=== PATIENT | male | born 1960 | race Caucasian/White ===

== ENCOUNTER 2019-05-24 06:26 | Inpatient (IN) | payer MEDICARE, BC, MEDICAID ==
[~2019-05-24] VITALS: Ht 162.6 cm; Wt 145.6 kg
[2019-05-24] MEDS ORDERED: FENTANYL CITRATE/PF 50MCG/ML 2ML VIAL IV ONE ×2 (07:30→09:30)
[2019-05-24] MEDS ORDERED: ONDANSETRON HCL 4MG/2ML INJ IV ONE (07:30)
[2019-05-24] MEDS ORDERED: DIATR MEGLU/DIATRIZOATE SOLN 120ML ONE (08:11)
[2019-05-24 09:08] LABS: BASOPHILS % 1.5 % (0.0-2.0); EOSINOPHILS % 0.2 % (0.0-5.0); HEMATOCRIT. 25.3 % (42.0-52.0); HEMOGLOBIN. 8.2 g/dL (14.0-18.0); LYMPHOCYTES % 44.1 % (20.0-50.0); MEAN CORPUSCULAR VOLUME 71.2 fL (80.0-94.0); MONOCYTES % 1.8 % (2.0-8.0); NEUTROPHILS % 52.4 % (40.0-76.0); RED BLOOD CELL COUNT 3.55 mill/uL (4.7-6.1); RED CELL DISTRIBUTION WIDTH 22.7 % (11.6-14.6)
[2019-05-24 09:15] LABS: CHLORIDE 110 mEq/L (98-107); PROTHROMBIN TIME 10.4 sec (9.6-11.0)
[2019-05-24 09:56] LABS: PLATELET 205 x1000/uL (130-400); PLATELET ESTIMATE NORMAL
[2019-05-24] MEDS ORDERED: SODIUM CHLORIDE 0.9% 1,000 ML IV ONE ×3 (10:06→23:30)
[2019-05-24 10:27] LABS: CLARITY URINE TURBID (CLEAR); COLOR URINE YELLOW (YELLOW); KETONES URINE NEGATIVE (NEGATIVE); LEUKOCYTE ESTERASE URINE 2+ (NEGATIVE); NITRITE URINE NEGATIVE (NEGATIVE); OCCULT BLOOD URINE NEGATIVE (NEGATIVE); PH URINE 5.5 (4.5-8.0); PROTEIN URINE NEGATIVE (NEGATIVE); UROBILINOGEN URINE 0.2 E.U./dL (0.2-1.0)
[2019-05-24] MEDS ORDERED: MORPHINE SULFATE 10 MG/ML CPJ IV ONE (10:45)
[2019-05-24] MEDS ORDERED: ACETAMINOPHEN 325MG TABLET PO PRN (12:00)
[2019-05-24] MEDS ORDERED: ONDANSETRON HCL 4MG/2ML INJ IV PRN (12:00)
[2019-05-24] MEDS ORDERED: DEXTROSE 50% WATER 50ML SYRINGE IV PRN (12:00)
[2019-05-24] MEDS ORDERED: HYDROCODONE/ACETAMINOPHEN 5/325MG TABLET PO PRN (12:00)
[2019-05-24] MEDS: BLOOD SUGAR DIAGNOSTIC STRIP TEST SCH ×3 (13:00→21:00)
[2019-05-24] MEDS: INSULIN LISPRO 100 UNITS/ML SUBCUT SCH ×3 (13:20→21:00)
[2019-05-24] MEDS ORDERED: MORPHINE SULFATE 4 MG/ML CPJ (NOT FOR IM USE) IV PRN (14:45)
[2019-05-24] MEDS: MORPHINE SULFATE 2 MG/ML CPJ (NOT FOR IM USE) IV PRN ×3 (15:25→22:04)
[2019-05-24 16:00] VITALS: BP 68/37
[2019-05-24 17:00] VITALS: BP 95/55
[2019-05-24 17:30] VITALS: BP 99/50
[2019-05-24 20:00] VITALS: BP 95/63
[2019-05-24] MEDS: HEPARIN 5000 UNITS/ML VIAL SUBCUT SCH (20:35)
[2019-05-24 21:00] VITALS: BP 120/87
[2019-05-24] MEDS: LORAZEPAM 2MG/ML CPJ IV PRN (22:04)
[2019-05-24] MEDS ORDERED: SODIUM CHLORIDE 0.9% 100 ML IV ONE (22:30)
[2019-05-25] VITALS (8 sets, daily range): BP systolic 89–107; BP diastolic 50–68
[2019-05-25] MEDS: SODIUM CHLORIDE 0.9% 1,000 ML IV SCH ×5 (00:29→19:02)
[2019-05-25] MEDS: MORPHINE SULFATE 2 MG/ML CPJ (NOT FOR IM USE) IV PRN ×5 (02:30→21:59)
[2019-05-25] MEDS ORDERED: METOPROLOL TARTRATE 5MG/5ML VIAL IV PRN (05:30)
[2019-05-25] MEDS ORDERED: SODIUM CHLORIDE 0.9% 1,000 ML IV ONE (05:45)
[2019-05-25] MEDS: BLOOD SUGAR DIAGNOSTIC STRIP TEST SCH ×4 (07:46→21:00)
[2019-05-25] MEDS: INSULIN LISPRO 100 UNITS/ML SUBCUT SCH ×4 (07:47→21:00)
[2019-05-25] MEDS: HEPARIN 5000 UNITS/ML VIAL SUBCUT SCH ×2 (08:31→21:01)
[2019-05-25 13:45] LABS: HEMOGLOBIN. 7.2 g/dL (14.0-18.0); MEAN CORPUSCULAR HEMOGLOBIN 23.2 pg (28.0-32.0); MEAN CORPUSCULAR VOLUME 70.6 fL (80.0-94.0); MEAN PLATELET VOLUME 9.9 fl (7.4-10.4); PLATELET 204 x1000/uL (130-400); RED BLOOD CELL COUNT 3.11 mill/uL (4.7-6.1); RED CELL DISTRIBUTION WIDTH 22.3 % (11.6-14.6)
[2019-05-25 14:04] LABS: CHLORIDE 112 mEq/L (98-107)
[2019-05-25] MEDS: HYDROCODONE/ACETAMINOPHEN 5/325MG TABLET PO PRN (17:08)
[2019-05-25 17:10] LABS: PLATELET ESTIMATE NORMAL
[2019-05-25] MEDS ORDERED: OMEPRAZOLE 20MG CAPSULE EXTENDED RELEASE PO SCH (20:15)
[2019-05-26] VITALS (15 sets, daily range): BP systolic 76–109; BP diastolic 35–68
[2019-05-26] MEDS: HYDROCODONE/ACETAMINOPHEN 5/325MG TABLET PO PRN ×2 (00:06→10:32)
[2019-05-26] MEDS: SODIUM CHLORIDE 0.9% 1,000 ML IV SCH ×4 (02:01→21:19)
[2019-05-26] MEDS: MORPHINE SULFATE 2 MG/ML CPJ (NOT FOR IM USE) IV PRN ×2 (05:00→16:45)
[2019-05-26] MEDS: BLOOD SUGAR DIAGNOSTIC STRIP TEST SCH ×4 (06:54→21:09)
[2019-05-26] MEDS: INSULIN LISPRO 100 UNITS/ML SUBCUT SCH ×4 (07:50→21:00)
[2019-05-26] MEDS: HEPARIN 5000 UNITS/ML VIAL SUBCUT SCH ×2 (09:00→21:14)
[2019-05-26 11:56] LABS: CHLORIDE 111 mEq/L (98-107)
[2019-05-26 11:58] LABS: MEAN CORPUSCULAR HEMOGLOBIN 23.1 pg (28.0-32.0); MEAN CORPUSCULAR VOLUME 70.2 fL (80.0-94.0); MEAN PLATELET VOLUME 10.4 fl (7.4-10.4); PLATELET 204 x1000/uL (130-400); RED BLOOD CELL COUNT 2.95 mill/uL (4.7-6.1); RED CELL DISTRIBUTION WIDTH 22.6 % (11.6-14.6)
[2019-05-26 12:08] LABS: HEMATOCRIT. 20.7 % (42.0-52.0); HEMOGLOBIN. 6.8 g/dL (14.0-18.0)
[2019-05-26] MEDS ORDERED: POTASSIUM CHLORIDE 20MEQ TABLET SR PO NR (12:15)
[2019-05-26] MEDS: LIDOCAINE HCL 4% CREAM 76GM TUBE TP SCH ×2 (12:18→17:15)
[2019-05-26] MEDS ORDERED: SODIUM CHLORIDE 0.9% 500 ML IV ONE ×2 (13:00→13:10)
[2019-05-26 14:24] LABS: PLATELET ESTIMATE NORMAL
[2019-05-26] MEDS ORDERED: MAGNESIUM 2 G PREMIX 50 ML IV SCH (17:00)
[2019-05-27] VITALS (8 sets, daily range): BP systolic 85–108; BP diastolic 42–63
[2019-05-27] MEDS: LIDOCAINE HCL 4% CREAM 76GM TUBE TP SCH ×4 (01:21→17:22)
[2019-05-27] MEDS: FILGRASTIM-TBO 480 MCG/0.8 ML SYRINGE SQ SCH ×2 (01:22→20:39)
[2019-05-27] MEDS: SODIUM CHLORIDE 0.9% 1,000 ML IV SCH (05:01)
[2019-05-27] MEDS: BLOOD SUGAR DIAGNOSTIC STRIP TEST SCH ×4 (06:20→20:24)
[2019-05-27 06:55] LABS: CHLORIDE 109 mEq/L (98-107)
[2019-05-27 07:26] LABS: HEMATOCRIT. 22.6 % (42.0-52.0); HEMOGLOBIN. 7.6 g/dL (14.0-18.0); MEAN PLATELET VOLUME 10.6 fl (7.4-10.4); PLATELET 214 x1000/uL (130-400); RED BLOOD CELL COUNT 3.18 mill/uL (4.7-6.1); RED CELL DISTRIBUTION WIDTH 23.9 % (11.6-14.6)
[2019-05-27] MEDS: INSULIN LISPRO 100 UNITS/ML SUBCUT SCH ×4 (07:40→20:24)
[2019-05-27] MEDS: HEPARIN 5000 UNITS/ML VIAL SUBCUT SCH ×2 (08:47→20:39)
[2019-05-27] MEDS ORDERED: MAGNESIUM 2 G PREMIX 50 ML IV SCH (10:00)
[2019-05-27] MEDS ORDERED: SODIUM CHL 0.9% + KCL 20MEQ/L 1,000 ML IV ONE (10:00)
[2019-05-27 10:37] LABS: INR 1.1; PROTHROMBIN TIME 11.4 sec (9.6-11.0)
[2019-05-27] MEDS: LORAZEPAM 2MG/ML CPJ IV PRN (12:22)
[2019-05-27] MEDS: MORPHINE SULFATE 2 MG/ML CPJ (NOT FOR IM USE) IV PRN ×2 (17:32→22:12)
[2019-05-27 23:23] LABS: PLATELET ESTIMATE NORMAL
[2019-05-28] VITALS: BP 100/62
[2019-05-28] MEDS: LIDOCAINE HCL 4% CREAM 76GM TUBE TP SCH ×4 (00:01→17:03)
[2019-05-28] MEDS: LORAZEPAM 2MG/ML CPJ IV PRN (01:57)
[2019-05-28] MEDS: SODIUM CHLORIDE 0.9% 1,000 ML IV SCH ×4 (02:17→21:15)
[2019-05-28 04:00] VITALS: BP 98/53
[2019-05-28] MEDS: BLOOD SUGAR DIAGNOSTIC STRIP TEST SCH ×4 (05:50→21:14)
[2019-05-28] MEDS: INSULIN LISPRO 100 UNITS/ML SUBCUT SCH ×4 (07:29→21:00)
[2019-05-28 08:00] VITALS: BP 105/54
[2019-05-28] MEDS: HEPARIN 5000 UNITS/ML VIAL SUBCUT SCH ×2 (08:00→21:14)
[2019-05-28 12:00] VITALS: BP 107/61
[2019-05-28] MEDS: MORPHINE SULFATE 2 MG/ML CPJ (NOT FOR IM USE) IV PRN ×2 (13:01→21:16)
[2019-05-28 15:37] LABS: HEMATOCRIT. 21.9 % (42.0-52.0); HEMOGLOBIN. 7.3 g/dL (14.0-18.0); MEAN CORPUSCULAR HEMOGLOBIN 23.4 pg (28.0-32.0); MEAN CORPUSCULAR VOLUME 70.5 fL (80.0-94.0); MEAN PLATELET VOLUME 10.1 fl (7.4-10.4); PLATELET 232 x1000/uL (130-400); RED BLOOD CELL COUNT 3.11 mill/uL (4.7-6.1); RED CELL DISTRIBUTION WIDTH 23.8 % (11.6-14.6)
[2019-05-28 15:43] LABS: CHLORIDE 110 mEq/L (98-107)
[2019-05-28 16:00] VITALS: BP 104/56
[2019-05-28] MEDS: HYDROCODONE/ACETAMINOPHEN 5/325MG TABLET PO PRN (17:03)
[2019-05-28] MEDS ORDERED: POTASSIUM CHLORIDE INJ 40 MEQ in DEXT 5% WATER 250 ML IV SCH (18:00)
[2019-05-28 18:05] LABS: PLATELET ESTIMATE NORMAL
[2019-05-28 20:00] VITALS: BP 98/52
[2019-05-28] MEDS: FILGRASTIM-TBO 480 MCG/0.8 ML SYRINGE SQ SCH (21:15)
[2019-05-29] VITALS: BP_SYST 129; BP_SYST 83; BP_DIAS 52; BP_DIAS 60
[2019-05-29] MEDS: LIDOCAINE HCL 4% CREAM 76GM TUBE TP SCH ×5 (02:26→23:09)
[2019-05-29] MEDS: SODIUM CHLORIDE 0.9% 1,000 ML IV SCH ×3 (02:26→17:41)
[2019-05-29] MEDS: LORAZEPAM 2MG/ML CPJ IV PRN (02:26)
[2019-05-29 04:00] VITALS: BP 111/57
[2019-05-29] MEDS ORDERED: HYDROCORTISONE SOD SUCCINATE 100 MG/2 ML VIAL IV NR (05:00)
[2019-05-29] MEDS: BLOOD SUGAR DIAGNOSTIC STRIP TEST SCH ×4 (05:27→20:51)
[2019-05-29] MEDS ORDERED: POTASSIUM CHLORIDE INJ 40 MEQ in DEXT 5% WATER 250 ML IV NR (06:00)
[2019-05-29 07:09] LABS: CHLORIDE 110 mEq/L (98-107)
[2019-05-29 07:12] LABS: BASOPHILS % 0.2 % (0.0-2.0); EOSINOPHILS % 0.6 % (0.0-5.0); HEMATOCRIT. 22.9 % (42.0-52.0); HEMOGLOBIN. 7.6 g/dL (14.0-18.0); MEAN CORPUSCULAR HEMOGLOBIN 23.8 pg (28.0-32.0); MEAN CORPUSCULAR VOLUME 71.6 fL (80.0-94.0); MEAN PLATELET VOLUME 9.6 fl (7.4-10.4); MONOCYTES % 12.4 % (2.0-8.0); NEUTROPHILS % 74.8 % (40.0-76.0); PLATELET 233 x1000/uL (130-400); RED BLOOD CELL COUNT 3.19 mill/uL (4.7-6.1); RED CELL DISTRIBUTION WIDTH 24.1 % (11.6-14.6)
[2019-05-29] MEDS: INSULIN LISPRO 100 UNITS/ML SUBCUT SCH ×4 (07:32→20:51)
[2019-05-29 08:01] VITALS: BP 100/59
[2019-05-29] MEDS: HEPARIN 5000 UNITS/ML VIAL SUBCUT SCH ×2 (08:14→20:51)
[2019-05-29 12:21] VITALS: BP 104/70
[2019-05-29] MEDS: HYDROCODONE/ACETAMINOPHEN 5/325MG TABLET PO PRN ×2 (13:40→21:45)
[2019-05-29 16:00] VITALS: BP 103/57
[2019-05-29] MEDS: MORPHINE SULFATE 2 MG/ML CPJ (NOT FOR IM USE) IV PRN (16:32)
[2019-05-29 16:43] LABS: CREATINE KINASE 71 IU/L (39-308)
[2019-05-29] MEDS: POLYVINYL ALCOHOL OPHTH DROPS 15ML BOTHEYE PRN (17:40)
[2019-05-29 20:00] VITALS: BP 107/74
[2019-05-30] VITALS (8 sets, daily range): BP systolic 80–141; BP diastolic 46–86
[2019-05-30] MEDS: MORPHINE SULFATE 2 MG/ML CPJ (NOT FOR IM USE) IV PRN ×3 (01:30→10:14)
[2019-05-30] MEDS: SODIUM CHLORIDE 0.9% 1,000 ML IV SCH ×2 (03:53→18:19)
[2019-05-30] MEDS: LIDOCAINE HCL 4% CREAM 76GM TUBE TP SCH ×3 (05:52→18:18)
[2019-05-30] MEDS ORDERED: GUAIFENESIN 200MG/10ML SUGAR FREE UDC PO PRN (06:00)
[2019-05-30] MEDS: BLOOD SUGAR DIAGNOSTIC STRIP TEST SCH ×4 (06:33→21:16)
[2019-05-30 06:58] LABS: HEMATOCRIT. 23.1 % (42.0-52.0); HEMOGLOBIN. 7.6 g/dL (14.0-18.0); MEAN CORPUSCULAR HEMOGLOBIN 23.5 pg (28.0-32.0); MEAN CORPUSCULAR VOLUME 71.3 fL (80.0-94.0); MEAN PLATELET VOLUME 9.3 fl (7.4-10.4); PLATELET 268 x1000/uL (130-400); RED BLOOD CELL COUNT 3.24 mill/uL (4.7-6.1); RED CELL DISTRIBUTION WIDTH 24.6 % (11.6-14.6)
[2019-05-30 07:34] LABS: CHLORIDE 108 mEq/L (98-107)
[2019-05-30] MEDS: INSULIN LISPRO 100 UNITS/ML SUBCUT SCH ×4 (07:50→21:00)
[2019-05-30] MEDS: POTASSIUM CHLORIDE 20MEQ TABLET SR PO SCH (08:53)
[2019-05-30] MEDS: POLYVINYL ALCOHOL OPHTH DROPS 15ML BOTHEYE PRN (08:54)
[2019-05-30] MEDS: HEPARIN 5000 UNITS/ML VIAL SUBCUT SCH ×3 (08:54→12:06)
[2019-05-30 09:21] LABS: PLATELET ESTIMATE NORMAL
[2019-05-30] MEDS ORDERED: MAGNESIUM 2 G PREMIX 50 ML IV NR (10:00)
[2019-05-30] MEDS: HYDROCODONE/ACETAMINOPHEN 5/325MG TABLET PO PRN ×2 (12:08→16:02)
[2019-05-30] MEDS ORDERED: MAGN400T29 MT (14:22)
[2019-05-30] MEDS ORDERED: HYDR-4001 PO (14:22)
[2019-05-30] MEDS ORDERED: DIGO-26 PO (14:22)
[2019-05-30] MEDS ORDERED: POTA20TA82 PO (14:22)
[2019-05-30] MEDS ORDERED: LORAZEPAM 2MG/ML CPJ IV NR (16:50)
[2019-05-30] MEDS ORDERED: DIGOXIN 125MCG TABLET PO SCH (18:00)
[2019-05-31] VITALS: BP 112/61
[2019-05-31] MEDS: LIDOCAINE HCL 4% CREAM 76GM TUBE TP SCH ×4 (00:55→17:50)
[2019-05-31 04:00] VITALS: BP 105/71
[2019-05-31] MEDS: BLOOD SUGAR DIAGNOSTIC STRIP TEST SCH ×4 (06:17→21:00)
[2019-05-31] MEDS: INSULIN LISPRO 100 UNITS/ML SUBCUT SCH ×4 (06:17→21:00)
[2019-05-31] MEDS: SODIUM CHLORIDE 0.9% 1,000 ML IV SCH (06:18)
[2019-05-31 06:19] LABS: HEMATOCRIT. 24.2 % (42.0-52.0); HEMOGLOBIN. 8.1 g/dL (14.0-18.0); MEAN CORPUSCULAR HEMOGLOBIN 23.8 pg (28.0-32.0); MEAN CORPUSCULAR VOLUME 71.3 fL (80.0-94.0); MEAN PLATELET VOLUME 9.2 fl (7.4-10.4); PLATELET 262 x1000/uL (130-400); RED CELL DISTRIBUTION WIDTH 24.8 % (11.6-14.6)
[2019-05-31 07:16] LABS: CHLORIDE 108 mEq/L (98-107)
[2019-05-31 08:00] VITALS: BP 109/58
[2019-05-31] MEDS: POTASSIUM CHLORIDE 20MEQ TABLET SR PO SCH (09:11)
[2019-05-31] MEDS: HYDROCODONE/ACETAMINOPHEN 5/325MG TABLET PO PRN ×2 (09:12→20:28)
[2019-05-31] MEDS: HEPARIN 5000 UNITS/ML VIAL SUBCUT SCH ×2 (09:16→21:59)
[2019-05-31 12:00] VITALS: BP 100/71
[2019-05-31 13:09] LABS: PLATELET ESTIMATE NORMAL
[2019-05-31 16:11] VITALS: BP 101/71
[2019-05-31 20:00] VITALS: BP 123/84
[2019-05-31] MEDS: SOTALOL HCL 80MG TABLET PO SCH (21:58)
[2019-05-31] MEDS: HYDROCORTISONE ACETATE 25MG SUPP PR SCH (21:58)
[2019-06-01] VITALS: BP 101/68
[2019-06-01] MEDS: LIDOCAINE HCL 4% CREAM 76GM TUBE TP SCH ×4 (00:51→18:19)
[2019-06-01 04:00] VITALS: BP 97/63
[2019-06-01] MEDS: HYDROCODONE/ACETAMINOPHEN 5/325MG TABLET PO PRN ×2 (05:04→12:21)
[2019-06-01 06:56] LABS: CHLORIDE 112 mEq/L (98-107)
[2019-06-01 06:59] LABS: BASOPHILS % 0.5 % (0.0-2.0); EOSINOPHILS % 0.3 % (0.0-5.0); HEMATOCRIT. 24.4 % (42.0-52.0); HEMOGLOBIN. 8.1 g/dL (14.0-18.0); LYMPHOCYTES % 18.6 % (20.0-50.0); MEAN CORPUSCULAR HEMOGLOBIN 23.3 pg (28.0-32.0); MEAN CORPUSCULAR VOLUME 70.1 fL (80.0-94.0); MEAN PLATELET VOLUME 9.4 fl (7.4-10.4); NEUTROPHILS % 68.6 % (40.0-76.0); PLATELET 230 x1000/uL (130-400); RED BLOOD CELL COUNT 3.49 mill/uL (4.7-6.1); RED CELL DISTRIBUTION WIDTH 24.7 % (11.6-14.6)
[2019-06-01] MEDS: INSULIN LISPRO 100 UNITS/ML SUBCUT SCH ×4 (07:50→20:41)
[2019-06-01 08:05] VITALS: BP 104/66
[2019-06-01] MEDS: POTASSIUM CHLORIDE 20MEQ TABLET SR PO SCH (08:13)
[2019-06-01] MEDS: HEPARIN 5000 UNITS/ML VIAL SUBCUT SCH ×2 (08:14→20:40)
[2019-06-01] MEDS: MORPHINE SULFATE 2 MG/ML CPJ (NOT FOR IM USE) IV PRN ×3 (08:27→23:12)
[2019-06-01] MEDS ORDERED: POTASSIUM CHLORIDE 20MEQ TABLET SR PO SCH (09:00)
[2019-06-01] MEDS: SOTALOL HCL 80MG TABLET PO SCH ×2 (09:00→20:41)
[2019-06-01] MEDS: HYDROCORTISONE ACETATE 25MG SUPP PR SCH ×2 (09:21→09:30)
[2019-06-01] MEDS: MAGNESIUM GLUCONATE 500MG TABLET PO SCH (09:21)
[2019-06-01] MEDS: BLOOD SUGAR DIAGNOSTIC STRIP TEST SCH ×4 (09:40→20:41)
[2019-06-01] MEDS ORDERED: POTASSIUM CHLORIDE 20MEQ/PACKET PO ONE (11:00)
[2019-06-01] MEDS ORDERED: LOPERAMIDE HCL 2MG CAPSULE PO PRN (11:45)
[2019-06-01] MEDS ORDERED: MAGNESIUM 2 G PREMIX 50 ML IV SCH (12:00)
[2019-06-01 12:15] VITALS: BP 114/74
[2019-06-01] MEDS: MORPHINE SULFATE 15MG TABLET SR PO SCH ×2 (13:58→20:40)
[2019-06-01 16:14] VITALS: BP 110/76
[2019-06-01 20:00] VITALS: BP 100/68
[2019-06-02] VITALS: BP 100/65
[2019-06-02] MEDS: LIDOCAINE HCL 4% CREAM 76GM TUBE TP SCH
[2019-06-02] MEDS: MORPHINE SULFATE 2 MG/ML CPJ (NOT FOR IM USE) IV PRN ×2 (03:18→08:32)
[2019-06-02 04:00] VITALS: BP 106/68
[2019-06-02] MEDS: BLOOD SUGAR DIAGNOSTIC STRIP TEST SCH (07:20)
[2019-06-02] MEDS: INSULIN LISPRO 100 UNITS/ML SUBCUT SCH (07:50)
[2019-06-02 08:00] VITALS: BP 108/71
[2019-06-02 08:01] LABS: BASOPHILS % 1.1 % (0.0-2.0); EOSINOPHILS % 0.7 % (0.0-5.0); HEMATOCRIT. 24.3 % (42.0-52.0); HEMOGLOBIN. 8.2 g/dL (14.0-18.0); LYMPHOCYTES % 23.9 % (20.0-50.0); MEAN CORPUSCULAR HEMOGLOBIN 23.9 pg (28.0-32.0); MEAN CORPUSCULAR VOLUME 70.5 fL (80.0-94.0); MEAN PLATELET VOLUME 8.8 fl (7.4-10.4); MONOCYTES % 10.4 % (2.0-8.0); NEUTROPHILS % 63.9 % (40.0-76.0); PLATELET 214 x1000/uL (130-400); RED BLOOD CELL COUNT 3.45 mill/uL (4.7-6.1); RED CELL DISTRIBUTION WIDTH 25.3 % (11.6-14.6)
[2019-06-02 08:17] LABS: CHLORIDE 112 mEq/L (98-107)
[2019-06-02] MEDS: SOTALOL HCL 80MG TABLET PO SCH (09:00)
[2019-06-02] MEDS: HYDROCORTISONE ACETATE 25MG SUPP PR SCH (09:00)
[2019-06-02 09:37] VITALS: BP 108/71
[2019-06-02] MEDS: POTASSIUM CHLORIDE 20MEQ TABLET SR PO SCH (09:37)
[2019-06-02] MEDS: MORPHINE SULFATE 15MG TABLET SR PO SCH (09:37)
[2019-06-02] MEDS: MAGNESIUM GLUCONATE 500MG TABLET PO SCH (09:39)
[2019-06-02] MEDS: HEPARIN 5000 UNITS/ML VIAL SUBCUT SCH (09:41)
[2019-06-02] MEDS ORDERED: HYDR25SU11 PR (10:17)
[2019-06-02] MEDS ORDERED: DEXTL PO (10:17)
[2019-06-02] MEDS ORDERED: SOTA80TA25 PO (10:17)
[2019-06-02 15:03] LABS: TOTAL IRON BINDING CAPACITY 126 ug/dL (250-450)
== END 2019-06-02 14:35 | disposition home or self-care (01) | DRG 840 ==
LOC: ER 06:51 → 6EST 10:46 → EDBEDREQ 10:48 → ENRESERV 15:18 → 6WST 05-25 09:52
PROVIDERS: ADMIT Internal Medicine; ATTEND Internal Medicine
PROC: 30233N1 Transfusion of Nonautologous Red Blood Cells into Peripheral Vein, Percutaneous Approach (ICD-10-PCS; principal; 2019-05-26)
DX: C85.83 Other specified types of non-Hodgkin lymphoma, intra-abdominal lymph nodes (principal); E43 Unspecified severe protein-calorie malnutrition; D61.818 Other pancytopenia; J98.11 Atelectasis; I42.9 Cardiomyopathy, unspecified; I48.92 Unspecified atrial flutter; N39.0 Urinary tract infection, site not specified; Z68.43 Body mass index [BMI] 50.0-59.9, adult; R64 Cachexia; E11.9 Type 2 diabetes mellitus without complications; K62.89 Other specified diseases of anus and rectum; K80.20 Calculus of gallbladder without cholecystitis without obstruction; E83.42 Hypomagnesemia; E87.6 Hypokalemia; I10 Essential (primary) hypertension; R34 Anuria and oliguria; R00.0 Tachycardia, unspecified; E66.01 Morbid (severe) obesity due to excess calories; G89.3 Neoplasm related pain (acute) (chronic); I25.10 Atherosclerotic heart disease of native coronary artery without angina pectoris; I48.0 Paroxysmal atrial fibrillation; I95.9 Hypotension, unspecified; R59.0 Localized enlarged lymph nodes; Z92.21 Personal history of antineoplastic chemotherapy
CPT/HCPCS: 36415; 71045; 74176; 80048; 80053; 81003; 82105; 82378; 82550; 82728; 82962; 83036; 83540; 83550; 83615; 83735; 83880; 84484; 84550; 85025; 85384; 86850; 86900; 86920; 93005; 93306; 99285; J1442; J1644; J1720; J1815; J2060; J2270; J2405; J3010; J3475; J3480; J7030; J7060; P9021; Q9963

== ENCOUNTER 2019-06-06 11:35 | Inpatient (IN) | payer BC ==
[~2019-06-06] VITALS: Ht 185.4 cm; Wt 79.4 kg
[~2019-06-06 11:35] MED LIST: DEXTL PO; HYDR-4001 PO; HYDR25SU11 PR; MAGN400T29 MT; POTA20TA82 PO; SOTA80TA25 PO
[2019-06-06] MEDS ORDERED: MORPHINE SULFATE 4 MG/ML CPJ (NOT FOR IM USE) IV STA (12:14)
[2019-06-06] MEDS ORDERED: LIDOCAINE HCL 2% JELLY 5ML MM ONE (12:15)
[2019-06-06 14:29] LABS: CHLORIDE 106 mEq/L (98-107)
[2019-06-06 14:31] LABS: BASOPHILS % 0.7 % (0.0-2.0); HEMATOCRIT. 28.3 % (42.0-52.0); HEMOGLOBIN. 9.3 g/dL (14.0-18.0); LYMPHOCYTES % 10.8 % (20.0-50.0); MEAN CORPUSCULAR HEMOGLOBIN 23.6 pg (28.0-32.0); MEAN CORPUSCULAR VOLUME 72.1 fL (80.0-94.0); MONOCYTES % 3.9 % (2.0-8.0); NEUTROPHILS % 84.6 % (40.0-76.0); RED BLOOD CELL COUNT 3.93 mill/uL (4.7-6.1); RED CELL DISTRIBUTION WIDTH 25.3 % (11.6-14.6)
[2019-06-06] MEDS ORDERED: MORPHINE SULFATE 4 MG/ML CPJ (NOT FOR IM USE) IV ONE (14:45)
[2019-06-06 15:55] LABS: PLATELET ESTIMATE NORMAL
[2019-06-06 16:03] LABS: PLATELET 250 x1000/uL (130-400)
[2019-06-06 17:25] VITALS: BP 92/59
[2019-06-06 17:44] VITALS: BP 92/59
[2019-06-06] MEDS ORDERED: DOCUSATE SODIUM 100MG CAPSULE PO PRN (19:00)
[2019-06-06] MEDS ORDERED: NA PHOS,M-B/NA PHOS,DI-BA ENEMA 118ML PR PRN (19:00)
[2019-06-06] MEDS ORDERED: HYDRALAZINE 20MG/ML VIAL IV PRN (19:00)
[2019-06-06] MEDS ORDERED: ONDANSETRON HCL 4MG/2ML INJ IV PRN (19:00)
[2019-06-06] MEDS ORDERED: DIPHENHYDRAMINE 50MG/ML VIAL IV PRN (19:00)
[2019-06-06] MEDS ORDERED: MAGNESIUM/ALUMINUM HYDROXIDE/SIMETHICONE 30ML UDC PO PRN (19:00)
[2019-06-06] MEDS ORDERED: DEXTROSE 50% WATER 50ML SYRINGE IV PRN (19:00)
[2019-06-06] MEDS ORDERED: CLONIDINE 0.1MG TABLET PO PRN (19:00)
[2019-06-06] MEDS ORDERED: HYDROCODONE/ACETAMINOPHEN 10/325MG TABLET PO PRN (19:00)
[2019-06-06] MEDS ORDERED: IPRATROPIUM/ALBUTEROL 0.5-3(2.5)MG/3ML NEB NEB PRN (19:00)
[2019-06-06] MEDS ORDERED: HYDRALAZINE 10 MG in SODIUM CHLORIDE 0.9% 49.5 ML IV PRN (19:15)
[2019-06-06 20:00] VITALS: BP 108/82
[2019-06-06] MEDS: ENOXAPARIN 40MG/0.4ML SYR SUBCUT SCH (20:55)
[2019-06-06] MEDS: INSULIN LISPRO 100 UNITS/ML SUBCUT SCH (21:00)
[2019-06-06] MEDS: BLOOD SUGAR DIAGNOSTIC STRIP TEST SCH (21:00)
[2019-06-07] VITALS: BP 99/66
[2019-06-07] MEDS: MORPHINE SULFATE 2 MG/ML CPJ (NOT FOR IM USE) IV PRN ×4 (00:15→16:09)
[2019-06-07] MEDS: GUAIFENESIN 200MG/10ML SUGAR FREE UDC PO PRN ×4 (00:21→20:22)
[2019-06-07 04:00] VITALS: BP 101/53
[2019-06-07] MEDS: BLOOD SUGAR DIAGNOSTIC STRIP TEST SCH ×4 (07:01→19:42)
[2019-06-07] MEDS: INSULIN LISPRO 100 UNITS/ML SUBCUT SCH ×4 (07:02→19:42)
[2019-06-07 08:00] VITALS: BP 102/54
[2019-06-07 10:19] LABS: HEMATOCRIT. 28.4 % (42.0-52.0); HEMOGLOBIN. 9.1 g/dL (14.0-18.0); MEAN CORPUSCULAR HEMOGLOBIN 23.2 pg (28.0-32.0); MEAN PLATELET VOLUME 10.6 fl (7.4-10.4); PLATELET 221 x1000/uL (130-400); RED BLOOD CELL COUNT 3.94 mill/uL (4.7-6.1)
[2019-06-07 10:38] LABS: CHLORIDE 105 mEq/L (98-107)
[2019-06-07 10:56] LABS: PLATELET ESTIMATE NORMAL
[2019-06-07 12:00] VITALS: BP 86/50
[2019-06-07 12:43] LABS: CLARITY URINE TURBID (CLEAR); COLOR URINE YELLOW (YELLOW); KETONES URINE NEGATIVE (NEGATIVE); LEUKOCYTE ESTERASE URINE 3+ (NEGATIVE); NITRITE URINE NEGATIVE (NEGATIVE); OCCULT BLOOD URINE 3+ (NEGATIVE); PROTEIN URINE 1+ (NEGATIVE); SPECIFIC GRAVITY URINE 1.013 (1.005-1.030); UROBILINOGEN URINE 0.2 E.U./dL (0.2-1.0)
[2019-06-07] MEDS ORDERED: OPIUM/BELLADONNA ALKALOIDS 30/16.2MG SUPP PR PRN (12:45)
[2019-06-07] MEDS ORDERED: ACETAMINOPHEN 650MG SUPP PR PRN (13:00)
[2019-06-07 13:47] LABS: *AMPHETAMINES SCREEN URINE NEGATIVE (NEGATIVE); *BARBITURATES SCREEN URINE NEGATIVE (NEGATIVE); *BENZODIAZEPINES SCREEN URINE NEGATIVE (NEGATIVE); *COCAINE SCREEN URINE NEGATIVE (NEGATIVE); METHADONE URINE SCREEN NEGATIVE (NEGATIVE)
[2019-06-07 13:48] LABS: CANNABINOID URINE SCREEN NEGATIVE (NEGATIVE); OPIATES URINE SCREEN PRESUMTIVE POSITIVE (NEGATIVE); PHENCYCLIDINE URINE SCREEN NEGATIVE (NEGATIVE)
[2019-06-07 16:56] LABS: HEMATOCRIT. 28.7 % (42.0-52.0); MEAN CORPUSCULAR VOLUME 73.4 fL (80.0-94.0); MEAN PLATELET VOLUME 10.8 fl (7.4-10.4); PLATELET 215 x1000/uL (130-400); RED BLOOD CELL COUNT 3.91 mill/uL (4.7-6.1)
[2019-06-07 20:00] VITALS: BP 98/62
[2019-06-07] MEDS: LORAZEPAM 2MG/ML CPJ IV PRN (20:22)
[2019-06-07] MEDS: ENOXAPARIN 40MG/0.4ML SYR SUBCUT SCH (20:23)
[2019-06-07 21:24] LABS: PLATELET ESTIMATE NORMAL
[2019-06-07] MEDS ORDERED: DIGO-26 (21:49)
[2019-06-08] VITALS: BP 99/61
[2019-06-08] MEDS: SODIUM CHLORIDE 0.9% INJ 3ML FLUSH IVF SCH ×4 (00:10→20:49)
[2019-06-08] MEDS: LORAZEPAM 2MG/ML CPJ IV PRN ×2 (00:10→20:38)
[2019-06-08 04:00] VITALS: BP 98/63
[2019-06-08] MEDS: INSULIN LISPRO 100 UNITS/ML SUBCUT SCH ×4 (07:47→20:48)
[2019-06-08] MEDS: BLOOD SUGAR DIAGNOSTIC STRIP TEST SCH ×4 (07:47→20:38)
[2019-06-08 08:00] VITALS: BP 104/66
[2019-06-08] MEDS: MORPHINE SULFATE 2 MG/ML CPJ (NOT FOR IM USE) IV PRN ×3 (09:34→18:40)
[2019-06-08 12:00] VITALS: BP 111/68
[2019-06-08 16:00] VITALS: BP 90/60
[2019-06-08 20:00] VITALS: BP 98/62
[2019-06-08] MEDS: ENOXAPARIN 40MG/0.4ML SYR SUBCUT SCH (20:37)
[2019-06-08] MEDS: GUAIFENESIN 200MG/10ML SUGAR FREE UDC PO PRN (22:42)
[2019-06-09] VITALS (8 sets, daily range): BP systolic 86–109; BP diastolic 50–69
[2019-06-09] MEDS: LORAZEPAM 2MG/ML CPJ IV PRN (03:18)
[2019-06-09] MEDS: SODIUM CHLORIDE 0.9% INJ 3ML FLUSH IVF SCH ×2 (06:00→22:18)
[2019-06-09] MEDS: INSULIN LISPRO 100 UNITS/ML SUBCUT SCH ×4 (06:43→20:27)
[2019-06-09] MEDS: BLOOD SUGAR DIAGNOSTIC STRIP TEST SCH ×3 (06:43→20:26)
[2019-06-09 07:02] LABS: HEMATOCRIT. 27.6 % (42.0-52.0); HEMOGLOBIN. 8.9 g/dL (14.0-18.0); MEAN CORPUSCULAR HEMOGLOBIN 23.1 pg (28.0-32.0); MEAN CORPUSCULAR VOLUME 71.4 fL (80.0-94.0); RED BLOOD CELL COUNT 3.87 mill/uL (4.7-6.1); RED CELL DISTRIBUTION WIDTH 24.7 % (11.6-14.6)
[2019-06-09 07:08] LABS: CHLORIDE 101 mEq/L (98-107)
[2019-06-09 09:14] LABS: PLATELET 196 x1000/uL (130-400)
[2019-06-09 09:17] LABS: PLATELET ESTIMATE NORMAL
[2019-06-09 10:07] LABS: BG BASE EXCESS -1.1 mmol/L (-2.0-2.0); BG DEOXYHEMOGLOBIN 16.7 % (0.0-5.0); BG FRACTION INSPIRED OXYGEN 48; BG METHEMOGLOBIN 0.3 % (0.0-1.5); BG OXYGEN SATURATION 83.1 % (92.0-98.5); BG PCO2 30.5 mmHg (35.0-45.0); BG PH 7.475 (7.350-7.450); BG PO2 47.3 mmHg (75.0-100.0); BG SAMPLE SITE RIGHT BRACHIAL; BG TOTAL HEMOGLOBIN 9.1 g/dL (12.0-18.0); BG VENT MODE NASAL CANNULA
[2019-06-09] MEDS ORDERED: HYDRALAZINE 20MG/ML VIAL IV PRN (12:15)
[2019-06-09] MEDS: MORPHINE SULFATE 2 MG/ML CPJ (NOT FOR IM USE) IV PRN ×2 (13:12→20:15)
[2019-06-09] MEDS: CEFTRIAXONE 1 G PREMIX 50 ML IV SCH (16:09)
[2019-06-09] MEDS: ENOXAPARIN 40MG/0.4ML SYR SUBCUT SCH (20:13)
[2019-06-09] MEDS: IPRATROPIUM/ALBUTEROL 0.5-3(2.5)MG/3ML NEB HHN SCH (23:51)
[2019-06-10] VITALS (18 sets, daily range): BP systolic 82–129; BP diastolic 45–86
[2019-06-10] MEDS: MORPHINE SULFATE 2 MG/ML CPJ (NOT FOR IM USE) IV PRN ×3 (00:38→19:37)
[2019-06-10] MEDS: IPRATROPIUM/ALBUTEROL 0.5-3(2.5)MG/3ML NEB HHN SCH ×5 (04:35→20:39)
[2019-06-10] MEDS: SODIUM CHLORIDE 0.9% INJ 3ML FLUSH IVF SCH ×2 (06:19→23:44)
[2019-06-10] MEDS: BLOOD SUGAR DIAGNOSTIC STRIP TEST SCH ×4 (06:37→21:09)
[2019-06-10] MEDS: INSULIN LISPRO 100 UNITS/ML SUBCUT SCH ×4 (07:20→21:00)
[2019-06-10 09:09] LABS: BG BASE EXCESS -3.2 mmol/L (-2.0-2.0); BG CARBOXYHEMOGLOBIN 0.3 % (0.5-1.5); BG DEOXYHEMOGLOBIN 10.2 % (0.0-5.0); BG HCO3 ACT 20.3 mmol/L (22.0-26.0); BG METHEMOGLOBIN 0.4 % (0.0-1.5); BG OXYGEN SATURATION 89.7 % (92.0-98.5); BG OXYHEMOGLOBIN 89.1 % (94.0-97.0); BG PCO2 29.5 mmHg (35.0-45.0); BG PH 7.455 (7.350-7.450); BG PO2 61.1 mmHg (75.0-100.0); BG SAMPLE SITE RIGHT BRACHIAL; BG TOTAL HEMOGLOBIN 7.4 g/dL (12.0-18.0); BG VENT MODE MASK - VENTI
[2019-06-10 10:11] LABS: HEMATOCRIT. 22.3 % (42.0-52.0); HEMOGLOBIN. 7.3 g/dL (14.0-18.0); MEAN CORPUSCULAR HEMOGLOBIN 23.4 pg (28.0-32.0); MEAN PLATELET VOLUME 12.1 fl (7.4-10.4); PLATELET 165 x1000/uL (130-400); RED BLOOD CELL COUNT 3.13 mill/uL (4.7-6.1); RED CELL DISTRIBUTION WIDTH 23.9 % (11.6-14.6)
[2019-06-10 10:24] LABS: CHLORIDE 102 mEq/L (98-107)
[2019-06-10] MEDS: CEFTRIAXONE 1 G PREMIX 50 ML IV SCH (11:55)
[2019-06-10 12:03] LABS: PLATELET ESTIMATE NORMAL
[2019-06-10] MEDS: ENOXAPARIN 40MG/0.4ML SYR SUBCUT SCH (21:06)
[2019-06-10 23:59] LABS: HEMATOCRIT 22.6 % (42.0-52.0); HEMOGLOBIN 7.6 g/dL (14.0-18.0); MEAN CORPUSCULAR HEMOGLOBIN 24.1 pg (28.0-32.0); PLATELET 156 x1000/uL (130-400); RED BLOOD CELL COUNT 3.14 mill/uL (4.7-6.1); RED CELL DISTRIBUTION WIDTH 24.7 % (11.6-14.6)
[2019-06-11] VITALS (12 sets, daily range): BP systolic 85–112; BP diastolic 52–68
[2019-06-11] MEDS: IPRATROPIUM/ALBUTEROL 0.5-3(2.5)MG/3ML NEB HHN SCH ×6 (00:21→20:47)
[2019-06-11] MEDS: MORPHINE SULFATE 2 MG/ML CPJ (NOT FOR IM USE) IV PRN ×3 (01:38→17:08)
[2019-06-11] MEDS: SODIUM CHLORIDE 0.9% INJ 3ML FLUSH IVF SCH ×3 (06:25→21:25)
[2019-06-11] MEDS: BLOOD SUGAR DIAGNOSTIC STRIP TEST SCH ×4 (06:29→20:42)
[2019-06-11 06:41] LABS: CHLORIDE 100 mEq/L (98-107)
[2019-06-11 06:51] LABS: HEMATOCRIT. 21.6 % (42.0-52.0); HEMOGLOBIN. 7.4 g/dL (14.0-18.0); MEAN CORPUSCULAR HEMOGLOBIN 24.3 pg (28.0-32.0); RED BLOOD CELL COUNT 3.05 mill/uL (4.7-6.1); RED CELL DISTRIBUTION WIDTH 25.1 % (11.6-14.6)
[2019-06-11] MEDS: INSULIN LISPRO 100 UNITS/ML SUBCUT SCH ×4 (07:20→21:00)
[2019-06-11] MEDS: SODIUM CHLORIDE 0.9% 1,000 ML IV SCH ×2 (08:15→20:43)
[2019-06-11 10:37] LABS: PLATELET ESTIMATE SLIGHTLY DECREASED
[2019-06-11 10:40] LABS: PLATELET 123 x1000/uL (130-400)
[2019-06-11] MEDS: CEFTRIAXONE 1 G PREMIX 50 ML IV SCH (11:56)
[2019-06-11] MEDS: GUAIFENESIN 200MG/10ML SUGAR FREE UDC PO PRN (14:00)
[2019-06-11] MEDS: ENOXAPARIN 40MG/0.4ML SYR SUBCUT SCH (20:42)
[2019-06-11] MEDS: HYDROCODONE/ACETAMINOPHEN 5/325MG TABLET PO PRN (23:33)
[2019-06-12] VITALS (13 sets, daily range): BP systolic 85–119; BP diastolic 49–68
[2019-06-12] MEDS: IPRATROPIUM/ALBUTEROL 0.5-3(2.5)MG/3ML NEB HHN SCH ×3 (00:48→23:59)
[2019-06-12] MEDS: SODIUM CHLORIDE 0.9% INJ 3ML FLUSH IVF SCH ×3 (05:39→20:09)
[2019-06-12] MEDS: HYDROCODONE/ACETAMINOPHEN 5/325MG TABLET PO PRN ×4 (05:55→20:07)
[2019-06-12] MEDS: BLOOD SUGAR DIAGNOSTIC STRIP TEST SCH ×4 (05:57→20:08)
[2019-06-12] MEDS: INSULIN LISPRO 100 UNITS/ML SUBCUT SCH ×4 (07:09→20:08)
[2019-06-12] MEDS: SODIUM CHLORIDE 0.9% 1,000 ML IV SCH (09:22)
[2019-06-12] MEDS: CEFTRIAXONE 1 G PREMIX 50 ML IV SCH (11:14)
[2019-06-12] MEDS: IPRATROPIUM BROMIDE (0.02%) 0.5MG/2.5ML NEB HHN PRN ×2 (11:54→15:59)
[2019-06-12] MEDS ORDERED: MEROPENEM 1,000 MG in SODIUM CHLORIDE 0.9% 100 ML IV SCH (14:00)
[2019-06-12] MEDS ORDERED: VISCOUS LIDOCAINE 2% 15 ML UDC PO PRN (14:30)
[2019-06-12] MEDS ORDERED: SOTALOL HCL 80MG TABLET PO NR (14:45)
[2019-06-12] MEDS: MEROPENEM 1,000 MG in SODIUM CHLORIDE 0.9% 100 ML IV SCH (16:24)
[2019-06-12] MEDS: CHLORHEXIDINE GLUCONATE 0.12% ORAL MOUTHWASH SSP SCH ×2 (16:31→20:08)
[2019-06-12] MEDS: ENOXAPARIN 40MG/0.4ML SYR SUBCUT SCH (20:08)
[2019-06-12] MEDS ORDERED: SOTALOL HCL 80MG TABLET PO SCH (21:00)
[2019-06-13] VITALS (16 sets, daily range): BP systolic 82–116; BP diastolic 44–87
[2019-06-13] MEDS: ZOLPIDEM TARTRATE 5MG TABLET PO PRN (00:14)
[2019-06-13] MEDS: MEROPENEM 1,000 MG in SODIUM CHLORIDE 0.9% 100 ML IV SCH ×3 (00:14→16:05)
[2019-06-13] MEDS: SODIUM CHLORIDE 0.9% 1,000 ML IV SCH ×2 (00:18→13:57)
[2019-06-13] MEDS: IPRATROPIUM/ALBUTEROL 0.5-3(2.5)MG/3ML NEB HHN SCH ×3 (03:34→21:03)
[2019-06-13] MEDS: INSULIN LISPRO 100 UNITS/ML SUBCUT SCH ×4 (05:04→21:00)
[2019-06-13] MEDS: HYDROCODONE/ACETAMINOPHEN 5/325MG TABLET PO PRN ×3 (05:04→21:24)
[2019-06-13] MEDS: BLOOD SUGAR DIAGNOSTIC STRIP TEST SCH ×4 (05:04→21:37)
[2019-06-13] MEDS: SODIUM CHLORIDE 0.9% INJ 3ML FLUSH IVF SCH ×2 (05:05→13:53)
[2019-06-13 06:31] LABS: CHLORIDE 104 mEq/L (98-107)
[2019-06-13 06:52] LABS: MEAN CORPUSCULAR HEMOGLOBIN 24.1 pg (28.0-32.0); MEAN CORPUSCULAR VOLUME 71.8 fL (80.0-94.0); MEAN PLATELET VOLUME 11.7 fl (7.4-10.4); RED BLOOD CELL COUNT 2.71 mill/uL (4.7-6.1); RED CELL DISTRIBUTION WIDTH 24.3 % (11.6-14.6)
[2019-06-13 07:02] LABS: HEMATOCRIT. 19.5 % (42.0-52.0); HEMOGLOBIN. 6.5 g/dL (14.0-18.0)
[2019-06-13] MEDS: IPRATROPIUM BROMIDE (0.02%) 0.5MG/2.5ML NEB HHN PRN ×2 (08:05→11:35)
[2019-06-13 09:22] LABS: PLATELET ESTIMATE NORMAL
[2019-06-13 09:24] LABS: PLATELET 130 x1000/uL (130-400)
[2019-06-13] MEDS: SOTALOL HCL 80MG TABLET PO SCH ×2 (09:37→21:25)
[2019-06-13] MEDS: CHLORHEXIDINE GLUCONATE 0.12% ORAL MOUTHWASH SSP SCH ×4 (11:38→21:34)
[2019-06-13] MEDS: ACETAMINOPHEN 325MG TABLET PO PRN (12:32)
[2019-06-13] MEDS: GUAIFENESIN 200MG/10ML SUGAR FREE UDC PO PRN (16:05)
[2019-06-13 19:36] LABS: HEMOGLOBIN 7.3 g/dL (14.0-18.0)
[2019-06-14] VITALS: BP 85/50
[2019-06-14] MEDS: MEROPENEM 1,000 MG in SODIUM CHLORIDE 0.9% 100 ML IV SCH ×3 (00:32→17:39)
[2019-06-14] MEDS: IPRATROPIUM/ALBUTEROL 0.5-3(2.5)MG/3ML NEB HHN SCH ×6 (00:35→20:45)
[2019-06-14] MEDS: SODIUM CHLORIDE 0.9% 1,000 ML IV SCH ×2 (03:56→17:41)
[2019-06-14 04:00] VITALS: BP 88/56
[2019-06-14] MEDS: SODIUM CHLORIDE 0.9% INJ 3ML FLUSH IVF SCH ×3 (06:06→22:00)
[2019-06-14] MEDS: BLOOD SUGAR DIAGNOSTIC STRIP TEST SCH ×4 (06:17→21:41)
[2019-06-14] MEDS: INSULIN LISPRO 100 UNITS/ML SUBCUT SCH ×4 (06:18→21:00)
[2019-06-14 08:00] VITALS: BP 90/57
[2019-06-14] MEDS: SOTALOL HCL 80MG TABLET PO SCH ×2 (09:00→21:39)
[2019-06-14] MEDS: THIAMINE HCL 100MG TABLET PO SCH (09:37)
[2019-06-14] MEDS: CHLORHEXIDINE GLUCONATE 0.12% ORAL MOUTHWASH SSP SCH ×5 (09:40→21:48)
[2019-06-14] MEDS: GUAIFENESIN 200MG/10ML SUGAR FREE UDC PO PRN (09:50)
[2019-06-14 10:02] LABS: HEMATOCRIT. 21.9 % (42.0-52.0); HEMOGLOBIN. 7.3 g/dL (14.0-18.0); MEAN CORPUSCULAR HEMOGLOBIN 24.7 pg (28.0-32.0); MEAN CORPUSCULAR VOLUME 73.9 fL (80.0-94.0); MEAN PLATELET VOLUME 10.7 fl (7.4-10.4); PLATELET 134 x1000/uL (130-400); RED BLOOD CELL COUNT 2.96 mill/uL (4.7-6.1); RED CELL DISTRIBUTION WIDTH 25.6 % (11.6-14.6)
[2019-06-14 10:15] LABS: CHLORIDE 107 mEq/L (98-107)
[2019-06-14 11:22] LABS: PLATELET ESTIMATE NORMAL
[2019-06-14 12:00] VITALS: BP 90/53
[2019-06-14 16:00] VITALS: BP 91/56
[2019-06-14 20:00] VITALS: BP 94/51
[2019-06-14] MEDS ORDERED: POTASSIUM CHLORIDE 20MEQ TABLET SR PO SCH (20:30)
[2019-06-14] MEDS: HYDROCODONE/ACETAMINOPHEN 5/325MG TABLET PO PRN (20:50)
[2019-06-15] VITALS (14 sets, daily range): BP systolic 87–126; BP diastolic 53–68
[2019-06-15] MEDS: ACETAMINOPHEN 325MG TABLET PO PRN (00:22)
[2019-06-15] MEDS: IPRATROPIUM/ALBUTEROL 0.5-3(2.5)MG/3ML NEB HHN SCH ×6 (04:00→21:18)
[2019-06-15] MEDS: MEROPENEM 1,000 MG in SODIUM CHLORIDE 0.9% 100 ML IV SCH ×3 (04:40→16:38)
[2019-06-15] MEDS: BLOOD SUGAR DIAGNOSTIC STRIP TEST SCH ×4 (06:11→21:00)
[2019-06-15] MEDS: SODIUM CHLORIDE 0.9% INJ 3ML FLUSH IVF SCH ×3 (06:30→21:23)
[2019-06-15] MEDS: INSULIN LISPRO 100 UNITS/ML SUBCUT SCH ×4 (06:34→21:00)
[2019-06-15] MEDS: GUAIFENESIN 200MG/10ML SUGAR FREE UDC PO PRN (07:00)
[2019-06-15 07:02] LABS: HEMATOCRIT. 24.7 % (42.0-52.0); HEMOGLOBIN. 8.3 g/dL (14.0-18.0); MEAN CORPUSCULAR HEMOGLOBIN 25.3 pg (28.0-32.0); PLATELET 149 x1000/uL (130-400); RED BLOOD CELL COUNT 3.29 mill/uL (4.7-6.1)
[2019-06-15 07:15] LABS: CHLORIDE 108 mEq/L (98-107)
[2019-06-15] MEDS ORDERED: POTASSIUM CHLORIDE INJ 40 MEQ in DEXT 5% WATER 500 ML IV ONE (08:30)
[2019-06-15] MEDS: FILGRASTIM-TBO 480 MCG/0.8 ML SYRINGE SQ SCH (08:54)
[2019-06-15] MEDS ORDERED: FILGRASTIM 300 MCG/ML VIAL SUBCUT SCH (09:00)
[2019-06-15] MEDS: CHLORHEXIDINE GLUCONATE 0.12% ORAL MOUTHWASH SSP SCH ×4 (09:00→21:24)
[2019-06-15 09:16] LABS: PLATELET ESTIMATE NORMAL
[2019-06-15] MEDS: THIAMINE HCL 100MG TABLET PO SCH (10:53)
[2019-06-15] MEDS: SOTALOL HCL 80MG TABLET PO SCH ×2 (10:53→21:13)
[2019-06-15] MEDS: SODIUM CHLORIDE 0.9% 1,000 ML IV SCH (13:35)
[2019-06-15] MEDS: HYDROCODONE/ACETAMINOPHEN 5/325MG TABLET PO PRN (13:43)
[2019-06-15] MEDS ORDERED: MEGESTROL ACETATE 400 MG/10 ML UDC PO SCH (15:45)
[2019-06-15] MEDS: MEGESTROL ACETATE 400 MG/10 ML UDC PO SCH (16:15)
[2019-06-15] MEDS: ZOLPIDEM TARTRATE 5MG TABLET PO PRN (23:51)
[2019-06-16] VITALS: BP 92/62
[2019-06-16] MEDS: IPRATROPIUM/ALBUTEROL 0.5-3(2.5)MG/3ML NEB HHN SCH ×6 (00:35→21:15)
[2019-06-16 04:00] VITALS: BP 101/78
[2019-06-16] MEDS: MEROPENEM 1,000 MG in SODIUM CHLORIDE 0.9% 100 ML IV SCH ×3 (05:44→15:31)
[2019-06-16 06:28] LABS: HEMATOCRIT. 27.6 % (42.0-52.0); HEMOGLOBIN. 9.2 g/dL (14.0-18.0); MEAN CORPUSCULAR HEMOGLOBIN 25.3 pg (28.0-32.0); MEAN CORPUSCULAR VOLUME 75.5 fL (80.0-94.0); MEAN PLATELET VOLUME 10.2 fl (7.4-10.4); PLATELET 223 x1000/uL (130-400); RED BLOOD CELL COUNT 3.66 mill/uL (4.7-6.1); RED CELL DISTRIBUTION WIDTH 24.7 % (11.6-14.6)
[2019-06-16] MEDS: BLOOD SUGAR DIAGNOSTIC STRIP TEST SCH ×4 (06:45→21:17)
[2019-06-16] MEDS: HYDROCODONE/ACETAMINOPHEN 5/325MG TABLET PO PRN (07:01)
[2019-06-16] MEDS: INSULIN LISPRO 100 UNITS/ML SUBCUT SCH ×4 (07:04→21:00)
[2019-06-16] MEDS: SODIUM CHLORIDE 0.9% INJ 3ML FLUSH IVF SCH ×3 (07:06→21:18)
[2019-06-16] MEDS: SODIUM CHLORIDE 0.9% 1,000 ML IV SCH (07:10)
[2019-06-16 07:19] LABS: CHLORIDE 111 mEq/L (98-107)
[2019-06-16] MEDS ORDERED: DIGOXIN 500MCG/2ML AMP IV NR (07:40)
[2019-06-16 08:00] VITALS: BP 98/62
[2019-06-16 08:11] LABS: PLATELET ESTIMATE NORMAL
[2019-06-16] MEDS: CHLORHEXIDINE GLUCONATE 0.12% ORAL MOUTHWASH SSP SCH ×4 (09:00→21:00)
[2019-06-16] MEDS ORDERED: POTASSIUM CHLORIDE INJ 40 MEQ in DEXT 5% WATER 250 ML IV NR (09:00)
[2019-06-16] MEDS: FILGRASTIM-TBO 480 MCG/0.8 ML SYRINGE SQ SCH (09:00)
[2019-06-16] MEDS: MEGESTROL ACETATE 400 MG/10 ML UDC PO SCH ×2 (10:17→10:30)
[2019-06-16] MEDS: SOTALOL HCL 80MG TABLET PO SCH ×4 (10:24→21:00)
[2019-06-16] MEDS: THIAMINE HCL 100MG TABLET PO SCH ×2 (10:25→10:31)
[2019-06-16 12:00] VITALS: BP 95/65
[2019-06-16 16:00] VITALS: BP 117/72
[2019-06-16 20:00] VITALS: BP 108/58
[2019-06-17] VITALS: BP 94/67
[2019-06-17] MEDS: SODIUM CHLORIDE 0.9% 1,000 ML IV SCH ×2 (00:03→13:41)
[2019-06-17] MEDS: MEROPENEM 1,000 MG in SODIUM CHLORIDE 0.9% 100 ML IV SCH ×3 (00:03→17:45)
[2019-06-17 04:00] VITALS: BP 110/74
[2019-06-17] MEDS: IPRATROPIUM/ALBUTEROL 0.5-3(2.5)MG/3ML NEB HHN SCH ×6 (04:39→19:59)
[2019-06-17] MEDS: INSULIN LISPRO 100 UNITS/ML SUBCUT SCH ×4 (06:23→21:00)
[2019-06-17] MEDS: SODIUM CHLORIDE 0.9% INJ 3ML FLUSH IVF SCH ×2 (06:23→14:00)
[2019-06-17] MEDS: BLOOD SUGAR DIAGNOSTIC STRIP TEST SCH ×4 (06:23→21:23)
[2019-06-17 07:24] LABS: HEMATOCRIT. 25.5 % (42.0-52.0); HEMOGLOBIN. 8.7 g/dL (14.0-18.0); MEAN CORPUSCULAR HEMOGLOBIN 25.6 pg (28.0-32.0); MEAN CORPUSCULAR VOLUME 74.8 fL (80.0-94.0); MEAN PLATELET VOLUME 9.7 fl (7.4-10.4); PLATELET 270 x1000/uL (130-400); RED BLOOD CELL COUNT 3.41 mill/uL (4.7-6.1); RED CELL DISTRIBUTION WIDTH 25.5 % (11.6-14.6)
[2019-06-17 08:00] VITALS: BP 110/68
[2019-06-17] MEDS: SOTALOL HCL 80MG TABLET PO SCH ×2 (08:48→21:29)
[2019-06-17] MEDS: MEGESTROL ACETATE 400 MG/10 ML UDC PO SCH ×2 (08:48→17:45)
[2019-06-17] MEDS: FILGRASTIM-TBO 480 MCG/0.8 ML SYRINGE SQ SCH (08:50)
[2019-06-17] MEDS: CHLORHEXIDINE GLUCONATE 0.12% ORAL MOUTHWASH SSP SCH ×4 (08:51→21:00)
[2019-06-17 09:27] LABS: CHLORIDE 114 mEq/L (98-107)
[2019-06-17] MEDS ORDERED: KCL 20MEQ/100ML PREMIX 100 ML IV NR (11:00)
[2019-06-17 12:00] VITALS: BP 103/68
[2019-06-17 12:14] LABS: PLATELET ESTIMATE NORMAL
[2019-06-17] MEDS: MORPHINE SULFATE 2 MG/ML CPJ (NOT FOR IM USE) IV PRN (13:44)
[2019-06-17 16:00] VITALS: BP 90/55
[2019-06-17 20:00] VITALS: BP 106/79
[2019-06-18] VITALS: BP 97/67
[2019-06-18] MEDS: SODIUM CHLORIDE 0.9% 1,000 ML IV SCH ×2 (00:15→14:38)
[2019-06-18] MEDS: MEROPENEM 1,000 MG in SODIUM CHLORIDE 0.9% 100 ML IV SCH ×4 (00:44→23:35)
[2019-06-18] MEDS: IPRATROPIUM/ALBUTEROL 0.5-3(2.5)MG/3ML NEB HHN SCH ×6 (01:07→21:10)
[2019-06-18 06:14] LABS: HEMATOCRIT. 27.2 % (42.0-52.0); HEMOGLOBIN. 8.9 g/dL (14.0-18.0); MEAN CORPUSCULAR HEMOGLOBIN 25.2 pg (28.0-32.0); MEAN CORPUSCULAR VOLUME 76.6 fL (80.0-94.0); MEAN PLATELET VOLUME 9.7 fl (7.4-10.4); PLATELET 357 x1000/uL (130-400); RED BLOOD CELL COUNT 3.55 mill/uL (4.7-6.1); RED CELL DISTRIBUTION WIDTH 25.1 % (11.6-14.6)
[2019-06-18 06:23] VITALS: BP 98/68
[2019-06-18] MEDS: BLOOD SUGAR DIAGNOSTIC STRIP TEST SCH ×4 (06:35→20:33)
[2019-06-18] MEDS: INSULIN LISPRO 100 UNITS/ML SUBCUT SCH ×4 (06:35→20:35)
[2019-06-18 06:53] LABS: CHLORIDE 114 mEq/L (98-107)
[2019-06-18 08:00] VITALS: BP 104/73
[2019-06-18] MEDS: MEGESTROL ACETATE 400 MG/10 ML UDC PO SCH ×2 (09:18→17:42)
[2019-06-18] MEDS: THIAMINE HCL 100MG TABLET PO SCH (09:19)
[2019-06-18] MEDS: SOTALOL HCL 80MG TABLET PO SCH ×2 (09:19→20:36)
[2019-06-18] MEDS ORDERED: KCL 20MEQ/100ML PREMIX 100 ML IV SCH (10:00)
[2019-06-18] MEDS: MORPHINE SULFATE 2 MG/ML CPJ (NOT FOR IM USE) IV PRN ×3 (11:16→20:37)
[2019-06-18 12:00] VITALS: BP 101/69
[2019-06-18] MEDS: CHLORHEXIDINE GLUCONATE 0.12% MOUTHWASH UDC SSP SCH ×3 (12:38→21:00)
[2019-06-18 16:00] VITALS: BP 108/87
[2019-06-18 20:00] VITALS: BP 96/63
[2019-06-18] MEDS ORDERED: FILGRASTIM-TBO 480 MCG/0.8 ML SYRINGE SQ SCH (21:00)
[2019-06-19] VITALS (7 sets, daily range): BP systolic 90–100; BP diastolic 58–63
[2019-06-19] MEDS: MORPHINE SULFATE 2 MG/ML CPJ (NOT FOR IM USE) IV PRN ×5 (01:15→20:53)
[2019-06-19] MEDS: SODIUM CHLORIDE 0.9% 1,000 ML IV SCH ×2 (03:30→17:01)
[2019-06-19] MEDS: IPRATROPIUM/ALBUTEROL 0.5-3(2.5)MG/3ML NEB HHN SCH ×6 (04:00→20:00)
[2019-06-19 06:45] LABS: BASOPHILS % 0.4 % (0.0-2.0); HEMATOCRIT. 27.1 % (42.0-52.0); LYMPHOCYTES % 17.2 % (20.0-50.0); MEAN CORPUSCULAR HEMOGLOBIN 25.3 pg (28.0-32.0); MEAN CORPUSCULAR VOLUME 76.1 fL (80.0-94.0); MEAN PLATELET VOLUME 9.6 fl (7.4-10.4); MONOCYTES % 7.2 % (2.0-8.0); NEUTROPHILS % 75.2 % (40.0-76.0); PLATELET 366 x1000/uL (130-400); RED BLOOD CELL COUNT 3.56 mill/uL (4.7-6.1); RED CELL DISTRIBUTION WIDTH 25.8 % (11.6-14.6)
[2019-06-19] MEDS: BLOOD SUGAR DIAGNOSTIC STRIP TEST SCH ×3 (06:45→16:27)
[2019-06-19 06:59] LABS: CHLORIDE 114 mEq/L (98-107)
[2019-06-19] MEDS: INSULIN LISPRO 100 UNITS/ML SUBCUT SCH ×3 (07:15→16:27)
[2019-06-19 08:05] LABS: PLATELET ESTIMATE NORMAL
[2019-06-19] MEDS: MEROPENEM 1,000 MG in SODIUM CHLORIDE 0.9% 100 ML IV SCH ×2 (08:56→17:01)
[2019-06-19] MEDS: SOTALOL HCL 80MG TABLET PO SCH (08:57)
[2019-06-19] MEDS: THIAMINE HCL 100MG TABLET PO SCH (08:57)
[2019-06-19] MEDS: MEGESTROL ACETATE 400 MG/10 ML UDC PO SCH ×2 (08:57→17:01)
[2019-06-19] MEDS: CHLORHEXIDINE GLUCONATE 0.12% MOUTHWASH UDC SSP SCH ×3 (09:52→17:01)
[2019-06-19] MEDS ORDERED: KCL 20MEQ/100ML PREMIX 100 ML IV SCH (10:00)
== END 2019-06-19 21:48 | disposition home or self-care (01) | DRG 871 ==
LOC: ER 11:35 → 6EST 14:41 → EDBEDREQTM 14:43 → EDBEDREQSVC 14:43 → ENRESERV 16:04 → 3WST 06-09 11:28 → 5WST 06-14 02:02
PROVIDERS: ADMIT Internal Medicine; ATTEND Internal Medicine
DX: A41.9 Sepsis, unspecified organism (principal); J96.91 Respiratory failure, unspecified with hypoxia; C85.90 Non-Hodgkin lymphoma, unspecified, unspecified site; I48.92 Unspecified atrial flutter; N39.0 Urinary tract infection, site not specified; I42.9 Cardiomyopathy, unspecified; D61.818 Other pancytopenia; G89.3 Neoplasm related pain (acute) (chronic); E11.9 Type 2 diabetes mellitus without complications; D63.0 Anemia in neoplastic disease; K80.20 Calculus of gallbladder without cholecystitis without obstruction; I95.9 Hypotension, unspecified; I35.0 Nonrheumatic aortic (valve) stenosis; I10 Essential (primary) hypertension; D50.9 Iron deficiency anemia, unspecified; R59.0 Localized enlarged lymph nodes; I48.0 Paroxysmal atrial fibrillation; E78.5 Hyperlipidemia, unspecified; B96.5 Pseudomonas (aeruginosa) (mallei) (pseudomallei) as the cause of diseases classified elsewhere; E87.6 Hypokalemia; Z91.81 History of falling; Z85.048 Personal history of other malignant neoplasm of rectum, rectosigmoid junction, and anus; Z79.899 Other long term (current) drug therapy; Z92.21 Personal history of antineoplastic chemotherapy
CPT/HCPCS: 36415; 36600; 71045; 80048; 80053; 80305; 81003; 82270; 82375; 82805; 82962; 83735; 85014; 85018; 85025; 85027; 86850; 86900; 86920; 87077; 87186; 93005; 94640; 97162; 99285; J0696; J1160; J1442; J1650; J1815; J2060; J2185; J2270; J3480; J7030; J7050; J7060; P9016; P9021

== ENCOUNTER 2019-08-10 10:23 | Inpatient (IN) | payer BC, OTHER ==
[~2019-08-10] VITALS: Ht 185.4 cm; Wt 128.8 kg
[~2019-08-10 10:23] MED LIST changes: +DIGO-26
[2019-08-10] MEDS ORDERED: SODIUM CHLORIDE 0.9% 1000ML BAG (SEPSIS BOLUS) IV ONE (10:45)
[2019-08-10 11:19] LABS: BASOPHILS % 0.7 % (0.0-2.0); EOSINOPHILS % 1.8 % (0.0-5.0); HEMATOCRIT. 30.7 % (42.0-52.0); HEMOGLOBIN. 9.7 g/dL (14.0-18.0); LYMPHOCYTES % 17.1 % (20.0-50.0); MEAN CORPUSCULAR HEMOGLOBIN 21.8 pg (28.0-32.0); MONOCYTES % 4.4 % (2.0-8.0); PLATELET 326 x1000/uL (130-400); RED BLOOD CELL COUNT 4.45 mill/uL (4.7-6.1); RED CELL DISTRIBUTION WIDTH 20.6 % (11.6-14.6)
[2019-08-10 11:21] LABS: CHLORIDE 107 mEq/L (98-107)
[2019-08-10 11:43] LABS: CLARITY URINE TURBID (CLEAR); COLOR URINE DARK YELLOW (YELLOW); KETONES URINE NEGATIVE (NEGATIVE); LEUKOCYTE ESTERASE URINE 3+ (NEGATIVE); NITRITE URINE POSITIVE (NEGATIVE); OCCULT BLOOD URINE 2+ (NEGATIVE); PH URINE 5.5 (4.5-8.0); PROTEIN URINE 1+ (NEGATIVE)
[2019-08-10 11:59] LABS: PLATELET ESTIMATE NORMAL
[2019-08-10] MEDS ORDERED: METRONIDAZOLE 500 MG PREMIX 100 ML IV ONE (12:00)
[2019-08-10] MEDS ORDERED: LEVOFLOXACIN 500MG PREMIX 100 ML IV ONE (12:00)
[2019-08-10] MEDS ORDERED: FENTANYL CITRATE/PF 50MCG/ML 2ML VIAL IV ONE (12:15)
[2019-08-10] MEDS ORDERED: ONDANSETRON HCL 4MG/2ML INJ IV ONE (12:15)
[2019-08-10] MEDS ORDERED: ACETAMINOPHEN 325MG TABLET PO ONE (12:15)
[2019-08-10] MEDS ORDERED: LORAZEPAM 2MG/ML CPJ IV NR (16:30)
[2019-08-10] MEDS ORDERED: HALOPERIDOL LACTATE 5MG/ML VIAL IM ONE ×2 (17:30→17:45)
[2019-08-10] MEDS ORDERED: CLONIDINE 0.1MG TABLET PO PRN (20:30)
[2019-08-10] MEDS ORDERED: ACETAMINOPHEN 325MG TABLET PO PRN (20:30)
[2019-08-10] MEDS ORDERED: DEXTROSE 50% WATER 50ML SYRINGE IV PRN (20:30)
[2019-08-10] MEDS ORDERED: ENOXAPARIN 40MG/0.4ML SYR SUBCUT SCH (20:30)
[2019-08-10] MEDS ORDERED: ZOLPIDEM TARTRATE 5MG TABLET PO PRN (21:30)
[2019-08-10 23:48] VITALS: BP 168/114
[2019-08-11] VITALS (37 sets, daily range): BP systolic 79–168; BP diastolic 50–114
[2019-08-11] MEDS ORDERED: POTASSIUM CHLORIDE 20MEQ/PACKET PO SCH (00:01)
[2019-08-11] MEDS ORDERED: MAGNESIUM 1 G PREMIX 100 ML IV SCH (01:00)
[2019-08-11] MEDS: SODIUM CHLORIDE 0.9% 1,000 ML IV SCH ×3 (01:05→23:16)
[2019-08-11] MEDS: MEROPENEM 1,000 MG in SODIUM CHLORIDE 0.9% 100 ML IV SCH ×2 (02:12→08:50)
[2019-08-11] MEDS: BLOOD SUGAR DIAGNOSTIC STRIP TEST SCH ×4 (07:30→21:22)
[2019-08-11] MEDS: INSULIN LISPRO 100 UNITS/ML SUBCUT SCH ×4 (08:00→21:00)
[2019-08-11] MEDS: ENOXAPARIN 30MG/0.3ML SYR SUBCUT SCH ×2 (08:51→21:22)
[2019-08-11] MEDS ORDERED: SODIUM CHLORIDE 0.9% 500 ML IV NR (12:45)
[2019-08-11] MEDS: ACETAMINOPHEN 325MG TABLET PO PRN ×2 (13:09→14:45)
[2019-08-11] MEDS: NOREPINEPHRINE 4 MG in DEXT 5% WATER 246 ML IV PRN (15:20)
[2019-08-11] MEDS: HYDROCODONE/APAP 7.5/325MG 1 TAB TABLET PO PRN ×2 (16:29→23:16)
[2019-08-11] MEDS ORDERED: MEROPENEM 1,000 MG in SODIUM CHLORIDE 0.9% 100 ML IV SCH (18:00)
[2019-08-11] MEDS ORDERED: MEROPENEM-0.9% SODIUM CHLORIDE 50 ML IV SCH (18:00)
[2019-08-11] MEDS: MEROPENEM-0.9% SODIUM CHLORIDE 50 ML IV SCH (19:23)
[2019-08-12] VITALS (104 sets, daily range): BP systolic 82–116; BP diastolic 52–81
[2019-08-12] MEDS: NOREPINEPHRINE 4 MG in DEXT 5% WATER 246 ML IV PRN ×2 (01:11→15:32)
[2019-08-12] MEDS: MEROPENEM-0.9% SODIUM CHLORIDE 50 ML IV SCH ×3 (03:53→20:05)
[2019-08-12] MEDS: HYDROCODONE/APAP 7.5/325MG 1 TAB TABLET PO PRN ×3 (05:17→16:37)
[2019-08-12 07:18] LABS: BASOPHILS % 0.6 % (0.0-2.0); EOSINOPHILS % 2.7 % (0.0-5.0); HEMOGLOBIN. 9.3 g/dL (14.0-18.0); LYMPHOCYTES % 17.5 % (20.0-50.0); MEAN CORPUSCULAR HEMOGLOBIN 21.3 pg (28.0-32.0); MEAN CORPUSCULAR VOLUME 68.6 fL (80.0-94.0); MEAN PLATELET VOLUME 9.9 fl (7.4-10.4); MONOCYTES % 7.9 % (2.0-8.0); NEUTROPHILS % 71.3 % (40.0-76.0); PLATELET 396 x1000/uL (130-400); RED BLOOD CELL COUNT 4.37 mill/uL (4.7-6.1); RED CELL DISTRIBUTION WIDTH 20.6 % (11.6-14.6)
[2019-08-12] MEDS: INSULIN LISPRO 100 UNITS/ML SUBCUT SCH ×4 (08:00→21:00)
[2019-08-12] MEDS: BLOOD SUGAR DIAGNOSTIC STRIP TEST SCH ×4 (08:10→21:00)
[2019-08-12] MEDS: ENOXAPARIN 30MG/0.3ML SYR SUBCUT SCH ×2 (08:46→22:57)
[2019-08-12] MEDS: SODIUM CHLORIDE 0.9% 1,000 ML IV SCH (11:01)
[2019-08-12 19:37] LABS: CHLORIDE 109 mEq/L (98-107)
[2019-08-12 19:46] LABS: T4 FREE 1.32 ng/dL (0.76-1.46)
[2019-08-12] MEDS: HYDROCORTISONE SOD SUCCINATE 100 MG/2 ML VIAL IV SCH (20:04)
[2019-08-12] MEDS: DIPHENHYDRAMINE 50MG/ML VIAL IV PRN (20:52)
[2019-08-12] MEDS: LORAZEPAM 2MG/ML CPJ IV PRN (21:05)
[2019-08-13] VITALS (95 sets, daily range): BP systolic 80–138; BP diastolic 55–89
[2019-08-13] MEDS: SODIUM CHLORIDE 0.9% 1,000 ML IV SCH ×3 (01:14→20:58)
[2019-08-13] MEDS: LORAZEPAM 2MG/ML CPJ IV PRN ×4 (01:32→21:47)
[2019-08-13] MEDS: DIPHENHYDRAMINE 50MG/ML VIAL IV PRN ×3 (01:33→21:47)
[2019-08-13] MEDS: NOREPINEPHRINE 4 MG in DEXT 5% WATER 246 ML IV PRN ×2 (02:38→14:20)
[2019-08-13] MEDS: HYDROCORTISONE SOD SUCCINATE 100 MG/2 ML VIAL IV SCH ×3 (04:14→20:58)
[2019-08-13] MEDS: MEROPENEM-0.9% SODIUM CHLORIDE 50 ML IV SCH ×3 (04:14→20:58)
[2019-08-13] MEDS: BLOOD SUGAR DIAGNOSTIC STRIP TEST SCH ×4 (06:50→21:00)
[2019-08-13] MEDS: INSULIN LISPRO 100 UNITS/ML SUBCUT SCH ×4 (07:09→21:00)
[2019-08-13] MEDS: HYDROCODONE/APAP 7.5/325MG 1 TAB TABLET PO PRN ×3 (08:03→23:29)
[2019-08-13] MEDS: ENOXAPARIN 30MG/0.3ML SYR SUBCUT SCH ×2 (08:04→20:58)
[2019-08-14] VITALS (96 sets, daily range): BP systolic 70–155; BP diastolic 25–102
[2019-08-14] MEDS: NOREPINEPHRINE 16 MG in DEXT 5% WATER 234 ML IV PRN (01:37)
[2019-08-14] MEDS: MEROPENEM-0.9% SODIUM CHLORIDE 50 ML IV SCH ×3 (03:32→20:37)
[2019-08-14] MEDS: HYDROCORTISONE SOD SUCCINATE 100 MG/2 ML VIAL IV SCH ×3 (03:32→17:15)
[2019-08-14] MEDS: SODIUM CHLORIDE 0.9% 1,000 ML IV SCH ×2 (07:39→17:15)
[2019-08-14] MEDS: INSULIN LISPRO 100 UNITS/ML SUBCUT SCH ×4 (07:48→21:00)
[2019-08-14] MEDS: BLOOD SUGAR DIAGNOSTIC STRIP TEST SCH ×4 (07:49→21:00)
[2019-08-14] MEDS: ENOXAPARIN 30MG/0.3ML SYR SUBCUT SCH ×2 (09:18→20:39)
[2019-08-14] MEDS: HYDROCODONE/APAP 7.5/325MG 1 TAB TABLET PO PRN ×4 (09:29→18:19)
[2019-08-14] MEDS: LORAZEPAM 2MG/ML CPJ IV PRN ×2 (14:42→20:37)
[2019-08-14] MEDS: HALOPERIDOL LACTATE 5MG/ML VIAL IM PRN (17:35)
[2019-08-14] MEDS: QUETIAPINE FUMARATE 50MG TABLET PO SCH (20:37)
[2019-08-15] VITALS (93 sets, daily range): BP systolic 80–148; BP diastolic 47–95
[2019-08-15] MEDS: NOREPINEPHRINE 16 MG in DEXT 5% WATER 234 ML IV PRN ×2 (00:12→21:28)
[2019-08-15] MEDS: HYDROCODONE/APAP 7.5/325MG 1 TAB TABLET PO PRN ×3 (00:46→19:59)
[2019-08-15] MEDS: MEROPENEM-0.9% SODIUM CHLORIDE 50 ML IV SCH ×3 (03:50→20:04)
[2019-08-15] MEDS: SODIUM CHLORIDE 0.9% 1,000 ML IV SCH ×3 (03:58→23:51)
[2019-08-15] MEDS: HYDROCORTISONE SOD SUCCINATE 100 MG/2 ML VIAL IV SCH ×2 (05:35→17:57)
[2019-08-15] MEDS: BLOOD SUGAR DIAGNOSTIC STRIP TEST SCH ×4 (05:35→20:26)
[2019-08-15] MEDS: INSULIN LISPRO 100 UNITS/ML SUBCUT SCH ×4 (05:50→20:26)
[2019-08-15] MEDS: ENOXAPARIN 30MG/0.3ML SYR SUBCUT SCH ×2 (08:16→20:05)
[2019-08-15] MEDS: QUETIAPINE FUMARATE 50MG TABLET PO SCH ×2 (08:16→20:05)
[2019-08-15] MEDS: HALOPERIDOL LACTATE 5MG/ML VIAL IM PRN (12:48)
[2019-08-15] MEDS: FLUDROCORTISONE ACETATE 0.1MG TABLET PO SCH (12:48)
[2019-08-15] MEDS ORDERED: LIDOCAINE HCL/EPINEPHRINE 1%-EPI 1:100,000 20 ML VIAL INFIL NR (15:00)
[2019-08-15] MEDS: INSULIN GLARGINE UD 100 UNITS/ML SYR SUBCUT SCH (15:03)
[2019-08-15] MEDS: LORAZEPAM 2MG/ML CPJ IV PRN (15:03)
[2019-08-15] MEDS ORDERED: MEROPENEM 1,000 MG in SODIUM CHLORIDE 0.9% 100 ML IV SCH (22:00)
[2019-08-16] VITALS (98 sets, daily range): BP systolic 69–140; BP diastolic 51–101
[2019-08-16] MEDS: DIPHENHYDRAMINE 50MG/ML VIAL IV PRN (00:16)
[2019-08-16] MEDS: HYDROCODONE/APAP 7.5/325MG 1 TAB TABLET PO PRN ×2 (02:10→15:15)
[2019-08-16] MEDS: HYDROCORTISONE SOD SUCCINATE 100 MG/2 ML VIAL IV SCH ×2 (05:27→18:31)
[2019-08-16] MEDS: MEROPENEM-0.9% SODIUM CHLORIDE 50 ML IV SCH ×3 (05:27→22:23)
[2019-08-16] MEDS: HALOPERIDOL LACTATE 5MG/ML VIAL IM PRN (06:06)
[2019-08-16] MEDS: BLOOD SUGAR DIAGNOSTIC STRIP TEST SCH ×4 (07:30→21:00)
[2019-08-16 07:50] LABS: BASOPHILS % 0.1 % (0.0-2.0); EOSINOPHILS % 0.1 % (0.0-5.0); HEMATOCRIT. 28.1 % (42.0-52.0); LYMPHOCYTES % 26.5 % (20.0-50.0); MEAN CORPUSCULAR HEMOGLOBIN 21.4 pg (28.0-32.0); MEAN CORPUSCULAR VOLUME 66.5 fL (80.0-94.0); MEAN PLATELET VOLUME 9.4 fl (7.4-10.4); MONOCYTES % 5.1 % (2.0-8.0); NEUTROPHILS % 68.2 % (40.0-76.0); PLATELET 371 x1000/uL (130-400); RED BLOOD CELL COUNT 4.23 mill/uL (4.7-6.1); RED CELL DISTRIBUTION WIDTH 19.8 % (11.6-14.6)
[2019-08-16 08:05] LABS: CHLORIDE 114 mEq/L (98-107)
[2019-08-16 08:21] LABS: PHOSPHORUS 1.4 mg/dL (2.5-4.9)
[2019-08-16] MEDS: ASCORBIC ACID 500 MG TABLET PO SCH (09:13)
[2019-08-16] MEDS: FLUDROCORTISONE ACETATE 0.1MG TABLET PO SCH (09:13)
[2019-08-16] MEDS: ZINC SULFATE 220 MG ( 50 ) CAPSULE PO SCH (09:13)
[2019-08-16] MEDS: SODIUM CHLORIDE 0.9% 1,000 ML IV SCH ×2 (09:14→22:23)
[2019-08-16] MEDS: ENOXAPARIN 30MG/0.3ML SYR SUBCUT SCH ×2 (09:14→22:24)
[2019-08-16] MEDS: INSULIN LISPRO 100 UNITS/ML SUBCUT SCH ×4 (09:15→21:00)
[2019-08-16] MEDS: QUETIAPINE FUMARATE 50MG TABLET PO SCH ×2 (09:18→22:24)
[2019-08-16] MEDS: INSULIN GLARGINE UD 100 UNITS/ML SYR SUBCUT SCH (11:07)
[2019-08-16] MEDS ORDERED: MAGNESIUM 2 G PREMIX 50 ML IV ONE (15:30)
[2019-08-16] MEDS ORDERED: POTASSIUM PHOS,M-BASIC-D-BASIC 20 MMOL in DEXT 5% WATER 243.3333 ML IV ONE (18:00)
[2019-08-16] MEDS: HYDROCODONE/ACETAMINOPHEN 5/325MG TABLET PO PRN (20:02)
[2019-08-17] VITALS (96 sets, daily range): BP systolic 81–132; BP diastolic 41–99
[2019-08-17] MEDS: HYDROCODONE/ACETAMINOPHEN 5/325MG TABLET PO PRN ×4 (01:52→19:07)
[2019-08-17] MEDS: ONDANSETRON HCL 4MG/2ML INJ IV PRN (04:08)
[2019-08-17] MEDS: DIPHENHYDRAMINE 50MG/ML VIAL IV PRN (04:08)
[2019-08-17] MEDS: MEROPENEM-0.9% SODIUM CHLORIDE 50 ML IV SCH ×2 (04:21→13:00)
[2019-08-17] MEDS: SODIUM CHLORIDE 0.9% 1,000 ML IV SCH ×2 (05:54→15:01)
[2019-08-17] MEDS: HYDROCORTISONE SOD SUCCINATE 100 MG/2 ML VIAL IV SCH ×2 (05:59→17:05)
[2019-08-17 06:17] LABS: CHLORIDE 114 mEq/L (98-107)
[2019-08-17 06:23] LABS: PHOSPHORUS 2.5 mg/dL (2.5-4.9)
[2019-08-17] MEDS: BLOOD SUGAR DIAGNOSTIC STRIP TEST SCH ×4 (07:29→21:19)
[2019-08-17] MEDS: ASCORBIC ACID 500 MG TABLET PO SCH (08:43)
[2019-08-17] MEDS: ENOXAPARIN 30MG/0.3ML SYR SUBCUT SCH ×2 (08:43→20:38)
[2019-08-17] MEDS: FLUDROCORTISONE ACETATE 0.1MG TABLET PO SCH (08:44)
[2019-08-17] MEDS: QUETIAPINE FUMARATE 50MG TABLET PO SCH ×2 (08:44→20:38)
[2019-08-17] MEDS: ZINC SULFATE 220 MG ( 50 ) CAPSULE PO SCH (08:44)
[2019-08-17] MEDS: INSULIN LISPRO 100 UNITS/ML SUBCUT SCH ×4 (08:45→21:20)
[2019-08-17] MEDS: INSULIN GLARGINE UD 100 UNITS/ML SYR SUBCUT SCH (10:14)
[2019-08-17] MEDS: NOREPINEPHRINE 16 MG in DEXT 5% WATER 234 ML IV PRN (15:00)
[2019-08-17] MEDS ORDERED: MEROPENEM 1,000 MG in SODIUM CHLORIDE 0.9% 100 ML IV SCH (16:00)
[2019-08-17] MEDS: MIDODRINE HCL 5MG TABLET PO SCH (16:58)
[2019-08-17] MEDS: SODIUM HYPOCHLORITE 0.125% 473ML SOLUTION TOP SCH (17:00)
[2019-08-18] VITALS (69 sets, daily range): BP systolic 69–151; BP diastolic 36–95
[2019-08-18] MEDS: MEROPENEM 1,000 MG in SODIUM CHLORIDE 0.9% 100 ML IV SCH ×3 (02:00→17:09)
[2019-08-18] MEDS: SODIUM CHLORIDE 0.9% 1,000 ML IV SCH ×3 (02:00→12:27)
[2019-08-18] MEDS: HYDROCORTISONE SOD SUCCINATE 100 MG/2 ML VIAL IV SCH ×3 (05:31→17:09)
[2019-08-18] MEDS: BLOOD SUGAR DIAGNOSTIC STRIP TEST SCH ×4 (07:40→21:02)
[2019-08-18] MEDS: INSULIN LISPRO 100 UNITS/ML SUBCUT SCH ×4 (07:44→21:23)
[2019-08-18] MEDS: QUETIAPINE FUMARATE 50MG TABLET PO SCH ×2 (08:25→20:59)
[2019-08-18] MEDS: MIDODRINE HCL 5MG TABLET PO SCH ×3 (08:26→17:09)
[2019-08-18] MEDS: ASCORBIC ACID 500 MG TABLET PO SCH (08:27)
[2019-08-18] MEDS: FLUDROCORTISONE ACETATE 0.1MG TABLET PO SCH (08:27)
[2019-08-18] MEDS: ENOXAPARIN 30MG/0.3ML SYR SUBCUT SCH ×2 (08:27→21:00)
[2019-08-18] MEDS: ZINC SULFATE 220 MG ( 50 ) CAPSULE PO SCH (08:27)
[2019-08-18] MEDS: HYDROCODONE/ACETAMINOPHEN 5/325MG TABLET PO PRN ×3 (09:06→14:48)
[2019-08-18] MEDS: SODIUM HYPOCHLORITE 0.125% 473ML SOLUTION TOP SCH ×2 (09:07→17:09)
[2019-08-18] MEDS: INSULIN GLARGINE UD 100 UNITS/ML SYR SUBCUT SCH (10:35)
[2019-08-18] MEDS: DIPHENHYDRAMINE 50MG/ML VIAL IV PRN (21:00)
[2019-08-19] VITALS (77 sets, daily range): BP systolic 71–147; BP diastolic 19–98
[2019-08-19] MEDS: MEROPENEM 1,000 MG in SODIUM CHLORIDE 0.9% 100 ML IV SCH ×3 (02:45→20:30)
[2019-08-19] MEDS: NOREPINEPHRINE 16 MG in DEXT 5% WATER 234 ML IV PRN (06:00)
[2019-08-19] MEDS: SODIUM CHLORIDE 0.9% 1,000 ML IV SCH ×2 (08:00→18:17)
[2019-08-19] MEDS: BLOOD SUGAR DIAGNOSTIC STRIP TEST SCH ×3 (08:30→20:19)
[2019-08-19] MEDS: INSULIN LISPRO 100 UNITS/ML SUBCUT SCH ×3 (08:30→20:36)
[2019-08-19] MEDS: FLUDROCORTISONE ACETATE 0.1MG TABLET PO SCH (09:37)
[2019-08-19] MEDS: HYDROCORTISONE SOD SUCCINATE 100 MG/2 ML VIAL IV SCH ×2 (09:37→18:15)
[2019-08-19] MEDS: ZINC SULFATE 220 MG ( 50 ) CAPSULE PO SCH (09:37)
[2019-08-19] MEDS: QUETIAPINE FUMARATE 50MG TABLET PO SCH ×2 (09:39→20:30)
[2019-08-19] MEDS: MIDODRINE HCL 5MG TABLET PO SCH ×3 (09:39→18:16)
[2019-08-19] MEDS: ASCORBIC ACID 500 MG TABLET PO SCH (09:40)
[2019-08-19] MEDS: ENOXAPARIN 30MG/0.3ML SYR SUBCUT SCH ×2 (09:40→20:31)
[2019-08-19] MEDS: SODIUM HYPOCHLORITE 0.125% 473ML SOLUTION TOP SCH ×2 (09:41→18:18)
[2019-08-19] MEDS: HALOPERIDOL LACTATE 5MG/ML VIAL IM PRN (09:42)
[2019-08-19] MEDS: HYDROCODONE/ACETAMINOPHEN 5/325MG TABLET PO PRN (11:15)
[2019-08-19] MEDS: INSULIN GLARGINE UD 100 UNITS/ML SYR SUBCUT SCH (11:57)
[2019-08-20] VITALS (92 sets, daily range): BP systolic 70–156; BP diastolic 39–101
[2019-08-20] MEDS: SODIUM CHLORIDE 0.9% 1,000 ML IV SCH ×2 (04:44→17:38)
[2019-08-20] MEDS: MEROPENEM 1,000 MG in SODIUM CHLORIDE 0.9% 100 ML IV SCH ×3 (04:44→20:52)
[2019-08-20 06:34] LABS: HEMATOCRIT. 30.2 % (42.0-52.0); HEMOGLOBIN. 9.6 g/dL (14.0-18.0); MEAN CORPUSCULAR HEMOGLOBIN 21.4 pg (28.0-32.0); MEAN CORPUSCULAR VOLUME 67.1 fL (80.0-94.0); PLATELET 378 x1000/uL (130-400); RED CELL DISTRIBUTION WIDTH 20.9 % (11.6-14.6)
[2019-08-20] MEDS: INSULIN LISPRO 100 UNITS/ML SUBCUT SCH ×4 (06:34→20:35)
[2019-08-20] MEDS: BLOOD SUGAR DIAGNOSTIC STRIP TEST SCH ×4 (06:34→20:35)
[2019-08-20 06:50] LABS: CHLORIDE 115 mEq/L (98-107)
[2019-08-20 06:59] LABS: PHOSPHORUS 2.2 mg/dL (2.5-4.9)
[2019-08-20] MEDS: MIDODRINE HCL 5MG TABLET PO SCH ×3 (08:14→17:38)
[2019-08-20] MEDS: QUETIAPINE FUMARATE 50MG TABLET PO SCH ×2 (08:14→20:35)
[2019-08-20] MEDS: ZINC SULFATE 220 MG ( 50 ) CAPSULE PO SCH (08:14)
[2019-08-20] MEDS: FLUDROCORTISONE ACETATE 0.1MG TABLET PO SCH (08:15)
[2019-08-20] MEDS: HYDROCORTISONE SOD SUCCINATE 100 MG/2 ML VIAL IV SCH ×2 (08:15→17:34)
[2019-08-20] MEDS: ASCORBIC ACID 500 MG TABLET PO SCH (08:15)
[2019-08-20] MEDS: ENOXAPARIN 30MG/0.3ML SYR SUBCUT SCH ×2 (08:16→20:35)
[2019-08-20] MEDS: SODIUM HYPOCHLORITE 0.125% 473ML SOLUTION TOP SCH ×2 (08:18→17:40)
[2019-08-20] MEDS: HYDROCODONE/ACETAMINOPHEN 5/325MG TABLET PO PRN ×2 (08:33→13:43)
[2019-08-20] MEDS ORDERED: POTASSIUM CHLORIDE 20MEQ TABLET SR PO SCH (09:00)
[2019-08-20] MEDS: INSULIN GLARGINE UD 100 UNITS/ML SYR SUBCUT SCH (10:36)
[2019-08-20] MEDS ORDERED: POTASSIUM PHOS,M-BASIC-D-BASIC 15 MMOL in DEXT 5% WATER 245 ML IV SCH (11:00)
[2019-08-20] MEDS ORDERED: MAGNESIUM 1 G PREMIX 100 ML IV SCH (11:00)
[2019-08-20 11:11] LABS: ATYPICAL LYMPHOCYTES 1
[2019-08-20 11:13] LABS: PLATELET ESTIMATE NORMAL
[2019-08-20] MEDS: LOPERAMIDE HCL 2MG CAPSULE PO PRN (17:40)
[2019-08-20] MEDS: ONDANSETRON HCL 4MG/2ML INJ IV PRN (20:35)
[2019-08-20] MEDS: HALOPERIDOL LACTATE 5MG/ML VIAL IM PRN (20:36)
[2019-08-20] MEDS: DIPHENHYDRAMINE 50MG/ML VIAL IV PRN (20:36)
[2019-08-21] VITALS (79 sets, daily range): BP systolic 75–151; BP diastolic 41–110
[2019-08-21] MEDS: LOPERAMIDE HCL 2MG CAPSULE PO PRN ×2 (04:16→17:09)
[2019-08-21] MEDS: DIPHENHYDRAMINE 50MG/ML VIAL IV PRN ×2 (04:17→13:51)
[2019-08-21] MEDS: ONDANSETRON HCL 4MG/2ML INJ IV PRN (04:17)
[2019-08-21] MEDS: HALOPERIDOL LACTATE 5MG/ML VIAL IM PRN ×2 (04:18→13:51)
[2019-08-21] MEDS: HYDROCODONE/ACETAMINOPHEN 5/325MG TABLET PO PRN ×4 (04:20→21:45)
[2019-08-21] MEDS: MEROPENEM 1,000 MG in SODIUM CHLORIDE 0.9% 100 ML IV SCH ×3 (06:43→21:45)
[2019-08-21] MEDS: HYDROCORTISONE SOD SUCCINATE 100 MG/2 ML VIAL IV SCH ×2 (06:43→17:08)
[2019-08-21] MEDS: BLOOD SUGAR DIAGNOSTIC STRIP TEST SCH ×4 (06:48→21:00)
[2019-08-21] MEDS: INSULIN LISPRO 100 UNITS/ML SUBCUT SCH ×4 (08:00→21:00)
[2019-08-21] MEDS: ZINC SULFATE 220 MG ( 50 ) CAPSULE PO SCH (08:27)
[2019-08-21] MEDS: ENOXAPARIN 30MG/0.3ML SYR SUBCUT SCH ×2 (08:27→21:44)
[2019-08-21] MEDS: ASCORBIC ACID 500 MG TABLET PO SCH (08:27)
[2019-08-21] MEDS: FLUDROCORTISONE ACETATE 0.1MG TABLET PO SCH (08:27)
[2019-08-21] MEDS: QUETIAPINE FUMARATE 50MG TABLET PO SCH ×2 (08:29→21:45)
[2019-08-21] MEDS: SODIUM HYPOCHLORITE 0.125% 473ML SOLUTION TOP SCH ×2 (08:30→17:10)
[2019-08-21] MEDS: MIDODRINE HCL 5MG TABLET PO SCH ×3 (08:30→17:08)
[2019-08-21] MEDS: INSULIN GLARGINE UD 100 UNITS/ML SYR SUBCUT SCH (09:53)
[2019-08-21] MEDS: SODIUM CHLORIDE 0.9% 1,000 ML IV SCH ×2 (10:00)
[2019-08-21] MEDS: NOREPINEPHRINE 16 MG in DEXT 5% WATER 234 ML IV PRN (14:46)
[2019-08-22] VITALS (89 sets, daily range): BP systolic 62–137; BP diastolic 24–83
[2019-08-22] MEDS: SODIUM CHLORIDE 0.9% 1,000 ML IV SCH ×3 (03:33→16:22)
[2019-08-22] MEDS: HYDROCORTISONE SOD SUCCINATE 100 MG/2 ML VIAL IV SCH ×2 (05:34→18:47)
[2019-08-22] MEDS: HYDROCODONE/ACETAMINOPHEN 5/325MG TABLET PO PRN ×2 (05:34→09:13)
[2019-08-22] MEDS: MEROPENEM 1,000 MG in SODIUM CHLORIDE 0.9% 100 ML IV SCH ×2 (05:34→14:00)
[2019-08-22] MEDS: BLOOD SUGAR DIAGNOSTIC STRIP TEST SCH ×4 (05:35→21:15)
[2019-08-22] MEDS: INSULIN LISPRO 100 UNITS/ML SUBCUT SCH ×4 (08:00→21:00)
[2019-08-22] MEDS: SODIUM HYPOCHLORITE 0.125% 473ML SOLUTION TOP SCH ×2 (09:00→16:22)
[2019-08-22] MEDS: ENOXAPARIN 30MG/0.3ML SYR SUBCUT SCH ×2 (09:09→21:02)
[2019-08-22] MEDS: MIDODRINE HCL 5MG TABLET PO SCH ×3 (09:10→16:22)
[2019-08-22] MEDS: QUETIAPINE FUMARATE 50MG TABLET PO SCH ×2 (09:10→20:58)
[2019-08-22] MEDS: FLUDROCORTISONE ACETATE 0.1MG TABLET PO SCH (09:11)
[2019-08-22] MEDS: ASCORBIC ACID 500 MG TABLET PO SCH (09:11)
[2019-08-22] MEDS: ZINC SULFATE 220 MG ( 50 ) CAPSULE PO SCH (09:11)
[2019-08-22] MEDS: INSULIN GLARGINE UD 100 UNITS/ML SYR SUBCUT SCH (10:00)
[2019-08-22] MEDS ORDERED: MIDODRINE HCL 5MG TABLET PO SCH (17:45)
[2019-08-22] MEDS: MEROPENEM-0.9% SODIUM CHLORIDE 50 ML IV SCH (21:21)
[2019-08-23] VITALS (93 sets, daily range): BP systolic 76–160; BP diastolic 44–105
[2019-08-23] MEDS: SODIUM CHLORIDE 0.9% 1,000 ML IV SCH ×2 (02:19→12:19)
[2019-08-23] MEDS: MEROPENEM-0.9% SODIUM CHLORIDE 50 ML IV SCH ×3 (06:20→21:39)
[2019-08-23] MEDS: BLOOD SUGAR DIAGNOSTIC STRIP TEST SCH ×4 (06:21→21:00)
[2019-08-23] MEDS: INSULIN LISPRO 100 UNITS/ML SUBCUT SCH ×4 (06:21→21:00)
[2019-08-23] MEDS: HYDROCORTISONE SOD SUCCINATE 100 MG/2 ML VIAL IV SCH ×2 (06:30→17:37)
[2019-08-23] MEDS: QUETIAPINE FUMARATE 50MG TABLET PO SCH ×2 (09:13→21:38)
[2019-08-23] MEDS: MIDODRINE HCL 5MG TABLET PO SCH ×3 (09:14→17:38)
[2019-08-23] MEDS: ZINC SULFATE 220 MG ( 50 ) CAPSULE PO SCH (09:14)
[2019-08-23] MEDS: ENOXAPARIN 30MG/0.3ML SYR SUBCUT SCH ×2 (09:14→21:39)
[2019-08-23] MEDS: FLUDROCORTISONE ACETATE 0.1MG TABLET PO SCH (09:14)
[2019-08-23] MEDS: ASCORBIC ACID 500 MG TABLET PO SCH (09:14)
[2019-08-23] MEDS: SODIUM HYPOCHLORITE 0.125% 473ML SOLUTION TOP SCH ×2 (09:15→17:39)
[2019-08-23] MEDS: HYDROCODONE/ACETAMINOPHEN 5/325MG TABLET PO PRN (09:36)
[2019-08-24] VITALS (90 sets, daily range): BP systolic 70–197; BP diastolic 36–170
[2019-08-24] MEDS: HYDROCORTISONE SOD SUCCINATE 100 MG/2 ML VIAL IV SCH ×2 (06:29→18:45)
[2019-08-24] MEDS: MEROPENEM-0.9% SODIUM CHLORIDE 50 ML IV SCH ×3 (06:29→21:38)
[2019-08-24] MEDS: BLOOD SUGAR DIAGNOSTIC STRIP TEST SCH ×4 (06:30→20:43)
[2019-08-24] MEDS: INSULIN LISPRO 100 UNITS/ML SUBCUT SCH ×4 (06:30→20:43)
[2019-08-24] MEDS: SODIUM HYPOCHLORITE 0.125% 473ML SOLUTION TOP SCH ×2 (09:00→17:00)
[2019-08-24] MEDS: QUETIAPINE FUMARATE 50MG TABLET PO SCH ×2 (09:00→20:42)
[2019-08-24] MEDS: ASCORBIC ACID 500 MG TABLET PO SCH (09:00)
[2019-08-24] MEDS: ENOXAPARIN 30MG/0.3ML SYR SUBCUT SCH ×2 (09:00→20:43)
[2019-08-24] MEDS: ZINC SULFATE 220 MG ( 50 ) CAPSULE PO SCH (09:00)
[2019-08-24] MEDS: MIDODRINE HCL 5MG TABLET PO SCH ×3 (09:00→18:45)
[2019-08-24] MEDS: FLUDROCORTISONE ACETATE 0.1MG TABLET PO SCH (09:00)
[2019-08-24 13:00] LABS: EOSINOPHILS % 0.3 % (0.0-5.0); HEMATOCRIT. 28.8 % (42.0-52.0); HEMOGLOBIN. 9.3 g/dL (14.0-18.0); LYMPHOCYTES % 16.8 % (20.0-50.0); MEAN CORPUSCULAR HEMOGLOBIN 21.5 pg (28.0-32.0); MEAN CORPUSCULAR VOLUME 66.8 fL (80.0-94.0); MEAN PLATELET VOLUME 10.1 fl (7.4-10.4); MONOCYTES % 4.1 % (2.0-8.0); NEUTROPHILS % 78.8 % (40.0-76.0); PLATELET 262 x1000/uL (130-400); RED BLOOD CELL COUNT 4.32 mill/uL (4.7-6.1); RED CELL DISTRIBUTION WIDTH 21.9 % (11.6-14.6)
[2019-08-24 13:08] LABS: CHLORIDE 115 mEq/L (98-107)
[2019-08-24 13:11] LABS: PHOSPHORUS 1.7 mg/dL (2.5-4.9)
[2019-08-24] MEDS ORDERED: POTASSIUM CHLORIDE 20MEQ TABLET SR PO SCH (13:30)
[2019-08-24] MEDS ORDERED: POTASSIUM PHOS,M-BASIC-D-BASIC 30 MMOL in DEXT 5% WATER 500 ML IV SCH (15:00)
[2019-08-24] MEDS ORDERED: MAGNESIUM 1 G PREMIX 100 ML IV SCH (15:00)
[2019-08-24] MEDS ORDERED: MEROPENEM-0.9% SODIUM CHLORIDE 50 ML IV SCH (17:00)
[2019-08-24] MEDS ORDERED: POTASSIUM CHLORIDE INJ 40 MEQ in DEXT 5% WATER 250 ML IV NR (18:00)
[2019-08-24] MEDS: HYDROCODONE/ACETAMINOPHEN 5/325MG TABLET PO PRN (18:44)
[2019-08-25] VITALS (11 sets, daily range): BP systolic 95–136; BP diastolic 45–92
[2019-08-25] MEDS: HYDROCORTISONE SOD SUCCINATE 100 MG/2 ML VIAL IV SCH ×2 (05:13→17:22)
[2019-08-25] MEDS: MEROPENEM-0.9% SODIUM CHLORIDE 50 ML IV SCH ×3 (05:13→22:00)
[2019-08-25] MEDS: BLOOD SUGAR DIAGNOSTIC STRIP TEST SCH ×5 (07:30→21:00)
[2019-08-25 07:37] LABS: CHLORIDE 113 mEq/L (98-107)
[2019-08-25 07:44] LABS: PHOSPHORUS 2.4 mg/dL (2.5-4.9)
[2019-08-25] MEDS: INSULIN LISPRO 100 UNITS/ML SUBCUT SCH ×4 (08:00→22:22)
[2019-08-25] MEDS: ASCORBIC ACID 500 MG TABLET PO SCH (08:57)
[2019-08-25] MEDS: FLUDROCORTISONE ACETATE 0.1MG TABLET PO SCH (08:57)
[2019-08-25] MEDS: QUETIAPINE FUMARATE 50MG TABLET PO SCH ×2 (08:57→22:16)
[2019-08-25] MEDS: ZINC SULFATE 220 MG ( 50 ) CAPSULE PO SCH (08:57)
[2019-08-25] MEDS: ENOXAPARIN 30MG/0.3ML SYR SUBCUT SCH ×2 (08:58→22:16)
[2019-08-25] MEDS: SODIUM HYPOCHLORITE 0.125% 473ML SOLUTION TOP SCH ×2 (09:00→16:22)
[2019-08-25] MEDS: MIDODRINE HCL 5MG TABLET PO SCH ×3 (09:00→17:22)
[2019-08-25] MEDS ORDERED: POTASSIUM PHOS,M-BASIC-D-BASIC 15 MMOL in DEXT 5% WATER 245 ML IV SCH (10:00)
[2019-08-25] MEDS ORDERED: POTASSIUM CHLORIDE INJ 40 MEQ in DEXT 5% WATER 250 ML IV SCH (14:00)
[2019-08-26] VITALS (12 sets, daily range): BP systolic 95–129; BP diastolic 47–78
[2019-08-26] MEDS: MEROPENEM-0.9% SODIUM CHLORIDE 50 ML IV SCH ×3 (06:00→22:04)
[2019-08-26] MEDS: INSULIN LISPRO 100 UNITS/ML SUBCUT SCH ×4 (06:26→20:42)
[2019-08-26] MEDS: BLOOD SUGAR DIAGNOSTIC STRIP TEST SCH ×4 (06:26→20:42)
[2019-08-26] MEDS: HYDROCORTISONE SOD SUCCINATE 100 MG/2 ML VIAL IV SCH ×2 (06:34→17:46)
[2019-08-26] MEDS: ENOXAPARIN 30MG/0.3ML SYR SUBCUT SCH ×2 (08:39→20:42)
[2019-08-26] MEDS: ASCORBIC ACID 500 MG TABLET PO SCH (08:40)
[2019-08-26] MEDS: ZINC SULFATE 220 MG ( 50 ) CAPSULE PO SCH (08:40)
[2019-08-26] MEDS: FLUDROCORTISONE ACETATE 0.1MG TABLET PO SCH (08:40)
[2019-08-26] MEDS: QUETIAPINE FUMARATE 50MG TABLET PO SCH ×2 (08:40→20:40)
[2019-08-26] MEDS: MIDODRINE HCL 5MG TABLET PO SCH ×3 (08:40→19:41)
[2019-08-26] MEDS: SODIUM HYPOCHLORITE 0.125% 473ML SOLUTION TOP SCH ×2 (08:41→17:00)
[2019-08-26 09:03] LABS: CHLORIDE 112 mEq/L (98-107)
[2019-08-26 09:25] LABS: HEMOGLOBIN 9.3 g/dL (14.0-18.0); MEAN CORPUSCULAR HEMOGLOBIN 21.4 pg (28.0-32.0); MEAN CORPUSCULAR VOLUME 67.1 fL (80.0-94.0); RED BLOOD CELL COUNT 4.32 mill/uL (4.7-6.1); RED CELL DISTRIBUTION WIDTH 21.8 % (11.6-14.6)
[2019-08-26] MEDS ORDERED: POTASSIUM CHLORIDE 20MEQ TABLET SR PO NR (10:30)
[2019-08-26] MEDS ORDERED: MAGNESIUM 1 G PREMIX 100 ML IV SCH (12:00)
[2019-08-26] MEDS: ACETAMINOPHEN 325MG TABLET PO PRN (12:57)
[2019-08-26] MEDS ORDERED: ALPRAZOLAM 0.5 MG TABLET PO ONE (19:15)
[2019-08-26] MEDS: HYDROCODONE/ACETAMINOPHEN 5/325MG TABLET PO PRN (20:05)
[2019-08-26 20:45] LABS: PHOSPHORUS 1.9 mg/dL (2.5-4.9)
[2019-08-27] VITALS (8 sets, daily range): BP systolic 98–117; BP diastolic 61–80
[2019-08-27] MEDS: MEROPENEM-0.9% SODIUM CHLORIDE 50 ML IV SCH ×2 (05:56→14:16)
[2019-08-27] MEDS: HYDROCORTISONE 10MG TABLET PO SCH ×3 (05:57→17:34)
[2019-08-27] MEDS ORDERED: HYDROCORTISONE SOD SUCCINATE 100 MG/2 ML VIAL IV SCH (06:30)
[2019-08-27] MEDS: BLOOD SUGAR DIAGNOSTIC STRIP TEST SCH ×4 (06:32→21:00)
[2019-08-27] MEDS ORDERED: HYDROCORTISONE SOD SUCCINATE 100 MG/2 ML VIAL IV NR (06:45)
[2019-08-27] MEDS: INSULIN LISPRO 100 UNITS/ML SUBCUT SCH ×4 (07:13→21:00)
[2019-08-27] MEDS: ASCORBIC ACID 500 MG TABLET PO SCH (08:44)
[2019-08-27] MEDS: ZINC SULFATE 220 MG ( 50 ) CAPSULE PO SCH (08:44)
[2019-08-27] MEDS: MIDODRINE HCL 5MG TABLET PO SCH ×3 (08:45→16:46)
[2019-08-27] MEDS: FLUDROCORTISONE ACETATE 0.1MG TABLET PO SCH (08:45)
[2019-08-27] MEDS: QUETIAPINE FUMARATE 50MG TABLET PO SCH ×3 (08:45→22:06)
[2019-08-27] MEDS: ENOXAPARIN 30MG/0.3ML SYR SUBCUT SCH ×2 (08:46→22:06)
[2019-08-27] MEDS ORDERED: ALPRAZOLAM 0.5 MG TABLET PO SCH (09:00)
[2019-08-27] MEDS: SODIUM HYPOCHLORITE 0.125% 473ML SOLUTION TOP SCH ×2 (11:20→17:36)
[2019-08-27] MEDS ORDERED: POTASSIUM PHOS,M-BASIC-D-BASIC 20 MMOL in DEXT 5% WATER 243.3333 ML IV SCH (14:00)
[2019-08-27] MEDS: ALPRAZOLAM 0.5 MG TABLET PO SCH (16:47)
[2019-08-27] MEDS: ACETAMINOPHEN 325MG TABLET PO PRN (17:29)
[2019-08-28] VITALS: BP 101/70
[2019-08-28] MEDS: MEROPENEM-0.9% SODIUM CHLORIDE 50 ML IV SCH ×4 (01:57→21:07)
[2019-08-28 04:00] VITALS: BP 107/58
[2019-08-28] MEDS: HYDROCORTISONE 10MG TABLET PO SCH ×2 (05:28→18:06)
[2019-08-28] MEDS: BLOOD SUGAR DIAGNOSTIC STRIP TEST SCH ×4 (07:20→21:32)
[2019-08-28] MEDS: INSULIN LISPRO 100 UNITS/ML SUBCUT SCH ×4 (07:50→21:31)
[2019-08-28 08:00] VITALS: BP_SYST 107; BP_SYST 92; BP_DIAS 55; BP_DIAS 73
[2019-08-28 08:19] LABS: CHLORIDE 110 mEq/L (98-107)
[2019-08-28 08:27] LABS: PHOSPHORUS 2.5 mg/dL (2.5-4.9)
[2019-08-28] MEDS: ZINC SULFATE 220 MG ( 50 ) CAPSULE PO SCH (08:51)
[2019-08-28] MEDS: ENOXAPARIN 30MG/0.3ML SYR SUBCUT SCH ×2 (08:51→21:07)
[2019-08-28] MEDS: ALPRAZOLAM 0.5 MG TABLET PO SCH ×2 (08:51→17:51)
[2019-08-28] MEDS: ASCORBIC ACID 500 MG TABLET PO SCH (08:51)
[2019-08-28] MEDS: FLUDROCORTISONE ACETATE 0.1MG TABLET PO SCH (08:51)
[2019-08-28] MEDS: MIDODRINE HCL 5MG TABLET PO SCH ×3 (08:52→17:52)
[2019-08-28] MEDS: QUETIAPINE FUMARATE 50MG TABLET PO SCH ×2 (08:52→21:07)
[2019-08-28] MEDS: SODIUM HYPOCHLORITE 0.125% 473ML SOLUTION TOP SCH ×2 (08:56→18:07)
[2019-08-28] MEDS ORDERED: KETOROLAC 30MG/ML VIAL IV NR (09:00)
[2019-08-28] MEDS ORDERED: MAGNESIUM 1 G PREMIX 100 ML IV SCH (10:00)
[2019-08-28 12:00] VITALS: BP 92/55
[2019-08-28] MEDS: POTASSIUM CHLORIDE 20MEQ TABLET SR PO SCH (14:50)
[2019-08-28] MEDS: METOLAZONE 10MG TABLET PO SCH (14:50)
[2019-08-28 16:00] VITALS: BP 98/69
[2019-08-28 20:00] VITALS: BP 101/70
[2019-08-29] VITALS: BP 114/76
[2019-08-29 04:00] VITALS: BP 134/90
[2019-08-29] MEDS: MEROPENEM-0.9% SODIUM CHLORIDE 50 ML IV SCH ×3 (05:40→21:32)
[2019-08-29] MEDS: HYDROCORTISONE 10MG TABLET PO SCH ×2 (05:40→17:05)
[2019-08-29] MEDS: ACETAMINOPHEN 325MG TABLET PO PRN (06:09)
[2019-08-29] MEDS: INSULIN LISPRO 100 UNITS/ML SUBCUT SCH ×4 (07:50→21:00)
[2019-08-29 08:00] VITALS: BP 124/73
[2019-08-29] MEDS: BLOOD SUGAR DIAGNOSTIC STRIP TEST SCH ×4 (08:11→21:33)
[2019-08-29] MEDS: ALPRAZOLAM 0.5 MG TABLET PO SCH ×2 (09:23→16:41)
[2019-08-29] MEDS: METOLAZONE 10MG TABLET PO SCH (09:23)
[2019-08-29] MEDS: ZINC SULFATE 220 MG ( 50 ) CAPSULE PO SCH (09:23)
[2019-08-29] MEDS: ASCORBIC ACID 500 MG TABLET PO SCH (09:23)
[2019-08-29] MEDS: POTASSIUM CHLORIDE 20MEQ TABLET SR PO SCH (09:23)
[2019-08-29] MEDS: ENOXAPARIN 30MG/0.3ML SYR SUBCUT SCH ×2 (09:24→21:33)
[2019-08-29] MEDS: FLUDROCORTISONE ACETATE 0.1MG TABLET PO SCH (09:24)
[2019-08-29] MEDS: QUETIAPINE FUMARATE 50MG TABLET PO SCH ×2 (09:24→21:33)
[2019-08-29] MEDS: MIDODRINE HCL 5MG TABLET PO SCH ×3 (09:26→16:40)
[2019-08-29] MEDS: SODIUM HYPOCHLORITE 0.125% 473ML SOLUTION TOP SCH ×2 (09:44→16:42)
[2019-08-29] MEDS ORDERED: LIDOCAINE HCL/EPINEPHRINE 1%-EPI 1:100,000 20 ML VIAL INFIL ONE (10:30)
[2019-08-29 12:00] VITALS: BP 94/67
[2019-08-29 16:27] VITALS: BP 99/52
[2019-08-29 20:43] VITALS: BP 119/85
[2019-08-29] MEDS: NYSTATIN POWDER 15GM TOP SCH (21:35)
[2019-08-30] VITALS: BP 107/73
[2019-08-30 04:00] VITALS: BP 106/66
[2019-08-30] MEDS: MEROPENEM-0.9% SODIUM CHLORIDE 50 ML IV SCH ×3 (06:14→22:22)
[2019-08-30] MEDS: HYDROCORTISONE 10MG TABLET PO SCH ×2 (06:15→17:57)
[2019-08-30] MEDS: BLOOD SUGAR DIAGNOSTIC STRIP TEST SCH ×4 (06:15→21:40)
[2019-08-30] MEDS: INSULIN LISPRO 100 UNITS/ML SUBCUT SCH ×4 (07:12→21:00)
[2019-08-30 08:00] VITALS: BP 117/80
[2019-08-30] MEDS: POTASSIUM CHLORIDE 20MEQ TABLET SR PO SCH (08:54)
[2019-08-30] MEDS: MIDODRINE HCL 5MG TABLET PO SCH ×3 (08:55→17:58)
[2019-08-30] MEDS: ZINC SULFATE 220 MG ( 50 ) CAPSULE PO SCH (08:55)
[2019-08-30] MEDS: FLUDROCORTISONE ACETATE 0.1MG TABLET PO SCH (08:56)
[2019-08-30] MEDS: ENOXAPARIN 30MG/0.3ML SYR SUBCUT SCH ×2 (08:56→21:41)
[2019-08-30] MEDS: QUETIAPINE FUMARATE 50MG TABLET PO SCH ×2 (08:56→21:40)
[2019-08-30] MEDS: METOLAZONE 10MG TABLET PO SCH (08:56)
[2019-08-30] MEDS: ALPRAZOLAM 0.5 MG TABLET PO SCH ×2 (08:56→17:56)
[2019-08-30] MEDS: NYSTATIN POWDER 15GM TOP SCH ×2 (08:57→21:42)
[2019-08-30] MEDS: ASCORBIC ACID 500 MG TABLET PO SCH (09:00)
[2019-08-30] MEDS: SODIUM HYPOCHLORITE 0.125% 473ML SOLUTION TOP SCH ×2 (09:00→18:08)
[2019-08-30 11:52] VITALS: BP 107/66
[2019-08-30 16:00] VITALS: BP 111/83
[2019-08-30 20:45] VITALS: BP 129/89
[2019-08-31] VITALS: BP 119/82
[2019-08-31 04:00] VITALS: BP 122/84
[2019-08-31] MEDS: MEROPENEM-0.9% SODIUM CHLORIDE 50 ML IV SCH ×2 (05:18→13:04)
[2019-08-31 06:15] LABS: HEMATOCRIT. 28.5 % (42.0-52.0); HEMOGLOBIN. 9.1 g/dL (14.0-18.0); MEAN CORPUSCULAR HEMOGLOBIN 21.5 pg (28.0-32.0); MEAN CORPUSCULAR VOLUME 67.4 fL (80.0-94.0); RED BLOOD CELL COUNT 4.22 mill/uL (4.7-6.1); RED CELL DISTRIBUTION WIDTH 22.2 % (11.6-14.6)
[2019-08-31 06:27] LABS: CHLORIDE 106 mEq/L (98-107)
[2019-08-31] MEDS: BLOOD SUGAR DIAGNOSTIC STRIP TEST SCH ×4 (06:37→20:40)
[2019-08-31] MEDS: HYDROCORTISONE 10MG TABLET PO SCH ×2 (06:43→18:31)
[2019-08-31] MEDS: INSULIN LISPRO 100 UNITS/ML SUBCUT SCH ×4 (07:46→20:40)
[2019-08-31 08:00] VITALS: BP 96/45
[2019-08-31] MEDS: ASCORBIC ACID 500 MG TABLET PO SCH (08:57)
[2019-08-31] MEDS: FLUDROCORTISONE ACETATE 0.1MG TABLET PO SCH (08:57)
[2019-08-31] MEDS: ALPRAZOLAM 0.5 MG TABLET PO SCH ×2 (08:58→18:31)
[2019-08-31] MEDS: QUETIAPINE FUMARATE 50MG TABLET PO SCH ×2 (08:58→20:39)
[2019-08-31] MEDS: METOLAZONE 10MG TABLET PO SCH (08:58)
[2019-08-31] MEDS: MIDODRINE HCL 5MG TABLET PO SCH ×3 (08:58→19:24)
[2019-08-31] MEDS: POTASSIUM CHLORIDE 20MEQ TABLET SR PO SCH (08:58)
[2019-08-31] MEDS: ENOXAPARIN 30MG/0.3ML SYR SUBCUT SCH ×2 (08:59→20:39)
[2019-08-31] MEDS: NYSTATIN POWDER 15GM TOP SCH ×2 (08:59→20:41)
[2019-08-31] MEDS: ZINC SULFATE 220 MG ( 50 ) CAPSULE PO SCH (08:59)
[2019-08-31] MEDS: SODIUM HYPOCHLORITE 0.125% 473ML SOLUTION TOP SCH ×2 (09:00→18:32)
[2019-08-31] MEDS: ACETAMINOPHEN 325MG TABLET PO PRN (09:48)
[2019-08-31] MEDS ORDERED: POTASSIUM CHLORIDE 20MEQ TABLET SR PO SCH (10:15)
[2019-08-31 11:44] VITALS: BP 111/59
[2019-08-31] MEDS ORDERED: MAGNESIUM 1 G PREMIX 100 ML IV SCH (13:00)
[2019-08-31 13:35] LABS: PLATELET ESTIMATE NORMAL
[2019-08-31 13:36] LABS: PLATELET 170 x1000/uL (130-400)
[2019-08-31 17:01] VITALS: BP_SYST 111; BP_SYST 81; BP_DIAS 52; BP_DIAS 71
[2019-08-31] MEDS: MEROPENEM 1,000 MG in SODIUM CHLORIDE 0.9% 100 ML IV SCH (18:29)
[2019-08-31 20:00] VITALS: BP 116/79
[2019-08-31] MEDS: HYDROCODONE/ACETAMINOPHEN 5/325MG TABLET PO PRN (20:40)
[2019-09-01] VITALS: BP 118/77
[2019-09-01] MEDS: MEROPENEM 1,000 MG in SODIUM CHLORIDE 0.9% 100 ML IV SCH ×3 (01:03→17:00)
[2019-09-01 04:00] VITALS: BP 116/72
[2019-09-01] MEDS: HYDROCORTISONE 10MG TABLET PO SCH ×2 (06:34→18:43)
[2019-09-01] MEDS: BLOOD SUGAR DIAGNOSTIC STRIP TEST SCH ×4 (06:40→20:42)
[2019-09-01] MEDS: INSULIN LISPRO 100 UNITS/ML SUBCUT SCH ×4 (07:50→20:42)
[2019-09-01 08:00] VITALS: BP 105/61
[2019-09-01] MEDS: ALPRAZOLAM 0.5 MG TABLET PO SCH (09:00)
[2019-09-01] MEDS: NYSTATIN POWDER 15GM TOP SCH ×2 (09:00→20:42)
[2019-09-01] MEDS: SODIUM HYPOCHLORITE 0.125% 473ML SOLUTION TOP SCH ×2 (09:00→17:00)
[2019-09-01] MEDS: POTASSIUM CHLORIDE 20MEQ TABLET SR PO SCH (09:59)
[2019-09-01] MEDS: ENOXAPARIN 30MG/0.3ML SYR SUBCUT SCH ×2 (09:59→20:38)
[2019-09-01] MEDS: METOLAZONE 10MG TABLET PO SCH (10:00)
[2019-09-01] MEDS: ZINC SULFATE 220 MG ( 50 ) CAPSULE PO SCH (10:00)
[2019-09-01] MEDS: ASCORBIC ACID 500 MG TABLET PO SCH (10:00)
[2019-09-01] MEDS: QUETIAPINE FUMARATE 50MG TABLET PO SCH ×2 (10:00→20:41)
[2019-09-01] MEDS: FLUDROCORTISONE ACETATE 0.1MG TABLET PO SCH (10:00)
[2019-09-01] MEDS: MIDODRINE HCL 5MG TABLET PO SCH ×3 (10:11→18:43)
[2019-09-01 12:00] VITALS: BP 110/76
[2019-09-01 16:00] VITALS: BP 99/66
[2019-09-01 20:00] VITALS: BP 122/88
[2019-09-01] MEDS: HYDROCODONE/ACETAMINOPHEN 5/325MG TABLET PO PRN (20:47)
[2019-09-02] VITALS: BP 129/81
[2019-09-02] MEDS: MEROPENEM 1,000 MG in SODIUM CHLORIDE 0.9% 100 ML IV SCH ×3 (00:11→18:01)
[2019-09-02 04:00] VITALS: BP 97/64
[2019-09-02] MEDS: HYDROCORTISONE 10MG TABLET PO SCH ×2 (05:29→18:01)
[2019-09-02] MEDS: HYDROCODONE/ACETAMINOPHEN 5/325MG TABLET PO PRN ×3 (05:37→20:50)
[2019-09-02] MEDS: BLOOD SUGAR DIAGNOSTIC STRIP TEST SCH ×4 (06:42→20:28)
[2019-09-02] MEDS: INSULIN LISPRO 100 UNITS/ML SUBCUT SCH ×4 (07:50→20:50)
[2019-09-02 08:00] VITALS: BP 113/78
[2019-09-02] MEDS: POTASSIUM CHLORIDE 20MEQ TABLET SR PO SCH (08:19)
[2019-09-02] MEDS: ENOXAPARIN 30MG/0.3ML SYR SUBCUT SCH ×2 (08:19→20:49)
[2019-09-02] MEDS: ZINC SULFATE 220 MG ( 50 ) CAPSULE PO SCH (08:19)
[2019-09-02] MEDS: ASCORBIC ACID 500 MG TABLET PO SCH (08:20)
[2019-09-02] MEDS: MIDODRINE HCL 5MG TABLET PO SCH ×3 (08:20→18:01)
[2019-09-02] MEDS: METOLAZONE 10MG TABLET PO SCH (08:20)
[2019-09-02] MEDS: QUETIAPINE FUMARATE 50MG TABLET PO SCH ×2 (08:21→20:49)
[2019-09-02] MEDS: FLUDROCORTISONE ACETATE 0.1MG TABLET PO SCH (08:21)
[2019-09-02] MEDS: NYSTATIN POWDER 15GM TOP SCH ×2 (08:22→20:49)
[2019-09-02] MEDS: SODIUM HYPOCHLORITE 0.125% 473ML SOLUTION TOP SCH ×2 (08:22→17:00)
[2019-09-02 12:00] VITALS: BP 106/73
[2019-09-02 16:00] VITALS: BP 112/68
[2019-09-02 20:00] VITALS: BP 138/88
[2019-09-03] VITALS: BP 113/72
[2019-09-03] MEDS: MEROPENEM 1,000 MG in SODIUM CHLORIDE 0.9% 100 ML IV SCH ×4 (00:20→23:42)
[2019-09-03 04:00] VITALS: BP 118/86
[2019-09-03] MEDS: HYDROCORTISONE 10MG TABLET PO SCH ×2 (05:55→17:35)
[2019-09-03] MEDS: HYDROCODONE/ACETAMINOPHEN 5/325MG TABLET PO PRN ×3 (06:03→20:42)
[2019-09-03] MEDS: BLOOD SUGAR DIAGNOSTIC STRIP TEST SCH ×4 (06:33→20:42)
[2019-09-03 08:00] VITALS: BP 117/59
[2019-09-03] MEDS: ENOXAPARIN 30MG/0.3ML SYR SUBCUT SCH ×2 (10:02→20:42)
[2019-09-03] MEDS: MIDODRINE HCL 5MG TABLET PO SCH ×3 (10:03→16:11)
[2019-09-03] MEDS: FLUDROCORTISONE ACETATE 0.1MG TABLET PO SCH (10:04)
[2019-09-03] MEDS: ASCORBIC ACID 500 MG TABLET PO SCH (10:04)
[2019-09-03] MEDS: QUETIAPINE FUMARATE 50MG TABLET PO SCH ×2 (10:04→20:41)
[2019-09-03] MEDS: POTASSIUM CHLORIDE 20MEQ TABLET SR PO SCH (10:05)
[2019-09-03] MEDS: METOLAZONE 10MG TABLET PO SCH (10:05)
[2019-09-03] MEDS: ZINC SULFATE 220 MG ( 50 ) CAPSULE PO SCH (10:05)
[2019-09-03] MEDS: INSULIN LISPRO 100 UNITS/ML SUBCUT SCH ×4 (10:07→20:41)
[2019-09-03] MEDS: SODIUM HYPOCHLORITE 0.125% 473ML SOLUTION TOP SCH ×2 (10:11→16:12)
[2019-09-03] MEDS: NYSTATIN POWDER 15GM TOP SCH ×2 (10:11→20:43)
[2019-09-03 12:00] VITALS: BP 107/73
[2019-09-03 16:00] VITALS: BP 107/68
[2019-09-03 20:00] VITALS: BP 107/71
[2019-09-04] VITALS: BP 108/61
[2019-09-04 04:00] VITALS: BP 100/54
[2019-09-04] MEDS: HYDROCORTISONE 10MG TABLET PO SCH ×2 (05:52→18:00)
[2019-09-04] MEDS: BLOOD SUGAR DIAGNOSTIC STRIP TEST SCH ×4 (06:20→21:09)
[2019-09-04] MEDS: INSULIN LISPRO 100 UNITS/ML SUBCUT SCH ×4 (07:50→21:00)
[2019-09-04 08:00] VITALS: BP 98/75
[2019-09-04] MEDS: ENOXAPARIN 30MG/0.3ML SYR SUBCUT SCH ×2 (09:16→21:58)
[2019-09-04] MEDS: MEROPENEM 1,000 MG in SODIUM CHLORIDE 0.9% 100 ML IV SCH ×2 (09:16→17:00)
[2019-09-04] MEDS: METOLAZONE 10MG TABLET PO SCH (09:16)
[2019-09-04] MEDS: POTASSIUM CHLORIDE 20MEQ TABLET SR PO SCH (09:17)
[2019-09-04] MEDS: QUETIAPINE FUMARATE 50MG TABLET PO SCH ×2 (09:18→21:57)
[2019-09-04] MEDS: MIDODRINE HCL 5MG TABLET PO SCH ×2 (09:18→17:58)
[2019-09-04] MEDS: ZINC SULFATE 220 MG ( 50 ) CAPSULE PO SCH (09:18)
[2019-09-04] MEDS: ASCORBIC ACID 500 MG TABLET PO SCH (09:19)
[2019-09-04] MEDS: FLUDROCORTISONE ACETATE 0.1MG TABLET PO SCH (09:21)
[2019-09-04] MEDS: SODIUM HYPOCHLORITE 0.125% 473ML SOLUTION TOP SCH ×2 (09:28→17:00)
[2019-09-04] MEDS: NYSTATIN POWDER 15GM TOP SCH ×2 (09:28→21:58)
[2019-09-04 12:00] VITALS: BP 106/65
[2019-09-04 14:47] VITALS: BP 99/70
[2019-09-04] MEDS: HYDROCODONE/ACETAMINOPHEN 5/325MG TABLET PO PRN (18:10)
[2019-09-04 20:00] VITALS: BP 133/84
[2019-09-05] VITALS: BP 109/81
[2019-09-05] MEDS: MEROPENEM 1,000 MG in SODIUM CHLORIDE 0.9% 100 ML IV SCH ×3 (01:24→17:00)
[2019-09-05 04:00] VITALS: BP 97/56
[2019-09-05] MEDS: BLOOD SUGAR DIAGNOSTIC STRIP TEST SCH ×4 (06:44→21:00)
[2019-09-05] MEDS: INSULIN LISPRO 100 UNITS/ML SUBCUT SCH ×4 (06:54→21:00)
[2019-09-05 08:00] VITALS: BP 85/53
[2019-09-05] MEDS: MIDODRINE HCL 5MG TABLET PO SCH ×3 (08:41→17:00)
[2019-09-05] MEDS: ASCORBIC ACID 500 MG TABLET PO SCH (08:41)
[2019-09-05] MEDS: ENOXAPARIN 30MG/0.3ML SYR SUBCUT SCH ×2 (08:42→21:38)
[2019-09-05] MEDS: POTASSIUM CHLORIDE 20MEQ TABLET SR PO SCH (08:42)
[2019-09-05] MEDS: QUETIAPINE FUMARATE 50MG TABLET PO SCH ×2 (08:42→21:39)
[2019-09-05] MEDS: FLUDROCORTISONE ACETATE 0.1MG TABLET PO SCH (08:42)
[2019-09-05] MEDS: ZINC SULFATE 220 MG ( 50 ) CAPSULE PO SCH (08:42)
[2019-09-05] MEDS: SODIUM HYPOCHLORITE 0.125% 473ML SOLUTION TOP SCH ×2 (09:00→17:00)
[2019-09-05] MEDS: HYDROCORTISONE 10MG TABLET PO SCH ×2 (09:08→18:00)
[2019-09-05] MEDS: NYSTATIN POWDER 15GM TOP SCH ×2 (09:09→21:46)
[2019-09-05] MEDS: HYDROCODONE/ACETAMINOPHEN 5/325MG TABLET PO PRN (09:09)
[2019-09-05 12:00] VITALS: BP 96/60
[2019-09-05] MEDS: METOLAZONE 10MG TABLET PO SCH (12:27)
[2019-09-05 16:00] VITALS: BP 107/72
[2019-09-05 20:00] VITALS: BP 97/64
[2019-09-05] MEDS: HALOPERIDOL LACTATE 5MG/ML VIAL IM PRN (21:55)
[2019-09-05 23:53] LABS: CHLORIDE 102 mEq/L (98-107)
[2019-09-06] VITALS (8 sets, daily range): BP systolic 99–131; BP diastolic 43–96
[2019-09-06] MEDS ORDERED: POTASSIUM CHLORIDE 20MEQ TABLET SR PO NR (00:15)
[2019-09-06] MEDS ORDERED: MAGNESIUM 4 G PREMIX 100 ML IV NR (01:00)
[2019-09-06] MEDS: MEROPENEM 1,000 MG in SODIUM CHLORIDE 0.9% 100 ML IV SCH ×3 (02:18→17:15)
[2019-09-06] MEDS: BLOOD SUGAR DIAGNOSTIC STRIP TEST SCH ×3 (07:20→21:55)
[2019-09-06 07:22] LABS: CHLORIDE 102 mEq/L (98-107)
[2019-09-06] MEDS: INSULIN LISPRO 100 UNITS/ML SUBCUT SCH ×3 (07:50→21:00)
[2019-09-06] MEDS ORDERED: POTASSIUM CHLORIDE 20MEQ TABLET SR PO SCH ×3 (09:00→11:00)
[2019-09-06] MEDS: MIDODRINE HCL 5MG TABLET PO SCH ×3 (09:13→17:16)
[2019-09-06] MEDS: METOLAZONE 10MG TABLET PO SCH (09:13)
[2019-09-06] MEDS: QUETIAPINE FUMARATE 50MG TABLET PO SCH ×2 (09:13→21:56)
[2019-09-06] MEDS: ASCORBIC ACID 500 MG TABLET PO SCH (09:13)
[2019-09-06] MEDS: FLUDROCORTISONE ACETATE 0.1MG TABLET PO SCH (09:13)
[2019-09-06] MEDS: ZINC SULFATE 220 MG ( 50 ) CAPSULE PO SCH (09:13)
[2019-09-06] MEDS: POTASSIUM CHLORIDE 20MEQ TABLET SR PO SCH (09:14)
[2019-09-06] MEDS: ENOXAPARIN 30MG/0.3ML SYR SUBCUT SCH ×2 (09:14→21:57)
[2019-09-06] MEDS: NYSTATIN POWDER 15GM TOP SCH ×2 (09:15→21:56)
[2019-09-06] MEDS: SODIUM HYPOCHLORITE 0.125% 473ML SOLUTION TOP SCH ×2 (10:34→17:16)
[2019-09-06] MEDS: HYDROCORTISONE 10MG TABLET PO SCH ×2 (10:34→17:16)
[2019-09-07] MEDS: MEROPENEM 1,000 MG in SODIUM CHLORIDE 0.9% 100 ML IV SCH ×3 (01:34→17:42)
[2019-09-07 04:45] VITALS: BP 118/74
[2019-09-07 05:57] LABS: CHLORIDE 103 mEq/L (98-107)
[2019-09-07 06:02] LABS: PHOSPHORUS 2.6 mg/dL (2.5-4.9)
[2019-09-07 06:32] LABS: BASOPHILS % 0.4 % (0.0-2.0); EOSINOPHILS % 2.2 % (0.0-5.0); HEMOGLOBIN. 8.4 g/dL (14.0-18.0); LYMPHOCYTES % 36.5 % (20.0-50.0); MEAN CORPUSCULAR HEMOGLOBIN 22.1 pg (28.0-32.0); MEAN CORPUSCULAR VOLUME 68.2 fL (80.0-94.0); MEAN PLATELET VOLUME 10.7 fl (7.4-10.4); MONOCYTES % 6.1 % (2.0-8.0); NEUTROPHILS % 54.8 % (40.0-76.0); PLATELET 268 x1000/uL (130-400); RED BLOOD CELL COUNT 3.81 mill/uL (4.7-6.1); RED CELL DISTRIBUTION WIDTH 24.2 % (11.6-14.6)
[2019-09-07] MEDS: BLOOD SUGAR DIAGNOSTIC STRIP TEST SCH ×4 (06:45→21:21)
[2019-09-07] MEDS: HYDROCORTISONE 10MG TABLET PO SCH ×2 (06:45→17:43)
[2019-09-07] MEDS: INSULIN LISPRO 100 UNITS/ML SUBCUT SCH ×4 (07:28→21:00)
[2019-09-07 08:00] VITALS: BP 111/77
[2019-09-07] MEDS: ENOXAPARIN 30MG/0.3ML SYR SUBCUT SCH ×2 (08:40→21:21)
[2019-09-07] MEDS: POTASSIUM CHLORIDE 20MEQ TABLET SR PO SCH ×4 (08:41→17:42)
[2019-09-07] MEDS: FLUDROCORTISONE ACETATE 0.1MG TABLET PO SCH (08:41)
[2019-09-07] MEDS: MIDODRINE HCL 5MG TABLET PO SCH ×3 (08:41→17:46)
[2019-09-07] MEDS: METOLAZONE 10MG TABLET PO SCH (08:41)
[2019-09-07] MEDS: ASCORBIC ACID 500 MG TABLET PO SCH (08:41)
[2019-09-07] MEDS: NYSTATIN POWDER 15GM TOP SCH ×2 (08:42→21:21)
[2019-09-07] MEDS: ZINC SULFATE 220 MG ( 50 ) CAPSULE PO SCH (08:42)
[2019-09-07] MEDS: QUETIAPINE FUMARATE 50MG TABLET PO SCH ×2 (08:42→21:20)
[2019-09-07] MEDS: SODIUM HYPOCHLORITE 0.125% 473ML SOLUTION TOP SCH ×2 (08:42→17:00)
[2019-09-07] MEDS ORDERED: MAGNESIUM 1 G PREMIX 100 ML IV NR (11:30)
[2019-09-07 12:00] VITALS: BP 110/66
[2019-09-07 16:00] VITALS: BP 128/80
[2019-09-07 20:17] VITALS: BP 121/83
[2019-09-08 00:18] VITALS: BP 121/86
[2019-09-08] MEDS: MEROPENEM 1,000 MG in SODIUM CHLORIDE 0.9% 100 ML IV SCH ×3 (01:48→17:07)
[2019-09-08 04:17] VITALS: BP 128/86
[2019-09-08 06:11] LABS: CHLORIDE 105 mEq/L (98-107)
[2019-09-08] MEDS: BLOOD SUGAR DIAGNOSTIC STRIP TEST SCH (06:31)
[2019-09-08] MEDS: HYDROCORTISONE 10MG TABLET PO SCH ×2 (06:31→17:08)
[2019-09-08] MEDS: INSULIN LISPRO 100 UNITS/ML SUBCUT SCH (07:50)
[2019-09-08 08:00] VITALS: BP 145/90
[2019-09-08] MEDS: MIDODRINE HCL 5MG TABLET PO SCH ×3 (09:00→17:25)
[2019-09-08] MEDS: METOLAZONE 10MG TABLET PO SCH (09:13)
[2019-09-08] MEDS: ENOXAPARIN 30MG/0.3ML SYR SUBCUT SCH ×2 (09:13→20:42)
[2019-09-08] MEDS: FLUDROCORTISONE ACETATE 0.1MG TABLET PO SCH (09:16)
[2019-09-08] MEDS: ASCORBIC ACID 500 MG TABLET PO SCH (09:16)
[2019-09-08] MEDS: SODIUM HYPOCHLORITE 0.125% 473ML SOLUTION TOP SCH ×2 (09:17→17:08)
[2019-09-08] MEDS: POTASSIUM CHLORIDE 20MEQ TABLET SR PO SCH (09:17)
[2019-09-08] MEDS: ZINC SULFATE 220 MG ( 50 ) CAPSULE PO SCH (09:17)
[2019-09-08] MEDS: NYSTATIN POWDER 15GM TOP SCH ×2 (09:17→20:42)
[2019-09-08] MEDS: QUETIAPINE FUMARATE 50MG TABLET PO SCH ×2 (09:17→20:41)
[2019-09-08 12:00] VITALS: BP 123/85
[2019-09-08 16:00] VITALS: BP 115/76
[2019-09-08 20:00] VITALS: BP 121/78
[2019-09-09] VITALS: BP 121/86
[2019-09-09] MEDS: MEROPENEM 1,000 MG in SODIUM CHLORIDE 0.9% 100 ML IV SCH ×3 (02:37→16:35)
[2019-09-09] MEDS: HYDROCORTISONE 10MG TABLET PO SCH ×2 (06:08→17:23)
[2019-09-09 08:12] VITALS: BP 126/87
[2019-09-09] MEDS: ENOXAPARIN 30MG/0.3ML SYR SUBCUT SCH ×2 (09:18→20:09)
[2019-09-09] MEDS: ASCORBIC ACID 500 MG TABLET PO SCH (09:19)
[2019-09-09] MEDS: MIDODRINE HCL 5MG TABLET PO SCH ×3 (09:19→16:36)
[2019-09-09] MEDS: METOLAZONE 10MG TABLET PO SCH (09:19)
[2019-09-09] MEDS: QUETIAPINE FUMARATE 50MG TABLET PO SCH ×2 (09:19→20:09)
[2019-09-09] MEDS: ZINC SULFATE 220 MG ( 50 ) CAPSULE PO SCH (09:20)
[2019-09-09] MEDS: POTASSIUM CHLORIDE 20MEQ TABLET SR PO SCH (09:20)
[2019-09-09] MEDS: FLUDROCORTISONE ACETATE 0.1MG TABLET PO SCH (09:20)
[2019-09-09] MEDS: NYSTATIN POWDER 15GM TOP SCH ×2 (09:20→21:05)
[2019-09-09] MEDS: SODIUM HYPOCHLORITE 0.125% 473ML SOLUTION TOP SCH ×2 (09:21→17:42)
[2019-09-09] MEDS: HYDROCODONE/ACETAMINOPHEN 5/325MG TABLET PO PRN ×2 (10:51→21:04)
[2019-09-09 12:09] VITALS: BP 105/75
[2019-09-09 16:38] VITALS: BP 131/86
[2019-09-09 20:00] VITALS: BP 124/88
[2019-09-10] VITALS: BP 118/88
[2019-09-10] MEDS: MEROPENEM 1,000 MG in SODIUM CHLORIDE 0.9% 100 ML IV SCH ×3 (01:42→17:22)
[2019-09-10 04:00] VITALS: BP 117/73
[2019-09-10] MEDS: HYDROCORTISONE 10MG TABLET PO SCH ×2 (05:28→17:23)
[2019-09-10] MEDS: HYDROCODONE/ACETAMINOPHEN 5/325MG TABLET PO PRN ×2 (06:15→16:27)
[2019-09-10 08:00] VITALS: BP 91/60
[2019-09-10] MEDS: ENOXAPARIN 30MG/0.3ML SYR SUBCUT SCH (09:02)
[2019-09-10] MEDS: POTASSIUM CHLORIDE 20MEQ TABLET SR PO SCH (09:04)
[2019-09-10] MEDS: ASCORBIC ACID 500 MG TABLET PO SCH (09:04)
[2019-09-10] MEDS: ZINC SULFATE 220 MG ( 50 ) CAPSULE PO SCH (09:04)
[2019-09-10] MEDS: QUETIAPINE FUMARATE 50MG TABLET PO SCH ×2 (09:04→21:45)
[2019-09-10] MEDS: FLUDROCORTISONE ACETATE 0.1MG TABLET PO SCH (09:04)
[2019-09-10] MEDS: METOLAZONE 10MG TABLET PO SCH (09:04)
[2019-09-10] MEDS: MIDODRINE HCL 5MG TABLET PO SCH ×3 (09:04→16:27)
[2019-09-10] MEDS: NYSTATIN POWDER 15GM TOP SCH ×2 (09:05→21:45)
[2019-09-10] MEDS: SODIUM HYPOCHLORITE 0.125% 473ML SOLUTION TOP SCH ×2 (09:05→17:22)
[2019-09-10 12:00] VITALS: BP 97/67
[2019-09-10 16:00] VITALS: BP 122/89
[2019-09-10 20:00] VITALS: BP 121/80
[2019-09-11 01:24] VITALS: BP 110/77
[2019-09-11] MEDS: MEROPENEM 1,000 MG in SODIUM CHLORIDE 0.9% 100 ML IV SCH ×3 (01:29→17:58)
[2019-09-11 04:00] VITALS: BP 126/76
[2019-09-11 04:50] LABS: CHLORIDE 105 mEq/L (98-107)
[2019-09-11] MEDS: HYDROCORTISONE 10MG TABLET PO SCH ×2 (05:55→17:57)
[2019-09-11] MEDS: HYDROCODONE/ACETAMINOPHEN 5/325MG TABLET PO PRN ×3 (06:07→21:13)
[2019-09-11 08:00] VITALS: BP 105/67
[2019-09-11] MEDS: SODIUM HYPOCHLORITE 0.125% 473ML SOLUTION TOP SCH ×2 (08:53→17:56)
[2019-09-11] MEDS: NYSTATIN POWDER 15GM TOP SCH ×2 (08:53→20:33)
[2019-09-11] MEDS: FLUDROCORTISONE ACETATE 0.1MG TABLET PO SCH (08:54)
[2019-09-11] MEDS: MIDODRINE HCL 5MG TABLET PO SCH ×3 (08:54→17:57)
[2019-09-11] MEDS: METOLAZONE 10MG TABLET PO SCH (08:55)
[2019-09-11] MEDS: ASCORBIC ACID 500 MG TABLET PO SCH (08:55)
[2019-09-11] MEDS: ZINC SULFATE 220 MG ( 50 ) CAPSULE PO SCH (08:55)
[2019-09-11] MEDS: POTASSIUM CHLORIDE 20MEQ TABLET SR PO SCH ×2 (08:55→17:56)
[2019-09-11] MEDS: QUETIAPINE FUMARATE 50MG TABLET PO SCH ×2 (08:55→20:31)
[2019-09-11] MEDS ORDERED: MAGNESIUM 4 G PREMIX 100 ML IV SCH (11:00)
[2019-09-11 12:00] VITALS: BP 99/67
[2019-09-11 16:00] VITALS: BP 92/55
[2019-09-11] MEDS ORDERED: DEXTROSE 50% WATER 50ML SYRINGE IV PRN (19:00)
[2019-09-11] MEDS ORDERED: INSULIN LISPRO 100 UNITS/ML SUBCUT SCH (19:00)
[2019-09-11] MEDS ORDERED: BLOOD SUGAR DIAGNOSTIC STRIP TEST SCH (19:00)
[2019-09-11 20:20] VITALS: BP 110/79
[2019-09-11] MEDS: BLOOD SUGAR DIAGNOSTIC STRIP TEST SCH (20:31)
[2019-09-11] MEDS: INSULIN LISPRO 100 UNITS/ML SUBCUT SCH (20:55)
[2019-09-12 00:34] VITALS: BP 115/82
[2019-09-12] MEDS: MEROPENEM 1,000 MG in SODIUM CHLORIDE 0.9% 100 ML IV SCH ×3 (00:50→17:25)
[2019-09-12 04:00] VITALS: BP 100/67
[2019-09-12] MEDS: HYDROCORTISONE 10MG TABLET PO SCH ×2 (06:08→17:25)
[2019-09-12] MEDS: HYDROCODONE/ACETAMINOPHEN 5/325MG TABLET PO PRN ×2 (06:10→14:58)
[2019-09-12] MEDS: BLOOD SUGAR DIAGNOSTIC STRIP TEST SCH ×4 (06:21→21:14)
[2019-09-12] MEDS: INSULIN LISPRO 100 UNITS/ML SUBCUT SCH ×4 (07:50→21:00)
[2019-09-12 08:00] VITALS: BP 113/74
[2019-09-12] MEDS: MAGNESIUM OXIDE 400MG TABLET PO SCH ×2 (09:28→17:25)
[2019-09-12] MEDS: METOLAZONE 5MG TABLET PO SCH (09:29)
[2019-09-12] MEDS: ASCORBIC ACID 500 MG TABLET PO SCH (09:29)
[2019-09-12] MEDS: FLUDROCORTISONE ACETATE 0.1MG TABLET PO SCH (09:30)
[2019-09-12] MEDS: POTASSIUM CHLORIDE 20MEQ TABLET SR PO SCH ×2 (09:30→17:26)
[2019-09-12] MEDS: ZINC SULFATE 220 MG ( 50 ) CAPSULE PO SCH (09:30)
[2019-09-12] MEDS: NYSTATIN POWDER 15GM TOP SCH (09:31)
[2019-09-12] MEDS: SODIUM HYPOCHLORITE 0.125% 473ML SOLUTION TOP SCH ×2 (09:31→17:29)
[2019-09-12] MEDS: MIDODRINE HCL 5MG TABLET PO SCH ×3 (09:40→17:26)
[2019-09-12 12:00] VITALS: BP 107/71
[2019-09-12 13:34] LABS: BASOPHILS % 0.6 % (0.0-2.0); HEMATOCRIT. 28.9 % (42.0-52.0); HEMOGLOBIN. 9.3 g/dL (14.0-18.0); LYMPHOCYTES % 19.4 % (20.0-50.0); MEAN CORPUSCULAR HEMOGLOBIN 22.3 pg (28.0-32.0); MEAN PLATELET VOLUME 9.9 fl (7.4-10.4); MONOCYTES % 9.1 % (2.0-8.0); NEUTROPHILS % 68.9 % (40.0-76.0); PLATELET 317 x1000/uL (130-400); RED BLOOD CELL COUNT 4.19 mill/uL (4.7-6.1); RED CELL DISTRIBUTION WIDTH 23.2 % (11.6-14.6)
[2019-09-12 14:19] LABS: CHLORIDE 105 mEq/L (98-107)
[2019-09-12 16:00] VITALS: BP 125/81
[2019-09-12 20:12] VITALS: BP 111/77
[2019-09-13] VITALS (7 sets, daily range): BP systolic 103–133; BP diastolic 72–87
[2019-09-13] MEDS: MEROPENEM 1,000 MG in SODIUM CHLORIDE 0.9% 100 ML IV SCH ×3 (00:57→16:55)
[2019-09-13] MEDS: HYDROCORTISONE 10MG TABLET PO SCH ×2 (05:53→17:14)
[2019-09-13] MEDS: BLOOD SUGAR DIAGNOSTIC STRIP TEST SCH ×4 (06:23→21:33)
[2019-09-13] MEDS: INSULIN LISPRO 100 UNITS/ML SUBCUT SCH ×4 (07:43→21:00)
[2019-09-13] MEDS: SODIUM HYPOCHLORITE 0.125% 473ML SOLUTION TOP SCH ×2 (09:00→16:56)
[2019-09-13] MEDS: FLUDROCORTISONE ACETATE 0.1MG TABLET PO SCH (09:18)
[2019-09-13] MEDS: ZINC SULFATE 220 MG ( 50 ) CAPSULE PO SCH (09:18)
[2019-09-13] MEDS: MIDODRINE HCL 5MG TABLET PO SCH ×3 (09:18→16:56)
[2019-09-13] MEDS: ASCORBIC ACID 500 MG TABLET PO SCH (09:18)
[2019-09-13] MEDS: POTASSIUM CHLORIDE 20MEQ TABLET SR PO SCH ×2 (09:18→16:55)
[2019-09-13] MEDS: METOLAZONE 5MG TABLET PO SCH (09:19)
[2019-09-13] MEDS: MAGNESIUM OXIDE 400MG TABLET PO SCH ×2 (09:19→16:55)
[2019-09-13] MEDS: HYDROCODONE/ACETAMINOPHEN 5/325MG TABLET PO PRN ×2 (13:07→22:38)
[2019-09-14 00:10] VITALS: BP 116/79
[2019-09-14] MEDS: MEROPENEM 1,000 MG in SODIUM CHLORIDE 0.9% 100 ML IV SCH ×3 (02:08→17:25)
[2019-09-14 04:00] VITALS: BP 112/79
[2019-09-14] MEDS: HYDROCODONE/ACETAMINOPHEN 5/325MG TABLET PO PRN ×4 (05:20→23:16)
[2019-09-14] MEDS: HYDROCORTISONE 10MG TABLET PO SCH ×2 (05:21→17:24)
[2019-09-14] MEDS: BLOOD SUGAR DIAGNOSTIC STRIP TEST SCH ×4 (06:54→21:00)
[2019-09-14 07:49] VITALS: BP 109/76
[2019-09-14] MEDS: INSULIN LISPRO 100 UNITS/ML SUBCUT SCH ×4 (07:50→21:00)
[2019-09-14] MEDS: MAGNESIUM OXIDE 400MG TABLET PO SCH ×2 (08:20→17:23)
[2019-09-14] MEDS: POTASSIUM CHLORIDE 20MEQ TABLET SR PO SCH ×2 (08:20→17:24)
[2019-09-14] MEDS: MIDODRINE HCL 5MG TABLET PO SCH ×3 (08:21→17:28)
[2019-09-14] MEDS: FLUDROCORTISONE ACETATE 0.1MG TABLET PO SCH (08:21)
[2019-09-14] MEDS: METOLAZONE 5MG TABLET PO SCH (08:21)
[2019-09-14] MEDS: SODIUM HYPOCHLORITE 0.125% 473ML SOLUTION TOP SCH ×2 (08:21→17:25)
[2019-09-14 11:40] VITALS: BP 103/74
[2019-09-14 16:05] VITALS: BP 115/82
[2019-09-14 20:07] VITALS: BP 128/92
[2019-09-15] VITALS (8 sets, daily range): BP systolic 82–136; BP diastolic 57–85
[2019-09-15] MEDS: MEROPENEM 1,000 MG in SODIUM CHLORIDE 0.9% 100 ML IV SCH ×3 (00:06→16:06)
[2019-09-15] MEDS: HYDROCORTISONE 10MG TABLET PO SCH ×2 (06:00→17:10)
[2019-09-15] MEDS: INSULIN LISPRO 100 UNITS/ML SUBCUT SCH ×4 (07:32→21:00)
[2019-09-15] MEDS: BLOOD SUGAR DIAGNOSTIC STRIP TEST SCH ×4 (07:32→21:11)
[2019-09-15] MEDS: METOLAZONE 5MG TABLET PO SCH (09:02)
[2019-09-15] MEDS: FLUDROCORTISONE ACETATE 0.1MG TABLET PO SCH (09:02)
[2019-09-15] MEDS: MAGNESIUM OXIDE 400MG TABLET PO SCH ×2 (09:02→16:08)
[2019-09-15] MEDS: MIDODRINE HCL 5MG TABLET PO SCH ×3 (09:02→16:10)
[2019-09-15] MEDS: POTASSIUM CHLORIDE 20MEQ TABLET SR PO SCH ×2 (09:03→16:08)
[2019-09-15] MEDS: HYDROCODONE/ACETAMINOPHEN 5/325MG TABLET PO PRN ×2 (13:57→21:11)
[2019-09-16] VITALS: BP 98/59
[2019-09-16] MEDS: MEROPENEM 1,000 MG in SODIUM CHLORIDE 0.9% 100 ML IV SCH ×3 (01:48→17:34)
[2019-09-16 04:00] VITALS: BP 89/54
[2019-09-16] MEDS: HYDROCORTISONE 10MG TABLET PO SCH ×2 (06:16→21:40)
[2019-09-16] MEDS: HYDROCODONE/ACETAMINOPHEN 5/325MG TABLET PO PRN ×3 (06:16→18:56)
[2019-09-16] MEDS: BLOOD SUGAR DIAGNOSTIC STRIP TEST SCH ×4 (07:49→21:00)
[2019-09-16] MEDS: INSULIN LISPRO 100 UNITS/ML SUBCUT SCH ×4 (07:50→21:00)
[2019-09-16 08:00] VITALS: BP 94/67
[2019-09-16] MEDS: FLUDROCORTISONE ACETATE 0.1MG TABLET PO SCH (09:12)
[2019-09-16] MEDS: MAGNESIUM OXIDE 400MG TABLET PO SCH ×2 (09:13→17:34)
[2019-09-16] MEDS: MIDODRINE HCL 5MG TABLET PO SCH ×3 (09:13→17:34)
[2019-09-16] MEDS: METOLAZONE 5MG TABLET PO SCH (09:13)
[2019-09-16] MEDS: POTASSIUM CHLORIDE 20MEQ TABLET SR PO SCH ×2 (09:13→17:34)
[2019-09-16] MEDS: LORAZEPAM 1MG TABLET PO PRN (10:53)
[2019-09-16 12:00] VITALS: BP 97/54
[2019-09-16 16:00] VITALS: BP 109/78
[2019-09-16 20:00] VITALS: BP 121/86
[2019-09-17] VITALS: BP 143/93
[2019-09-17] MEDS: MEROPENEM 1,000 MG in SODIUM CHLORIDE 0.9% 100 ML IV SCH ×3 (00:47→17:25)
[2019-09-17 04:00] VITALS: BP 128/86
[2019-09-17] MEDS: BLOOD SUGAR DIAGNOSTIC STRIP TEST SCH ×4 (06:42→21:00)
[2019-09-17] MEDS: INSULIN LISPRO 100 UNITS/ML SUBCUT SCH ×4 (06:43→21:00)
[2019-09-17] MEDS: HYDROCORTISONE 10MG TABLET PO SCH ×2 (06:44→17:24)
[2019-09-17 08:00] VITALS: BP 117/85
[2019-09-17] MEDS: MAGNESIUM OXIDE 400MG TABLET PO SCH ×2 (08:27→17:25)
[2019-09-17] MEDS: METOLAZONE 5MG TABLET PO SCH (08:27)
[2019-09-17] MEDS: POTASSIUM CHLORIDE 20MEQ TABLET SR PO SCH ×2 (08:27→17:25)
[2019-09-17] MEDS: LORAZEPAM 1MG TABLET PO PRN (08:27)
[2019-09-17] MEDS: FLUDROCORTISONE ACETATE 0.1MG TABLET PO SCH (08:27)
[2019-09-17] MEDS: MIDODRINE HCL 5MG TABLET PO SCH ×3 (08:28→17:24)
[2019-09-17] MEDS: HYDROCODONE/ACETAMINOPHEN 5/325MG TABLET PO PRN ×3 (08:42→22:12)
[2019-09-17 12:00] VITALS: BP 114/83
[2019-09-17 16:00] VITALS: BP 117/81
[2019-09-17] MEDS: MAGNESIUM/ALUMINUM HYDROXIDE/SIMETHICONE 30ML UDC PO PRN (18:32)
[2019-09-17 20:30] VITALS: BP 120/87
[2019-09-18] VITALS: BP 113/81
[2019-09-18] MEDS: MEROPENEM 1,000 MG in SODIUM CHLORIDE 0.9% 100 ML IV SCH ×3 (00:54→17:18)
[2019-09-18] MEDS: MAGNESIUM/ALUMINUM HYDROXIDE/SIMETHICONE 30ML UDC PO PRN ×3 (01:02→17:19)
[2019-09-18 04:00] VITALS: BP 110/82
[2019-09-18] MEDS: HYDROCODONE/ACETAMINOPHEN 5/325MG TABLET PO PRN ×5 (04:43→21:40)
[2019-09-18] MEDS: HYDROCORTISONE 10MG TABLET PO SCH ×2 (06:18→17:32)
[2019-09-18] MEDS: BLOOD SUGAR DIAGNOSTIC STRIP TEST SCH ×4 (07:33→21:35)
[2019-09-18] MEDS: INSULIN LISPRO 100 UNITS/ML SUBCUT SCH ×4 (07:33→21:00)
[2019-09-18 08:00] VITALS: BP 104/78
[2019-09-18] MEDS: FLUDROCORTISONE ACETATE 0.1MG TABLET PO SCH (09:01)
[2019-09-18] MEDS: MIDODRINE HCL 5MG TABLET PO SCH ×3 (09:01→17:19)
[2019-09-18] MEDS: POTASSIUM CHLORIDE 20MEQ TABLET SR PO SCH ×2 (09:01→17:20)
[2019-09-18] MEDS: MAGNESIUM OXIDE 400MG TABLET PO SCH ×2 (09:01→17:21)
[2019-09-18] MEDS: METOLAZONE 5MG TABLET PO SCH (09:02)
[2019-09-18 16:00] VITALS: BP 110/76
[2019-09-18 20:00] VITALS: BP 109/70
[2019-09-18] MEDS: LORAZEPAM 1MG TABLET PO PRN (21:40)
[2019-09-19] VITALS: BP 114/83
[2019-09-19 04:00] VITALS: BP 112/80
[2019-09-19] MEDS: HYDROCORTISONE 10MG TABLET PO SCH ×2 (05:53→17:25)
[2019-09-19] MEDS: HYDROCODONE/ACETAMINOPHEN 5/325MG TABLET PO PRN ×2 (05:54→11:16)
[2019-09-19] MEDS: MEROPENEM 1,000 MG in SODIUM CHLORIDE 0.9% 100 ML IV SCH ×3 (05:54→21:11)
[2019-09-19] MEDS: BLOOD SUGAR DIAGNOSTIC STRIP TEST SCH ×4 (07:03→21:10)
[2019-09-19] MEDS: INSULIN LISPRO 100 UNITS/ML SUBCUT SCH ×4 (07:50→21:00)
[2019-09-19 08:00] VITALS: BP 104/70
[2019-09-19] MEDS: POTASSIUM CHLORIDE 20MEQ TABLET SR PO SCH ×2 (09:15→17:26)
[2019-09-19] MEDS: METOLAZONE 5MG TABLET PO SCH (09:15)
[2019-09-19] MEDS: MIDODRINE HCL 5MG TABLET PO SCH ×3 (09:15→17:26)
[2019-09-19] MEDS: MAGNESIUM OXIDE 400MG TABLET PO SCH ×2 (09:15→17:25)
[2019-09-19] MEDS: FLUDROCORTISONE ACETATE 0.1MG TABLET PO SCH (09:15)
[2019-09-19] MEDS: LORAZEPAM 1MG TABLET PO PRN (11:16)
[2019-09-19 12:00] VITALS: BP 100/68
[2019-09-19 16:00] VITALS: BP 102/73
[2019-09-19 20:00] VITALS: BP 129/81
[2019-09-19] MEDS: HYDROCODONE/ACETAMINOPHEN 10/325MG TABLET PO PRN (21:11)
[2019-09-20] VITALS: BP 112/71
[2019-09-20] MEDS: LORAZEPAM 1MG TABLET PO PRN ×2 (00:08→21:30)
[2019-09-20 04:00] VITALS: BP 109/77
[2019-09-20] MEDS: HYDROCORTISONE 10MG TABLET PO SCH ×2 (06:24→17:31)
[2019-09-20] MEDS: MEROPENEM 1,000 MG in SODIUM CHLORIDE 0.9% 100 ML IV SCH ×3 (06:24→21:30)
[2019-09-20] MEDS: HYDROCODONE/ACETAMINOPHEN 10/325MG TABLET PO PRN ×3 (06:25→16:19)
[2019-09-20] MEDS: BLOOD SUGAR DIAGNOSTIC STRIP TEST SCH ×4 (07:33→21:58)
[2019-09-20] MEDS: INSULIN LISPRO 100 UNITS/ML SUBCUT SCH ×4 (07:34→21:00)
[2019-09-20 08:00] VITALS: BP 108/74
[2019-09-20] MEDS: FLUDROCORTISONE ACETATE 0.1MG TABLET PO SCH (08:12)
[2019-09-20] MEDS: MAGNESIUM OXIDE 400MG TABLET PO SCH ×2 (08:12→16:20)
[2019-09-20] MEDS: POTASSIUM CHLORIDE 20MEQ TABLET SR PO SCH ×2 (08:12→16:20)
[2019-09-20] MEDS: METOLAZONE 5MG TABLET PO SCH (08:12)
[2019-09-20 20:00] VITALS: BP 94/60
[2019-09-20] MEDS: ENOXAPARIN 30MG/0.3ML SYR SUBCUT SCH (21:30)
[2019-09-21] VITALS: BP 95/61
[2019-09-21] MEDS: HYDROCODONE/ACETAMINOPHEN 10/325MG TABLET PO PRN ×4 (01:34→21:07)
[2019-09-21 04:00] VITALS: BP 92/64
[2019-09-21] MEDS: HYDROCORTISONE 10MG TABLET PO SCH ×2 (06:36→17:13)
[2019-09-21] MEDS: MEROPENEM 1,000 MG in SODIUM CHLORIDE 0.9% 100 ML IV SCH ×3 (06:36→21:09)
[2019-09-21] MEDS: BLOOD SUGAR DIAGNOSTIC STRIP TEST SCH ×4 (07:41→21:07)
[2019-09-21] MEDS: INSULIN LISPRO 100 UNITS/ML SUBCUT SCH ×4 (07:42→21:00)
[2019-09-21 08:00] VITALS: BP 116/81
[2019-09-21] MEDS: POTASSIUM CHLORIDE 20MEQ TABLET SR PO SCH ×2 (09:51→17:12)
[2019-09-21] MEDS: FLUDROCORTISONE ACETATE 0.1MG TABLET PO SCH (09:51)
[2019-09-21] MEDS: METOLAZONE 5MG TABLET PO SCH (09:52)
[2019-09-21] MEDS: MAGNESIUM OXIDE 400MG TABLET PO SCH ×2 (09:52→17:12)
[2019-09-21] MEDS: MIDODRINE HCL 5MG TABLET PO SCH ×3 (09:52→17:13)
[2019-09-21] MEDS: ENOXAPARIN 30MG/0.3ML SYR SUBCUT SCH ×2 (09:53→21:07)
[2019-09-21 12:00] VITALS: BP 115/83
[2019-09-21 16:00] VITALS: BP 101/67
[2019-09-21] MEDS: OMEPRAZOLE 20MG CAPSULE EXTENDED RELEASE PO SCH (17:12)
[2019-09-21 20:00] VITALS: BP 135/87
[2019-09-22] VITALS: BP 109/59
[2019-09-22] MEDS: HYDROCODONE/ACETAMINOPHEN 10/325MG TABLET PO PRN ×3 (03:55→17:50)
[2019-09-22 04:00] VITALS: BP 117/82
[2019-09-22] MEDS: HYDROCORTISONE 10MG TABLET PO SCH ×2 (05:36→17:48)
[2019-09-22] MEDS: MEROPENEM 1,000 MG in SODIUM CHLORIDE 0.9% 100 ML IV SCH ×3 (05:36→21:17)
[2019-09-22] MEDS: BLOOD SUGAR DIAGNOSTIC STRIP TEST SCH ×4 (07:30→21:11)
[2019-09-22] MEDS: INSULIN LISPRO 100 UNITS/ML SUBCUT SCH ×4 (07:36→21:00)
[2019-09-22 08:00] VITALS: BP 113/74
[2019-09-22] MEDS: METOLAZONE 5MG TABLET PO SCH (09:41)
[2019-09-22] MEDS: FLUDROCORTISONE ACETATE 0.1MG TABLET PO SCH (09:41)
[2019-09-22] MEDS: POTASSIUM CHLORIDE 20MEQ TABLET SR PO SCH ×2 (09:41→17:49)
[2019-09-22] MEDS: MIDODRINE HCL 5MG TABLET PO SCH ×3 (09:41→17:49)
[2019-09-22] MEDS: OMEPRAZOLE 20MG CAPSULE EXTENDED RELEASE PO SCH ×2 (09:41→17:49)
[2019-09-22] MEDS: MAGNESIUM OXIDE 400MG TABLET PO SCH ×2 (09:41→17:48)
[2019-09-22] MEDS: ENOXAPARIN 30MG/0.3ML SYR SUBCUT SCH ×2 (09:42→21:14)
[2019-09-22 20:00] VITALS: BP 115/78
[2019-09-23] VITALS: BP 109/76
[2019-09-23] MEDS: HYDROCODONE/ACETAMINOPHEN 10/325MG TABLET PO PRN ×4 (01:58→22:58)
[2019-09-23 04:00] VITALS: BP 112/84
[2019-09-23] MEDS: HYDROCORTISONE 10MG TABLET PO SCH ×2 (06:13→18:14)
[2019-09-23] MEDS: BLOOD SUGAR DIAGNOSTIC STRIP TEST SCH ×4 (07:17→21:56)
[2019-09-23] MEDS: INSULIN LISPRO 100 UNITS/ML SUBCUT SCH ×4 (07:17→21:00)
[2019-09-23 07:29] LABS: BASOPHILS % 0.7 % (0.0-2.0); EOSINOPHILS % 1.6 % (0.0-5.0); HEMATOCRIT. 33.6 % (42.0-52.0); HEMOGLOBIN. 10.6 g/dL (14.0-18.0); LYMPHOCYTES % 20.7 % (20.0-50.0); MEAN CORPUSCULAR HEMOGLOBIN 21.8 pg (28.0-32.0); MEAN PLATELET VOLUME 11.1 fl (7.4-10.4); MONOCYTES % 8.3 % (2.0-8.0); NEUTROPHILS % 68.7 % (40.0-76.0); PLATELET 297 x1000/uL (130-400); RED BLOOD CELL COUNT 4.87 mill/uL (4.7-6.1); RED CELL DISTRIBUTION WIDTH 21.6 % (11.6-14.6)
[2019-09-23 07:53] LABS: CHLORIDE 107 mEq/L (98-107)
[2019-09-23 08:00] VITALS: BP 106/74
[2019-09-23 08:02] LABS: PHOSPHORUS 3.9 mg/dL (2.5-4.9)
[2019-09-23] MEDS: MIDODRINE HCL 5MG TABLET PO SCH ×3 (09:11→16:34)
[2019-09-23] MEDS: POTASSIUM CHLORIDE 20MEQ TABLET SR PO SCH ×2 (09:11→16:35)
[2019-09-23] MEDS: MAGNESIUM OXIDE 400MG TABLET PO SCH ×2 (09:11→16:34)
[2019-09-23] MEDS: METOLAZONE 5MG TABLET PO SCH (09:11)
[2019-09-23] MEDS: ENOXAPARIN 30MG/0.3ML SYR SUBCUT SCH ×2 (09:12→22:12)
[2019-09-23] MEDS: OMEPRAZOLE 20MG CAPSULE EXTENDED RELEASE PO SCH ×2 (09:15→16:34)
[2019-09-23 12:00] VITALS: BP 109/76
[2019-09-23 16:00] VITALS: BP 114/78
[2019-09-23 20:00] VITALS: BP 110/77
[2019-09-24] VITALS: BP 115/77
[2019-09-24 04:00] VITALS: BP 108/78
[2019-09-24] MEDS: HYDROCORTISONE 10MG TABLET PO SCH ×2 (05:45→17:48)
[2019-09-24] MEDS: HYDROCODONE/ACETAMINOPHEN 10/325MG TABLET PO PRN ×3 (05:46→17:50)
[2019-09-24] MEDS: BLOOD SUGAR DIAGNOSTIC STRIP TEST SCH ×4 (06:49→20:30)
[2019-09-24] MEDS: INSULIN LISPRO 100 UNITS/ML SUBCUT SCH ×4 (07:50→20:30)
[2019-09-24 08:00] VITALS: BP_SYST 88; BP_SYST 91; BP_DIAS 57; BP_DIAS 59
[2019-09-24] MEDS: ENOXAPARIN 30MG/0.3ML SYR SUBCUT SCH ×2 (09:31→20:31)
[2019-09-24] MEDS: MAGNESIUM OXIDE 400MG TABLET PO SCH ×2 (09:31→17:49)
[2019-09-24] MEDS: OMEPRAZOLE 20MG CAPSULE EXTENDED RELEASE PO SCH (09:31)
[2019-09-24] MEDS: MIDODRINE HCL 5MG TABLET PO SCH ×3 (09:32→17:50)
[2019-09-24 12:00] VITALS: BP 97/64
[2019-09-24 16:00] VITALS: BP 99/65
[2019-09-24] MEDS: FAMOTIDINE 20MG TABLET PO SCH (17:49)
[2019-09-24 20:00] VITALS: BP 111/72
[2019-09-24] MEDS: MAGNESIUM/ALUMINUM HYDROXIDE/SIMETHICONE 30ML UDC PO PRN (20:37)
[2019-09-25] VITALS: BP 116/76
[2019-09-25 04:00] VITALS: BP 103/72
[2019-09-25] MEDS: HYDROCORTISONE 10MG TABLET PO SCH ×2 (05:28→17:43)
[2019-09-25] MEDS: HYDROCODONE/ACETAMINOPHEN 10/325MG TABLET PO PRN ×3 (05:29→17:55)
[2019-09-25] MEDS: INSULIN LISPRO 100 UNITS/ML SUBCUT SCH ×4 (06:25→21:00)
[2019-09-25] MEDS: BLOOD SUGAR DIAGNOSTIC STRIP TEST SCH ×4 (06:25→21:41)
[2019-09-25 08:00] VITALS: BP 102/70
[2019-09-25] MEDS: MAGNESIUM OXIDE 400MG TABLET PO SCH ×2 (08:10→16:50)
[2019-09-25] MEDS: FAMOTIDINE 20MG TABLET PO SCH ×2 (08:10→16:49)
[2019-09-25] MEDS: ENOXAPARIN 30MG/0.3ML SYR SUBCUT SCH ×2 (08:11→21:37)
[2019-09-25] MEDS: MIDODRINE HCL 5MG TABLET PO SCH ×3 (08:11→16:53)
[2019-09-25] MEDS: MAGNESIUM/ALUMINUM HYDROXIDE/SIMETHICONE 30ML UDC PO PRN ×2 (10:20→22:05)
[2019-09-25 12:00] VITALS: BP 107/71
[2019-09-25 16:00] VITALS: BP 101/67
[2019-09-25 20:00] VITALS: BP 123/83
[2019-09-26] VITALS: BP 105/69
[2019-09-26] MEDS: HYDROCODONE/ACETAMINOPHEN 10/325MG TABLET PO PRN ×4 (00:05→18:26)
[2019-09-26 04:00] VITALS: BP 92/61
[2019-09-26] MEDS: HYDROCORTISONE 10MG TABLET PO SCH ×2 (06:48→17:12)
[2019-09-26] MEDS: BLOOD SUGAR DIAGNOSTIC STRIP TEST SCH ×4 (06:53→21:23)
[2019-09-26] MEDS: INSULIN LISPRO 100 UNITS/ML SUBCUT SCH ×4 (06:54→21:00)
[2019-09-26 08:00] VITALS: BP 101/71
[2019-09-26] MEDS: MAGNESIUM OXIDE 400MG TABLET PO SCH ×2 (08:21→17:14)
[2019-09-26] MEDS: FAMOTIDINE 20MG TABLET PO SCH ×2 (08:21→17:11)
[2019-09-26] MEDS: MIDODRINE HCL 5MG TABLET PO SCH ×3 (08:21→17:12)
[2019-09-26] MEDS: ENOXAPARIN 30MG/0.3ML SYR SUBCUT SCH ×2 (08:22→21:23)
[2019-09-26 12:00] VITALS: BP 100/75
[2019-09-26 16:00] VITALS: BP 101/72
[2019-09-26] MEDS: MAGNESIUM/ALUMINUM HYDROXIDE/SIMETHICONE 30ML UDC PO PRN ×2 (17:11→22:44)
[2019-09-26 20:00] VITALS: BP 127/83
[2019-09-27] VITALS: BP_SYST 104; BP_SYST 129; BP_DIAS 69; BP_DIAS 79
[2019-09-27] MEDS: HYDROCODONE/ACETAMINOPHEN 10/325MG TABLET PO PRN ×4 (02:10→21:12)
[2019-09-27 04:00] VITALS: BP 129/79
[2019-09-27] MEDS ORDERED: HYDROCORTISONE 10MG TABLET PO SCH ×2 (06:00→18:00)
[2019-09-27] MEDS: BLOOD SUGAR DIAGNOSTIC STRIP TEST SCH ×4 (07:27→21:12)
[2019-09-27] MEDS: INSULIN LISPRO 100 UNITS/ML SUBCUT SCH ×4 (07:40→21:00)
[2019-09-27 08:00] VITALS: BP 92/67
[2019-09-27] MEDS: FAMOTIDINE 20MG TABLET PO SCH ×2 (09:52→16:40)
[2019-09-27] MEDS: ENOXAPARIN 30MG/0.3ML SYR SUBCUT SCH ×2 (09:52→21:12)
[2019-09-27] MEDS: MIDODRINE HCL 5MG TABLET PO SCH ×3 (09:54→16:40)
[2019-09-27] MEDS: MAGNESIUM OXIDE 400MG TABLET PO SCH ×2 (09:54→16:40)
[2019-09-27 12:00] VITALS: BP 94/68
[2019-09-27] MEDS: MAGNESIUM/ALUMINUM HYDROXIDE/SIMETHICONE 30ML UDC PO PRN (15:46)
[2019-09-27 16:00] VITALS: BP 131/67
[2019-09-27] MEDS: HYDROCORTISONE 10MG TABLET PO SCH (18:13)
[2019-09-27 20:00] VITALS: BP 149/83
[2019-09-28] VITALS: BP 123/75
[2019-09-28 04:00] VITALS: BP 103/72
[2019-09-28] MEDS: BLOOD SUGAR DIAGNOSTIC STRIP TEST SCH ×4 (07:40→21:52)
[2019-09-28] MEDS: INSULIN LISPRO 100 UNITS/ML SUBCUT SCH ×4 (07:40→21:00)
[2019-09-28 08:00] VITALS: BP 93/65
[2019-09-28] MEDS: ENOXAPARIN 30MG/0.3ML SYR SUBCUT SCH ×2 (08:55→21:52)
[2019-09-28] MEDS: MIDODRINE HCL 5MG TABLET PO SCH ×3 (08:55→18:44)
[2019-09-28] MEDS: MAGNESIUM OXIDE 400MG TABLET PO SCH ×2 (08:55→18:44)
[2019-09-28] MEDS: FAMOTIDINE 20MG TABLET PO SCH ×2 (08:55→18:43)
[2019-09-28 12:00] VITALS: BP 89/64
[2019-09-28] MEDS: HYDROCODONE/ACETAMINOPHEN 10/325MG TABLET PO PRN ×2 (12:41→18:45)
[2019-09-28 16:00] VITALS: BP 101/70
[2019-09-28] MEDS: ALPRAZOLAM 0.5 MG TABLET PO PRN (18:43)
[2019-09-28] MEDS: HYDROCORTISONE 10MG TABLET PO SCH (18:43)
[2019-09-28 20:00] VITALS: BP 102/67
[2019-09-29] VITALS: BP 116/76
[2019-09-29 04:00] VITALS: BP 112/73
[2019-09-29] MEDS: BLOOD SUGAR DIAGNOSTIC STRIP TEST SCH ×3 (06:25→17:18)
[2019-09-29] MEDS: INSULIN LISPRO 100 UNITS/ML SUBCUT SCH ×3 (07:50→17:18)
[2019-09-29 08:00] VITALS: BP 107/66
[2019-09-29] MEDS: FAMOTIDINE 20MG TABLET PO SCH ×2 (09:13→17:29)
[2019-09-29] MEDS: HYDROCODONE/ACETAMINOPHEN 10/325MG TABLET PO PRN ×3 (09:14→23:42)
[2019-09-29] MEDS: MIDODRINE HCL 5MG TABLET PO SCH ×3 (09:14→17:29)
[2019-09-29] MEDS: ENOXAPARIN 30MG/0.3ML SYR SUBCUT SCH ×2 (09:16→21:43)
[2019-09-29] MEDS: MAGNESIUM OXIDE 400MG TABLET PO SCH ×2 (09:20→17:29)
[2019-09-29 12:00] VITALS: BP 96/61
[2019-09-29] MEDS: POLYVINYL ALCOHOL OPHTH DROPS 15ML RIGHTEYE PRN (12:19)
[2019-09-29] MEDS: FLUDROCORTISONE ACETATE 0.1MG TABLET PO SCH (12:20)
[2019-09-29 16:00] VITALS: BP 104/72
[2019-09-29] MEDS: HYDROCORTISONE 10MG TABLET PO SCH (18:59)
[2019-09-29 20:00] VITALS: BP 114/73
[2019-09-30] VITALS: BP 114/74
[2019-09-30 04:00] VITALS: BP 108/74
[2019-09-30] MEDS: BLOOD SUGAR DIAGNOSTIC STRIP TEST SCH ×4 (07:20→21:01)
[2019-09-30 08:00] VITALS: BP 96/63
[2019-09-30] MEDS: MIDODRINE HCL 5MG TABLET PO SCH ×3 (08:56→17:49)
[2019-09-30] MEDS: FAMOTIDINE 20MG TABLET PO SCH ×2 (08:57→17:49)
[2019-09-30] MEDS: MAGNESIUM OXIDE 400MG TABLET PO SCH ×2 (08:57→17:49)
[2019-09-30] MEDS: FLUDROCORTISONE ACETATE 0.1MG TABLET PO SCH (08:57)
[2019-09-30] MEDS: ENOXAPARIN 30MG/0.3ML SYR SUBCUT SCH ×2 (08:58→20:50)
[2019-09-30] MEDS: INSULIN LISPRO 100 UNITS/ML SUBCUT SCH ×4 (09:07→21:00)
[2019-09-30] MEDS: HYDROCODONE/ACETAMINOPHEN 10/325MG TABLET PO PRN ×2 (10:55→18:16)
[2019-09-30 11:40] VITALS: BP 102/69
[2019-09-30] MEDS: MAGNESIUM/ALUMINUM HYDROXIDE/SIMETHICONE 30ML UDC PO PRN (14:07)
[2019-09-30 16:00] VITALS: BP 103/75
[2019-09-30] MEDS: HYDROCORTISONE 10MG TABLET PO SCH (18:02)
[2019-09-30 20:00] VITALS: BP 119/81
[2019-10-01] VITALS: BP 148/96
[2019-10-01] MEDS: HYDROCODONE/ACETAMINOPHEN 10/325MG TABLET PO PRN ×4 (00:23→18:38)
[2019-10-01 04:00] VITALS: BP 101/71
[2019-10-01] MEDS: BLOOD SUGAR DIAGNOSTIC STRIP TEST SCH ×4 (06:33→21:26)
[2019-10-01] MEDS: INSULIN LISPRO 100 UNITS/ML SUBCUT SCH ×4 (07:50→21:00)
[2019-10-01 08:00] VITALS: BP 90/56
[2019-10-01] MEDS: MIDODRINE HCL 5MG TABLET PO SCH ×3 (08:24→17:08)
[2019-10-01] MEDS: MAGNESIUM OXIDE 400MG TABLET PO SCH ×2 (08:24→17:03)
[2019-10-01] MEDS: FLUDROCORTISONE ACETATE 0.1MG TABLET PO SCH (08:24)
[2019-10-01] MEDS: FAMOTIDINE 20MG TABLET PO SCH ×2 (08:24→17:08)
[2019-10-01] MEDS: ENOXAPARIN 30MG/0.3ML SYR SUBCUT SCH ×2 (08:25→21:14)
[2019-10-01 12:00] VITALS: BP 104/75
[2019-10-01 16:00] VITALS: BP 113/81
[2019-10-01] MEDS: ALPRAZOLAM 0.5 MG TABLET PO PRN (17:03)
[2019-10-01] MEDS: MAGNESIUM/ALUMINUM HYDROXIDE/SIMETHICONE 30ML UDC PO PRN (17:09)
[2019-10-01] MEDS: HYDROCORTISONE 10MG TABLET PO SCH (18:36)
[2019-10-01 20:00] VITALS: BP 111/73
[2019-10-02] VITALS: BP 109/77
[2019-10-02] MEDS: HYDROCODONE/ACETAMINOPHEN 10/325MG TABLET PO PRN ×4 (00:39→21:59)
[2019-10-02 04:00] VITALS: BP 96/68
[2019-10-02] MEDS: BLOOD SUGAR DIAGNOSTIC STRIP TEST SCH ×4 (06:08→21:19)
[2019-10-02] MEDS: INSULIN LISPRO 100 UNITS/ML SUBCUT SCH ×4 (06:09→21:56)
[2019-10-02 08:00] VITALS: BP 99/69
[2019-10-02] MEDS: FAMOTIDINE 20MG TABLET PO SCH ×2 (08:43→16:53)
[2019-10-02] MEDS: ENOXAPARIN 30MG/0.3ML SYR SUBCUT SCH ×2 (08:46→21:21)
[2019-10-02] MEDS: MAGNESIUM OXIDE 400MG TABLET PO SCH ×2 (08:46→17:41)
[2019-10-02] MEDS: MIDODRINE HCL 5MG TABLET PO SCH ×3 (08:46→16:53)
[2019-10-02] MEDS: FLUDROCORTISONE ACETATE 0.1MG TABLET PO SCH (08:47)
[2019-10-02] MEDS ORDERED: LIDOCAINE HCL/EPINEPHRINE 1%-EPI 1:100,000 20 ML VIAL INFIL SCH (10:00)
[2019-10-02 12:00] VITALS: BP 101/55
[2019-10-02 16:00] VITALS: BP 110/75
[2019-10-02] MEDS: HYDROCORTISONE 10MG TABLET PO SCH (18:03)
[2019-10-02 20:00] VITALS: BP 109/74
[2019-10-02] MEDS: ALPRAZOLAM 0.5 MG TABLET PO PRN (21:21)
[2019-10-03] VITALS: BP 123/80
[2019-10-03 04:00] VITALS: BP 118/81
[2019-10-03] MEDS: BLOOD SUGAR DIAGNOSTIC STRIP TEST SCH ×4 (07:03→21:21)
[2019-10-03] MEDS: INSULIN LISPRO 100 UNITS/ML SUBCUT SCH ×4 (07:50→21:00)
[2019-10-03 08:00] VITALS: BP 101/71
[2019-10-03] MEDS: FLUDROCORTISONE ACETATE 0.1MG TABLET PO SCH (09:27)
[2019-10-03] MEDS: MIDODRINE HCL 5MG TABLET PO SCH ×3 (09:28→17:53)
[2019-10-03] MEDS: ENOXAPARIN 30MG/0.3ML SYR SUBCUT SCH ×2 (09:28→21:34)
[2019-10-03] MEDS: FAMOTIDINE 20MG TABLET PO SCH ×2 (09:28→17:53)
[2019-10-03] MEDS: MAGNESIUM OXIDE 400MG TABLET PO SCH ×2 (09:28→17:58)
[2019-10-03] MEDS: HYDROCODONE/ACETAMINOPHEN 10/325MG TABLET PO PRN ×2 (10:39→17:59)
[2019-10-03 12:00] VITALS: BP 96/65
[2019-10-03 16:00] VITALS: BP 115/73
[2019-10-03] MEDS: MAGNESIUM/ALUMINUM HYDROXIDE/SIMETHICONE 30ML UDC PO PRN (17:53)
[2019-10-03] MEDS: POLYVINYL ALCOHOL OPHTH DROPS 15ML RIGHTEYE PRN (17:59)
[2019-10-03] MEDS: HYDROCORTISONE 10MG TABLET PO SCH (18:42)
[2019-10-03 20:00] VITALS: BP 111/75
[2019-10-03] MEDS: ALPRAZOLAM 0.5 MG TABLET PO PRN (21:33)
[2019-10-04] VITALS: BP 107/71
[2019-10-04] MEDS: HYDROCODONE/ACETAMINOPHEN 10/325MG TABLET PO PRN ×4 (00:52→20:33)
[2019-10-04 04:00] VITALS: BP 104/67
[2019-10-04] MEDS: BLOOD SUGAR DIAGNOSTIC STRIP TEST SCH ×4 (07:40→21:00)
[2019-10-04 08:00] VITALS: BP 103/72
[2019-10-04] MEDS: FLUDROCORTISONE ACETATE 0.1MG TABLET PO SCH (08:29)
[2019-10-04] MEDS: FAMOTIDINE 20MG TABLET PO SCH ×2 (08:29→17:41)
[2019-10-04] MEDS: MAGNESIUM OXIDE 400MG TABLET PO SCH ×2 (08:29→17:41)
[2019-10-04] MEDS: MIDODRINE HCL 5MG TABLET PO SCH ×3 (08:30→17:41)
[2019-10-04] MEDS: ENOXAPARIN 30MG/0.3ML SYR SUBCUT SCH ×2 (08:30→20:32)
[2019-10-04] MEDS: INSULIN LISPRO 100 UNITS/ML SUBCUT SCH ×4 (08:31→21:00)
[2019-10-04 12:00] VITALS: BP 114/79
[2019-10-04 16:00] VITALS: BP 129/87
[2019-10-04] MEDS: HYDROCORTISONE 10MG TABLET PO SCH (19:42)
[2019-10-04 20:21] VITALS: BP 113/79
[2019-10-05 00:18] VITALS: BP 131/79
[2019-10-05 04:00] VITALS: BP 106/79
[2019-10-05] MEDS: HYDROCODONE/ACETAMINOPHEN 10/325MG TABLET PO PRN ×3 (05:35→18:07)
[2019-10-05] MEDS: BLOOD SUGAR DIAGNOSTIC STRIP TEST SCH ×4 (06:20→20:46)
[2019-10-05 06:43] LABS: CHLORIDE 107 mEq/L (98-107)
[2019-10-05 07:41] LABS: BASOPHILS % 0.6 % (0.0-2.0); EOSINOPHILS % 3.4 % (0.0-5.0); HEMATOCRIT. 34.3 % (42.0-52.0); LYMPHOCYTES % 28.8 % (20.0-50.0); MEAN CORPUSCULAR VOLUME 68.9 fL (80.0-94.0); MONOCYTES % 7.5 % (2.0-8.0); NEUTROPHILS % 59.7 % (40.0-76.0); RED BLOOD CELL COUNT 4.98 mill/uL (4.7-6.1); RED CELL DISTRIBUTION WIDTH 20.4 % (11.6-14.6)
[2019-10-05] MEDS: INSULIN LISPRO 100 UNITS/ML SUBCUT SCH ×4 (07:50→20:46)
[2019-10-05 08:00] VITALS: BP 102/75
[2019-10-05] MEDS: FAMOTIDINE 20MG TABLET PO SCH ×2 (08:52→18:05)
[2019-10-05] MEDS: MAGNESIUM OXIDE 400MG TABLET PO SCH ×2 (08:52→18:05)
[2019-10-05] MEDS: FLUDROCORTISONE ACETATE 0.1MG TABLET PO SCH (08:52)
[2019-10-05] MEDS: MIDODRINE HCL 5MG TABLET PO SCH ×3 (08:53→18:05)
[2019-10-05] MEDS: ENOXAPARIN 30MG/0.3ML SYR SUBCUT SCH ×2 (08:54→20:41)
[2019-10-05 11:07] LABS: MEAN PLATELET VOLUME 10.5 fl (7.4-10.4); PLATELET 229 x1000/uL (130-400)
[2019-10-05 11:47] VITALS: BP 109/74
[2019-10-05] MEDS: ALPRAZOLAM 0.5 MG TABLET PO PRN (14:41)
[2019-10-05 16:00] VITALS: BP 113/80
[2019-10-05] MEDS: HYDROCORTISONE 10MG TABLET PO SCH (18:05)
[2019-10-05 20:00] VITALS: BP 130/84
[2019-10-05] MEDS: POLYVINYL ALCOHOL OPHTH DROPS 15ML RIGHTEYE PRN (20:40)
[2019-10-05] MEDS: HYDROCODONE/ACETAMINOPHEN 5/325MG TABLET PO PRN (23:40)
[2019-10-06] VITALS: BP 121/77
[2019-10-06 04:00] VITALS: BP 112/82
[2019-10-06] MEDS: HYDROCODONE/ACETAMINOPHEN 5/325MG TABLET PO PRN ×4 (05:47→23:16)
[2019-10-06] MEDS: BLOOD SUGAR DIAGNOSTIC STRIP TEST SCH ×4 (06:33→20:07)
[2019-10-06] MEDS: INSULIN LISPRO 100 UNITS/ML SUBCUT SCH ×4 (07:50→20:07)
[2019-10-06 08:00] VITALS: BP 134/106
[2019-10-06] MEDS: MAGNESIUM OXIDE 400MG TABLET PO SCH ×2 (09:58→17:52)
[2019-10-06] MEDS: FLUDROCORTISONE ACETATE 0.1MG TABLET PO SCH (09:58)
[2019-10-06] MEDS: FAMOTIDINE 20MG TABLET PO SCH ×2 (09:58→17:52)
[2019-10-06] MEDS: ENOXAPARIN 30MG/0.3ML SYR SUBCUT SCH ×2 (10:02→20:03)
[2019-10-06] MEDS: MIDODRINE HCL 5MG TABLET PO SCH ×3 (10:19→17:52)
[2019-10-06 12:00] VITALS: BP 104/73
[2019-10-06] MEDS ORDERED: MIDODRINE HCL 5MG TABLET PO SCH (13:00)
[2019-10-06 16:00] VITALS: BP 101/70
[2019-10-06] MEDS: HYDROCORTISONE 10MG TABLET PO SCH (18:45)
[2019-10-06 20:00] VITALS: BP 90/62
[2019-10-07] VITALS: BP_SYST 100; BP_SYST 96; BP_DIAS 70; BP_DIAS 73
[2019-10-07] MEDS: ALPRAZOLAM 0.5 MG TABLET PO PRN ×2 (03:46→21:00)
[2019-10-07 04:00] VITALS: BP 108/75
[2019-10-07] MEDS: HYDROCODONE/ACETAMINOPHEN 5/325MG TABLET PO PRN ×3 (05:29→18:08)
[2019-10-07] MEDS: BLOOD SUGAR DIAGNOSTIC STRIP TEST SCH ×4 (06:40→21:00)
[2019-10-07] MEDS: INSULIN LISPRO 100 UNITS/ML SUBCUT SCH ×4 (07:50→21:02)
[2019-10-07 08:00] VITALS: BP 109/81
[2019-10-07] MEDS: MAGNESIUM OXIDE 400MG TABLET PO SCH ×2 (08:37→17:22)
[2019-10-07] MEDS: FLUDROCORTISONE ACETATE 0.1MG TABLET PO SCH (08:37)
[2019-10-07] MEDS: FAMOTIDINE 20MG TABLET PO SCH ×2 (08:37→17:21)
[2019-10-07] MEDS: MIDODRINE HCL 5MG TABLET PO SCH ×3 (08:39→17:22)
[2019-10-07] MEDS: ENOXAPARIN 30MG/0.3ML SYR SUBCUT SCH ×2 (08:39→20:50)
[2019-10-07 12:00] VITALS: BP 109/74
[2019-10-07 16:00] VITALS: BP 101/67
[2019-10-07] MEDS: POLYVINYL ALCOHOL OPHTH DROPS 15ML RIGHTEYE PRN (18:08)
[2019-10-07] MEDS: HYDROCORTISONE 10MG TABLET PO SCH (19:01)
[2019-10-07 20:00] VITALS: BP 105/70
[2019-10-08] VITALS: BP 113/76
[2019-10-08] MEDS: HYDROCODONE/ACETAMINOPHEN 5/325MG TABLET PO PRN ×4 (00:14→19:06)
[2019-10-08 04:00] VITALS: BP 101/73
[2019-10-08] MEDS: BLOOD SUGAR DIAGNOSTIC STRIP TEST SCH ×4 (06:49→21:15)
[2019-10-08] MEDS: INSULIN LISPRO 100 UNITS/ML SUBCUT SCH ×4 (07:50→21:00)
[2019-10-08 08:00] VITALS: BP 122/52
[2019-10-08] MEDS: MAGNESIUM OXIDE 400MG TABLET PO SCH ×2 (09:33→17:32)
[2019-10-08] MEDS: FAMOTIDINE 20MG TABLET PO SCH ×2 (09:33→17:36)
[2019-10-08] MEDS: FLUDROCORTISONE ACETATE 0.1MG TABLET PO SCH (09:33)
[2019-10-08] MEDS: ENOXAPARIN 30MG/0.3ML SYR SUBCUT SCH ×2 (09:34→20:19)
[2019-10-08] MEDS: MIDODRINE HCL 5MG TABLET PO SCH ×3 (09:35→17:34)
[2019-10-08] MEDS: ALPRAZOLAM 0.5 MG TABLET PO PRN ×2 (09:35→22:11)
[2019-10-08 12:00] VITALS: BP 96/71
[2019-10-08] MEDS: HYDROCORTISONE 10MG TABLET PO SCH (17:32)
[2019-10-08 20:00] VITALS: BP 107/76
[2019-10-09] VITALS: BP 98/65
[2019-10-09 04:00] VITALS: BP 103/70
[2019-10-09] MEDS: HYDROCODONE/ACETAMINOPHEN 5/325MG TABLET PO PRN ×4 (04:02→22:20)
[2019-10-09] MEDS: BLOOD SUGAR DIAGNOSTIC STRIP TEST SCH ×4 (06:56→20:26)
[2019-10-09] MEDS: INSULIN LISPRO 100 UNITS/ML SUBCUT SCH ×4 (07:50→20:26)
[2019-10-09 08:00] VITALS: BP 106/69
[2019-10-09] MEDS: FAMOTIDINE 20MG TABLET PO SCH ×2 (09:25→16:18)
[2019-10-09] MEDS: MAGNESIUM OXIDE 400MG TABLET PO SCH ×2 (09:25→16:18)
[2019-10-09] MEDS: FLUDROCORTISONE ACETATE 0.1MG TABLET PO SCH (09:25)
[2019-10-09] MEDS: MIDODRINE HCL 5MG TABLET PO SCH ×3 (09:26→16:25)
[2019-10-09] MEDS: ENOXAPARIN 30MG/0.3ML SYR SUBCUT SCH ×2 (09:31→20:33)
[2019-10-09 12:00] VITALS: BP 97/66
[2019-10-09] MEDS: MAGNESIUM/ALUMINUM HYDROXIDE/SIMETHICONE 30ML UDC PO PRN (14:39)
[2019-10-09] MEDS: HYDROCORTISONE 10MG TABLET PO SCH (18:37)
[2019-10-09 20:00] VITALS: BP 114/79
[2019-10-10] VITALS: BP 112/72
[2019-10-10 04:00] VITALS: BP 112/80
[2019-10-10] MEDS: HYDROCODONE/ACETAMINOPHEN 5/325MG TABLET PO PRN ×4 (04:23→20:57)
[2019-10-10 08:00] VITALS: BP 99/67
[2019-10-10] MEDS: ENOXAPARIN 30MG/0.3ML SYR SUBCUT SCH ×2 (09:10→22:14)
[2019-10-10] MEDS: FLUDROCORTISONE ACETATE 0.1MG TABLET PO SCH (09:11)
[2019-10-10] MEDS: FAMOTIDINE 20MG TABLET PO SCH ×2 (09:11→16:43)
[2019-10-10] MEDS: MAGNESIUM OXIDE 400MG TABLET PO SCH (09:11)
[2019-10-10] MEDS: MIDODRINE HCL 5MG TABLET PO SCH ×3 (09:12→16:44)
[2019-10-10 12:00] VITALS: BP 101/70
[2019-10-10 16:00] VITALS: BP 114/79
[2019-10-10] MEDS: CARBAMIDE PEROXIDE 6.5% OTIC SOLN 15ML EACH EAR SCH (18:30)
[2019-10-10] MEDS ORDERED: DEXTROSE 50% WATER 50ML SYRINGE IV PRN (18:30)
[2019-10-10] MEDS: HYDROCORTISONE 10MG TABLET PO SCH (18:56)
[2019-10-10 20:00] VITALS: BP 110/75
[2019-10-10] MEDS: INSULIN LISPRO 100 UNITS/ML SUBCUT SCH (21:00)
[2019-10-10] MEDS: BLOOD SUGAR DIAGNOSTIC STRIP TEST SCH (21:00)
[2019-10-11] MEDS: HYDROCODONE/ACETAMINOPHEN 5/325MG TABLET PO PRN ×4 (03:26→21:20)
[2019-10-11 04:00] VITALS: BP 106/77
[2019-10-11] MEDS: BLOOD SUGAR DIAGNOSTIC STRIP TEST SCH ×4 (06:50→21:21)
[2019-10-11 08:20] VITALS: BP 112/84
[2019-10-11] MEDS: MIDODRINE HCL 5MG TABLET PO SCH ×3 (09:00→17:00)
[2019-10-11] MEDS: CARBAMIDE PEROXIDE 6.5% OTIC SOLN 15ML EACH EAR SCH ×3 (09:00→17:00)
[2019-10-11] MEDS: FLUDROCORTISONE ACETATE 0.1MG TABLET PO SCH (09:00)
[2019-10-11] MEDS: ENOXAPARIN 30MG/0.3ML SYR SUBCUT SCH ×2 (09:00→20:17)
[2019-10-11] MEDS: FAMOTIDINE 20MG TABLET PO SCH ×2 (09:00→17:00)
[2019-10-11 12:05] VITALS: BP 94/66
[2019-10-11] MEDS: ALPRAZOLAM 0.5 MG TABLET PO PRN ×2 (16:00→23:49)
[2019-10-11 16:47] VITALS: BP 113/75
[2019-10-11 20:00] VITALS: BP 92/64
[2019-10-11] MEDS: HYDROCORTISONE 10MG TABLET PO SCH (20:16)
[2019-10-11] MEDS: INSULIN LISPRO 100 UNITS/ML SUBCUT SCH (21:00)
[2019-10-11] MEDS: MAGNESIUM/ALUMINUM HYDROXIDE/SIMETHICONE 30ML UDC PO PRN (23:51)
[2019-10-12] VITALS (7 sets, daily range): BP systolic 95–111; BP diastolic 64–75
[2019-10-12] MEDS: BLOOD SUGAR DIAGNOSTIC STRIP TEST SCH ×4 (06:56→21:25)
[2019-10-12 07:15] LABS: HEMATOCRIT 32.9 % (42.0-52.0); HEMOGLOBIN 10.6 g/dL (14.0-18.0); MEAN CORPUSCULAR VOLUME 68.4 fL (80.0-94.0); PLATELET 235 x1000/uL (130-400); RED BLOOD CELL COUNT 4.81 mill/uL (4.7-6.1); RED CELL DISTRIBUTION WIDTH 19.8 % (11.6-14.6)
[2019-10-12 07:36] LABS: CHLORIDE 104 mEq/L (98-107)
[2019-10-12] MEDS: INSULIN LISPRO 100 UNITS/ML SUBCUT SCH ×4 (07:50→21:00)
[2019-10-12] MEDS: ENOXAPARIN 30MG/0.3ML SYR SUBCUT SCH ×2 (09:17→21:25)
[2019-10-12] MEDS: FAMOTIDINE 20MG TABLET PO SCH ×2 (09:18→16:29)
[2019-10-12] MEDS: MIDODRINE HCL 5MG TABLET PO SCH ×3 (09:18→16:29)
[2019-10-12] MEDS: FLUDROCORTISONE ACETATE 0.1MG TABLET PO SCH (09:18)
[2019-10-12] MEDS: HYDROCODONE/ACETAMINOPHEN 5/325MG TABLET PO PRN ×3 (09:18→23:01)
[2019-10-12] MEDS: CARBAMIDE PEROXIDE 6.5% OTIC SOLN 15ML EACH EAR SCH ×3 (09:19→16:45)
[2019-10-12] MEDS: ALPRAZOLAM 0.5 MG TABLET PO PRN (13:40)
[2019-10-12] MEDS: HYDROCORTISONE 10MG TABLET PO SCH (18:53)
[2019-10-13] VITALS: BP 105/70
[2019-10-13 04:00] VITALS: BP 102/73
[2019-10-13] MEDS: MAGNESIUM/ALUMINUM HYDROXIDE/SIMETHICONE 30ML UDC PO PRN (05:36)
[2019-10-13] MEDS: HYDROCODONE/ACETAMINOPHEN 5/325MG TABLET PO PRN ×2 (05:56→13:02)
[2019-10-13] MEDS: BLOOD SUGAR DIAGNOSTIC STRIP TEST SCH ×2 (07:20→11:39)
[2019-10-13] MEDS: INSULIN LISPRO 100 UNITS/ML SUBCUT SCH ×2 (07:50→12:36)
[2019-10-13 08:00] VITALS: BP 95/70
[2019-10-13] MEDS: CARBAMIDE PEROXIDE 6.5% OTIC SOLN 15ML EACH EAR SCH ×2 (08:15→13:03)
[2019-10-13] MEDS: ENOXAPARIN 30MG/0.3ML SYR SUBCUT SCH (08:16)
[2019-10-13] MEDS: FAMOTIDINE 20MG TABLET PO SCH (08:16)
[2019-10-13] MEDS: MIDODRINE HCL 5MG TABLET PO SCH ×2 (08:20→13:03)
[2019-10-13] MEDS: FLUDROCORTISONE ACETATE 0.1MG TABLET PO SCH (08:20)
[2019-10-13 12:00] VITALS: BP 97/75
[2019-10-13 15:08] VITALS: BP 97/75
== END 2019-10-13 15:54 | DRG 853 ==
LOC: ER 10:23 → 5EST 12:24 → ENRESERV 21:16 → 5EST 08-13 11:45 → 3WST 08-25 10:30 → 6WST 08-27 01:03 → 6EST 09-04 14:58 → 6WST 09-06 01:57 → 6EST 09-16 15:13
PROVIDERS: ADMIT Internal Medicine; ATTEND Internal Medicine
PROC: 0QB00ZZ Excision of Lumbar Vertebra, Open Approach (ICD-10-PCS; principal; 2019-08-17)
PROC: 0QB10ZZ Excision of Sacrum, Open Approach (ICD-10-PCS; 2019-08-17)
PROC: 0QB00ZZ Excision of Lumbar Vertebra, Open Approach (ICD-10-PCS; 2019-08-29)
PROC: 0JB70ZZ Excision of Back Subcutaneous Tissue and Fascia, Open Approach (ICD-10-PCS; 2019-08-29)
DX: A41.51 Sepsis due to Escherichia coli [E. coli] (principal); L89.104 Pressure ulcer of unspecified part of back, stage 4; L89.153 Pressure ulcer of sacral region, stage 3; G93.41 Metabolic encephalopathy; E43 Unspecified severe protein-calorie malnutrition; N39.0 Urinary tract infection, site not specified; C85.90 Non-Hodgkin lymphoma, unspecified, unspecified site; E27.1 Primary adrenocortical insufficiency; M86.9 Osteomyelitis, unspecified; Z16.12 Extended spectrum beta lactamase (ESBL) resistance; T79.7XXA Traumatic subcutaneous emphysema, initial encounter; D64.9 Anemia, unspecified; R19.7 Diarrhea, unspecified; K62.89 Other specified diseases of anus and rectum; K80.20 Calculus of gallbladder without cholecystitis without obstruction; E11.69 Type 2 diabetes mellitus with other specified complication; E83.39 Other disorders of phosphorus metabolism; E83.42 Hypomagnesemia; E87.6 Hypokalemia; F29 Unspecified psychosis not due to a substance or known physiological condition; E87.8 Other disorders of electrolyte and fluid balance, not elsewhere classified; X58.XXXA Exposure to other specified factors, initial encounter; Z20.828 Contact with and (suspected) exposure to other viral communicable diseases; Z68.37 Body mass index [BMI] 37.0-37.9, adult; Z79.891 Long term (current) use of opiate analgesic; Z74.01 Bed confinement status; Z75.1 Person awaiting admission to adequate facility elsewhere; Z86.718 Personal history of other venous thrombosis and embolism; Z95.828 Presence of other vascular implants and grafts; Z85.71 Personal history of Hodgkin lymphoma; Z79.899 Other long term (current) drug therapy; Y93.89 Activity, other specified; Y92.89 Other specified places as the place of occurrence of the external cause; Y99.8 Other external cause status
CPT/HCPCS: 36415; 71045; 73620; 74176; 80048; 80053; 81003; 82024; 82040; 82533; 82962; 83036; 83605; 83735; 83880; 84100; 84134; 84145; 84439; 84443; 84484; 85025; 85027; 85651; 86140; 87077; 87186; 87635; 92610; 93005; 93923; 93970; 97110; 97162; 97164; 97166; 97168; 97530; 97535; 99291; J1200; J1630; J1650; J1720; J1815; J1885; J1956; J2060; J2185; J2405; J3010; J3475; J3480; J3490; J7030; J7050; J7060; U0003-CS

== ENCOUNTER 2019-11-20 10:26 | Inpatient (IN) | payer BC, MEDICAID ==
[~2019-11-20] VITALS: Ht 180.3 cm; Wt 108.9 kg
[2019-11-20] VITALS (7 sets, daily range): BP systolic 62–141; BP diastolic 18–84
[2019-11-20] MEDS ORDERED: VANCOMYCIN 1 G PREMIX 200 ML IV ONE (11:00)
[2019-11-20] MEDS ORDERED: SODIUM CHLORIDE 0.9% 1000ML BAG (SEPSIS BOLUS) IV ONE (11:00)
[2019-11-20] MEDS ORDERED: PIPERACILLIN/TAZ 3.375G PREMIX 50 ML IV ONE (11:00)
[2019-11-20 11:03] LABS: HEMATOCRIT. 29.7 % (42.0-52.0); HEMOGLOBIN. 9.6 g/dL (14.0-18.0); MEAN CORPUSCULAR HEMOGLOBIN 21.9 pg (28.0-32.0); MEAN CORPUSCULAR VOLUME 67.7 fL (80.0-94.0); MEAN PLATELET VOLUME 10.2 fl (7.4-10.4); PLATELET 226 x1000/uL (130-400); RED BLOOD CELL COUNT 4.39 mill/uL (4.7-6.1); RED CELL DISTRIBUTION WIDTH 15.9 % (11.6-14.6)
[2019-11-20 11:07] LABS: CHLORIDE 103 mEq/L (98-107)
[2019-11-20] MEDS ORDERED: MEROPENEM 1,000 MG in SODIUM CHLORIDE 0.9% 100 ML IV STA (11:10)
[2019-11-20 11:11] LABS: PARTIAL THROMBOPLASTIN TIME 33.5 sec (23.4-31.0); PROTHROMBIN TIME 10.9 sec (9.6-11.0)
[2019-11-20 11:40] LABS: PLATELET ESTIMATE NORMAL
[2019-11-20 11:53] LABS: BG BASE EXCESS -6.1 mmol/L (-2.0-2.0); BG CARBOXYHEMOGLOBIN 0.3 % (0.5-1.5); BG DEOXYHEMOGLOBIN 5.3 % (0.0-5.0); BG FRACTION INSPIRED OXYGEN 24; BG METHEMOGLOBIN 0.2 % (0.0-1.5); BG OXYGEN SATURATION 94.7 % (92.0-98.5); BG OXYHEMOGLOBIN 94.2 % (94.0-97.0); BG PH 7.395 (7.350-7.450); BG PO2 81.2 mmHg (75.0-100.0); BG SAMPLE SITE LEFT BRACHIAL; BG TOTAL HEMOGLOBIN 9.2 g/dL (12.0-18.0); BG VENT MODE NASAL CANNULA
[2019-11-20] MEDS ORDERED: METRONIDAZOLE 500 MG PREMIX 100 ML IV ONE (12:15)
[2019-11-20 12:29] LABS: HEPATITIS B SURFACE ANTIGEN NEGATIVE
[2019-11-20] MEDS ORDERED: NOREPINEPHRINE 4 MG in DEXT 5% WATER 246 ML IV ONE ×2 (12:30→18:30)
[2019-11-20] MEDS ORDERED: NOREPINEPHRINE 4MG/250ML PMX 250 ML IV ONE (12:35)
[2019-11-20 12:43] LABS: CLARITY URINE TURBID (CLEAR); COLOR URINE YELLOW (YELLOW); KETONES URINE NEGATIVE (NEGATIVE); LEUKOCYTE ESTERASE URINE 3+ (NEGATIVE); NITRITE URINE NEGATIVE (NEGATIVE); OCCULT BLOOD URINE 2+ (NEGATIVE); PROTEIN URINE 3+ (NEGATIVE); SPECIFIC GRAVITY URINE 1.013 (1.005-1.030); UROBILINOGEN URINE 0.2 E.U./dL (0.2-1.0)
[2019-11-20 12:59] LABS: HEPATITIS A AB IGM NEGATIVE (NEGATIVE)
[2019-11-20] MEDS ORDERED: DEXTROSE 50% WATER 50ML SYRINGE IV PRN (18:15)
[2019-11-20] MEDS ORDERED: ONDANSETRON HCL 4MG/2ML INJ IV PRN (18:15)
[2019-11-20] MEDS ORDERED: NOREPINEPHRINE 8 MG in DEXT 5% WATER 242 ML IV PRN (18:15)
[2019-11-20] MEDS ORDERED: ALPRAZOLAM 0.5 MG TABLET PO PRN (18:15)
[2019-11-20] MEDS: BLOOD SUGAR DIAGNOSTIC STRIP TEST SCH (18:32)
[2019-11-20] MEDS: INSULIN LISPRO 100 UNITS/ML SUBCUT SCH (20:03)
[2019-11-20] MEDS: NOREPINEPHRINE 8 MG in DEXT 5% WATER 242 ML IV PRN ×2 (23:00→23:57)
[2019-11-20] MEDS: FAMOTIDINE 20MG TABLET PO SCH (23:54)
[2019-11-20] MEDS: GABAPENTIN 100MG CAPSULE PO SCH (23:54)
[2019-11-20] MEDS: ACETAMINOPHEN 325MG TABLET PO PRN (23:55)
[2019-11-21] VITALS (94 sets, daily range): BP systolic 70–157; BP diastolic 15–103
[2019-11-21] MEDS ORDERED: MEROPENEM 1,000 MG in SODIUM CHLORIDE 0.9% 100 ML IV SCH ×2
[2019-11-21] MEDS: INSULIN GLARGINE UD 100 UNITS/ML SYR SUBCUT SCH ×2 (00:13→23:16)
[2019-11-21] MEDS: DEXT 5%/0.45% NACL 1000ML 1,000 ML IV SCH ×5 (00:15→17:41)
[2019-11-21] MEDS: MEROPENEM 1,000 MG in SODIUM CHLORIDE 0.9% 100 ML IV SCH ×2 (00:16→12:03)
[2019-11-21] MEDS ORDERED: PHENYLEPHRINE 100 MG in DEXT 5% WATER 240 ML IV PRN (01:00)
[2019-11-21 05:42] LABS: BASOPHILS % 0.1 % (0.0-2.0); EOSINOPHILS % 0.1 % (0.0-5.0); HEMOGLOBIN. 10.3 g/dL (14.0-18.0); LYMPHOCYTES % 8.2 % (20.0-50.0); MEAN CORPUSCULAR HEMOGLOBIN 21.4 pg (28.0-32.0); MEAN CORPUSCULAR VOLUME 68.6 fL (80.0-94.0); MEAN PLATELET VOLUME 9.9 fl (7.4-10.4); MONOCYTES % 4.4 % (2.0-8.0); NEUTROPHILS % 87.2 % (40.0-76.0); PLATELET 261 x1000/uL (130-400); RED BLOOD CELL COUNT 4.81 mill/uL (4.7-6.1); RED CELL DISTRIBUTION WIDTH 15.5 % (11.6-14.6)
[2019-11-21 05:48] LABS: CHLORIDE 109 mEq/L (98-107)
[2019-11-21 05:59] LABS: PHOSPHORUS 3.5 mg/dL (2.5-4.9)
[2019-11-21] MEDS: BLOOD SUGAR DIAGNOSTIC STRIP TEST SCH ×4 (06:36→21:41)
[2019-11-21] MEDS: INSULIN LISPRO 100 UNITS/ML SUBCUT SCH ×4 (06:37→21:43)
[2019-11-21] MEDS: GABAPENTIN 100MG CAPSULE PO SCH ×3 (06:38→21:43)
[2019-11-21] MEDS: FAMOTIDINE 20MG TABLET PO SCH (08:51)
[2019-11-21] MEDS: FLUDROCORTISONE ACETATE 0.1MG TABLET PO SCH (08:51)
[2019-11-21] MEDS: FERROUS SULFATE 325MG TABLET PO SCH (08:51)
[2019-11-21] MEDS: ZINC SULFATE 220 MG ( 50 ) CAPSULE PO SCH (08:51)
[2019-11-21] MEDS: ASCORBIC ACID 500 MG TABLET PO SCH (08:52)
[2019-11-21] MEDS: MULTIVITAMINS,THER W-MINERALS TABLET PO SCH (08:52)
[2019-11-21] MEDS ORDERED: MIDODRINE HCL 5MG TABLET PO SCH (09:00)
[2019-11-21] MEDS: HYDROCODONE/APAP 7.5/325MG 1 TAB TABLET PO PRN (10:05)
[2019-11-21] MEDS: MIDODRINE HCL 5MG TABLET PO SCH ×2 (13:08→21:43)
[2019-11-21] MEDS: ACETAMINOPHEN 325MG TABLET PO PRN ×2 (15:35→23:16)
[2019-11-21 17:45] LABS: PLATELET ESTIMATE NORMAL
[2019-11-22] VITALS (94 sets, daily range): BP systolic 68–114; BP diastolic 25–74
[2019-11-22] MEDS: MEROPENEM 1,000 MG in SODIUM CHLORIDE 0.9% 100 ML IV SCH ×3 (00:16→23:16)
[2019-11-22] MEDS: PHENYLEPHRINE 100 MG in DEXT 5% WATER 240 ML IV PRN ×2 (03:07→17:44)
[2019-11-22] MEDS: ACETAMINOPHEN 325MG TABLET PO PRN ×3 (05:24→23:15)
[2019-11-22] MEDS: GABAPENTIN 100MG CAPSULE PO SCH ×3 (05:34→21:11)
[2019-11-22] MEDS: MIDODRINE HCL 5MG TABLET PO SCH ×3 (05:34→21:11)
[2019-11-22 05:54] LABS: HEMATOCRIT. 35.4 % (42.0-52.0); HEMOGLOBIN. 11.1 g/dL (14.0-18.0); MEAN CORPUSCULAR HEMOGLOBIN 21.3 pg (28.0-32.0); MEAN CORPUSCULAR VOLUME 67.7 fL (80.0-94.0); MEAN PLATELET VOLUME 9.7 fl (7.4-10.4); PLATELET 221 x1000/uL (130-400); RED BLOOD CELL COUNT 5.23 mill/uL (4.7-6.1); RED CELL DISTRIBUTION WIDTH 15.8 % (11.6-14.6)
[2019-11-22 06:00] LABS: CHLORIDE 107 mEq/L (98-107)
[2019-11-22 06:07] LABS: PHOSPHORUS 2.6 mg/dL (2.5-4.9)
[2019-11-22 06:10] LABS: CREATINE KINASE 90 IU/L (39-308)
[2019-11-22] MEDS: BLOOD SUGAR DIAGNOSTIC STRIP TEST SCH ×4 (08:33→20:23)
[2019-11-22] MEDS: FAMOTIDINE 20MG TABLET PO SCH (08:41)
[2019-11-22] MEDS: ASCORBIC ACID 500 MG TABLET PO SCH (08:41)
[2019-11-22] MEDS: INSULIN LISPRO 100 UNITS/ML SUBCUT SCH ×4 (08:41→21:12)
[2019-11-22] MEDS: FERROUS SULFATE 325MG TABLET PO SCH (08:41)
[2019-11-22] MEDS: MULTIVITAMINS,THER W-MINERALS TABLET PO SCH (08:41)
[2019-11-22] MEDS: ZINC SULFATE 220 MG ( 50 ) CAPSULE PO SCH (08:41)
[2019-11-22] MEDS: FLUDROCORTISONE ACETATE 0.1MG TABLET PO SCH (08:41)
[2019-11-22] MEDS ORDERED: POTASSIUM CHLORIDE 20MEQ TABLET SR PO SCH (09:15)
[2019-11-22] MEDS: HYDROCODONE/APAP 7.5/325MG 1 TAB TABLET PO PRN ×2 (09:41→20:22)
[2019-11-22] MEDS: DEXT 5%/0.45% NACL 1000ML 1,000 ML IV SCH ×2 (09:52→17:43)
[2019-11-22 13:34] LABS: PLATELET ESTIMATE NORMAL
[2019-11-22] MEDS ORDERED: POTASSIUM CHLORIDE 20MEQ TABLET SR PO NR (18:00)
[2019-11-22] MEDS: INSULIN GLARGINE UD 100 UNITS/ML SYR SUBCUT SCH (23:15)
[2019-11-23] VITALS (120 sets, daily range): BP systolic 62–145; BP diastolic 23–98
[2019-11-23] MEDS: PHENYLEPHRINE 100 MG in DEXT 5% WATER 240 ML IV PRN ×5 (00:44→20:35)
[2019-11-23] MEDS: DEXT 5%/0.45% NACL 1000ML 1,000 ML IV SCH ×2 (01:24→08:26)
[2019-11-23] MEDS: GABAPENTIN 100MG CAPSULE PO SCH ×3 (05:00→21:42)
[2019-11-23] MEDS: MIDODRINE HCL 5MG TABLET PO SCH ×3 (05:00→21:42)
[2019-11-23 05:32] LABS: BG BASE EXCESS -7.4 mmol/L (-2.0-2.0); BG CARBOXYHEMOGLOBIN 0.4 % (0.5-1.5); BG DEOXYHEMOGLOBIN 4.3 % (0.0-5.0); BG FRACTION INSPIRED OXYGEN 28; BG HCO3 ACT 17.1 mmol/L (22.0-26.0); BG METHEMOGLOBIN 0.4 % (0.0-1.5); BG OXYGEN SATURATION 95.7 % (92.0-98.5); BG OXYHEMOGLOBIN 94.9 % (94.0-97.0); BG PCO2 31.4 mmHg (35.0-45.0); BG PH 7.354 (7.350-7.450); BG PO2 83.2 mmHg (75.0-100.0); BG SAMPLE SITE RIGHT RADIAL; BG TOTAL HEMOGLOBIN 11.8 g/dL (12.0-18.0); BG VENT MODE NASAL CANNULA
[2019-11-23] MEDS: NOREPINEPHRINE 8 MG in DEXT 5% WATER 242 ML IV PRN (06:19)
[2019-11-23 06:31] LABS: HEMATOCRIT. 36.8 % (42.0-52.0); HEMOGLOBIN. 11.6 g/dL (14.0-18.0); MEAN CORPUSCULAR HEMOGLOBIN 21.4 pg (28.0-32.0); MEAN CORPUSCULAR VOLUME 67.8 fL (80.0-94.0); MEAN PLATELET VOLUME 10.2 fl (7.4-10.4); PLATELET 238 x1000/uL (130-400); RED BLOOD CELL COUNT 5.42 mill/uL (4.7-6.1); RED CELL DISTRIBUTION WIDTH 15.7 % (11.6-14.6)
[2019-11-23 06:53] LABS: CHLORIDE 104 mEq/L (98-107)
[2019-11-23] MEDS: BLOOD SUGAR DIAGNOSTIC STRIP TEST SCH ×4 (07:47→21:11)
[2019-11-23] MEDS: INSULIN LISPRO 100 UNITS/ML SUBCUT SCH ×4 (08:26→21:00)
[2019-11-23] MEDS: DEXT 5%/0.9% NACL 1,000 ML IV SCH ×2 (08:46→22:57)
[2019-11-23] MEDS: FLUDROCORTISONE ACETATE 0.1MG TABLET PO SCH (08:51)
[2019-11-23] MEDS: FERROUS SULFATE 325MG TABLET PO SCH (08:51)
[2019-11-23] MEDS: ASCORBIC ACID 500 MG TABLET PO SCH (08:51)
[2019-11-23] MEDS: MULTIVITAMINS,THER W-MINERALS TABLET PO SCH (08:51)
[2019-11-23] MEDS: FAMOTIDINE 20MG TABLET PO SCH (08:51)
[2019-11-23] MEDS: ZINC SULFATE 220 MG ( 50 ) CAPSULE PO SCH (08:51)
[2019-11-23] MEDS: MAGNESIUM HYDROXIDE 400MG/5ML 30ML UDC PO PRN (08:51)
[2019-11-23 09:56] LABS: PLATELET ESTIMATE NORMAL
[2019-11-23] MEDS: MEROPENEM 1,000 MG in SODIUM CHLORIDE 0.9% 100 ML IV SCH ×2 (11:12→21:42)
[2019-11-23] MEDS: NOREPINEPHRINE 32 MG in DEXT 5% WATER 218 ML IV PRN (13:00)
[2019-11-23] MEDS ORDERED: DIATR MEGLU/DIATRIZOATE SOLN 30ML PO NR (14:00)
[2019-11-23] MEDS ORDERED: VANCOMYCIN 1500MG in DEXTROSE 5% WATER 250ML IV SCH (15:00)
[2019-11-23 15:44] LABS: CLARITY URINE TURBID (CLEAR); COLOR URINE DARK YELLOW (YELLOW); KETONES URINE NEGATIVE (NEGATIVE); LEUKOCYTE ESTERASE URINE 3+ (NEGATIVE); NITRITE URINE NEGATIVE (NEGATIVE); OCCULT BLOOD URINE 2+ (NEGATIVE); PROTEIN URINE 2+ (NEGATIVE); SPECIFIC GRAVITY URINE 1.021 (1.005-1.030); UROBILINOGEN URINE 0.2 E.U./dL (0.2-1.0)
[2019-11-23] MEDS: VANCOMYCIN HCL 1000 MG/20 ML ORAL PO SCH (18:12)
[2019-11-23 19:47] LABS: BG BASE EXCESS -8.3 mmol/L (-2.0-2.0); BG CARBOXYHEMOGLOBIN 0.3 % (0.5-1.5); BG DEOXYHEMOGLOBIN 13.9 % (0.0-5.0); BG FRACTION INSPIRED OXYGEN 44; BG HCO3 ACT 17.4 mmol/L (22.0-26.0); BG METHEMOGLOBIN 0.1 % (0.0-1.5); BG OXYHEMOGLOBIN 85.7 % (94.0-97.0); BG PCO2 36.6 mmHg (35.0-45.0); BG PH 7.295 (7.350-7.450); BG PO2 53.4 mmHg (75.0-100.0); BG SAMPLE SITE RIGHT BRACHIAL; BG TOTAL HEMOGLOBIN 11.8 g/dL (12.0-18.0); BG VENT MODE NASAL CANNULA
[2019-11-23] MEDS ORDERED: SUCCINYLCHOLINE CHLORIDE 200MG/10ML IV ONE (20:14)
[2019-11-23] MEDS ORDERED: SODIUM CHLORIDE 0.9% 10ML VIAL ONE (20:14)
[2019-11-23] MEDS ORDERED: ETOMIDATE 2MG/ML 10ML VIAL IV ONE (20:14)
[2019-11-23 20:57] LABS: BG BASE EXCESS -8.3 mmol/L (-2.0-2.0); BG CARBOXYHEMOGLOBIN 0.1 % (0.5-1.5); BG DEOXYHEMOGLOBIN 1.1 % (0.0-5.0); BG FRACTION INSPIRED OXYGEN 100; BG HCO3 ACT 17.8 mmol/L (22.0-26.0); BG METHEMOGLOBIN 0.2 % (0.0-1.5); BG OXYGEN SATURATION 98.9 % (92.0-98.5); BG OXYHEMOGLOBIN 98.6 % (94.0-97.0); BG PH 7.278 (7.350-7.450); BG PO2 170.3 mmHg (75.0-100.0); BG SAMPLE SITE RIGHT BRACHIAL; BG TIDAL VOLUME(mL) 500 mL; BG TOTAL HEMOGLOBIN 12.8 g/dL (12.0-18.0); BG VENT MODE VENT - A/C; BG VENT RATE 16 set
[2019-11-23] MEDS ORDERED: SODIUM BICARBONATE 8.4% 1 MEQ/ML 50ML SYR IV NR ×2 (21:15)
[2019-11-23] MEDS ORDERED: MIDAZOLAM HCL 100 MG in DEXT 5% WATER 80 ML IV PRN (21:15)
[2019-11-23] MEDS: INSULIN GLARGINE UD 100 UNITS/ML SYR SUBCUT SCH (21:43)
[2019-11-23] MEDS: FENTANYL CITRATE/PF 1,000 MCG in SODIUM CHLORIDE 0.9% 80 ML IV PRN (22:52)
[2019-11-23] MEDS: ACETAMINOPHEN 325MG TABLET PO PRN (23:30)
[2019-11-24] VITALS (95 sets, daily range): BP systolic 61–137; BP diastolic 36–83
[2019-11-24] MEDS: DILTIAZEM HCL 125 MG in DEXT 5% WATER 100 ML IV PRN ×2 (01:14→23:06)
[2019-11-24] MEDS: VANCOMYCIN HCL 1000 MG/20 ML ORAL PO SCH ×5 (01:33→23:44)
[2019-11-24] MEDS ORDERED: VANCOMYCIN 1 G PREMIX 200 ML IV SCH (02:00)
[2019-11-24] MEDS: PHENYLEPHRINE 100 MG in DEXT 5% WATER 240 ML IV PRN ×2 (02:33→07:54)
[2019-11-24] MEDS: MIDODRINE HCL 5MG TABLET PO SCH ×3 (05:06→21:00)
[2019-11-24] MEDS: GABAPENTIN 100MG CAPSULE PO SCH ×3 (05:06→20:59)
[2019-11-24] MEDS: MEROPENEM 1,000 MG in SODIUM CHLORIDE 0.9% 100 ML IV SCH ×3 (05:06→21:00)
[2019-11-24 07:13] LABS: HEMATOCRIT. 33.5 % (42.0-52.0); HEMOGLOBIN. 10.7 g/dL (14.0-18.0); MEAN CORPUSCULAR HEMOGLOBIN 21.3 pg (28.0-32.0); MEAN PLATELET VOLUME 9.7 fl (7.4-10.4); PLATELET 305 x1000/uL (130-400); RED BLOOD CELL COUNT 5.01 mill/uL (4.7-6.1); RED CELL DISTRIBUTION WIDTH 16.1 % (11.6-14.6)
[2019-11-24 07:18] LABS: PHOSPHORUS 2.3 mg/dL (2.5-4.9)
[2019-11-24] MEDS: INSULIN LISPRO 100 UNITS/ML SUBCUT SCH ×4 (07:35→21:00)
[2019-11-24] MEDS: BLOOD SUGAR DIAGNOSTIC STRIP TEST SCH ×4 (07:35→21:11)
[2019-11-24] MEDS: NOREPINEPHRINE 32 MG in DEXT 5% WATER 218 ML IV PRN (07:53)
[2019-11-24] MEDS: FAMOTIDINE 20MG TABLET PO SCH (08:15)
[2019-11-24] MEDS: FLUDROCORTISONE ACETATE 0.1MG TABLET PO SCH (08:15)
[2019-11-24] MEDS: FERROUS SULFATE 325MG TABLET PO SCH (08:15)
[2019-11-24] MEDS: MULTIVITAMINS,THER W-MINERALS TABLET PO SCH (08:15)
[2019-11-24] MEDS: ZINC SULFATE 220 MG ( 50 ) CAPSULE PO SCH (08:15)
[2019-11-24] MEDS: ASCORBIC ACID 500 MG TABLET PO SCH (08:15)
[2019-11-24] MEDS: MAGNESIUM HYDROXIDE 400MG/5ML 30ML UDC PO PRN (08:15)
[2019-11-24] MEDS ORDERED: ALBUMIN HUMAN 25GM/100ML (25%) IV NR (08:30)
[2019-11-24 09:27] LABS: BG BASE EXCESS -8.2 mmol/L (-2.0-2.0); BG CARBOXYHEMOGLOBIN 0.3 % (0.5-1.5); BG DEOXYHEMOGLOBIN 1.1 % (0.0-5.0); BG FRACTION INSPIRED OXYGEN 80; BG HCO3 ACT 16.5 mmol/L (22.0-26.0); BG METHEMOGLOBIN 0.3 % (0.0-1.5); BG OXYGEN SATURATION 98.9 % (92.0-98.5); BG OXYHEMOGLOBIN 98.3 % (94.0-97.0); BG PCO2 31.5 mmHg (35.0-45.0); BG PH 7.338 (7.350-7.450); BG PO2 185.7 mmHg (75.0-100.0); BG SAMPLE SITE RIGHT RADIAL; BG TIDAL VOLUME(mL) 500 mL; BG TOTAL HEMOGLOBIN 11.2 g/dL (12.0-18.0); BG VENT MODE VENT - A/C; BG VENT RATE 20 set
[2019-11-24] MEDS ORDERED: POTASSIUM PHOS,M-BASIC-D-BASIC 15 MMOL in DEXT 5% WATER 245 ML IV NR (10:00)
[2019-11-24 10:34] LABS: PLATELET ESTIMATE NORMAL
[2019-11-24] MEDS ORDERED: POTASSIUM CHLORIDE INJ 40 MEQ in DEXT 5% WATER 250 ML IV NR (12:00)
[2019-11-24] MEDS ORDERED: LIDOCAINE HCL 1% 20ML VIAL (Pyxis) INJ INFIL NR (15:00)
[2019-11-24] MEDS: DEXT 5%/0.9% NACL 1,000 ML IV SCH ×2 (16:58→23:45)
[2019-11-24] MEDS: VANCOMYCIN 750 MG PREMIX 150 ML IV SCH (17:27)
[2019-11-24] MEDS: ACETAMINOPHEN 325MG TABLET PO PRN (21:17)
[2019-11-24] MEDS: FENTANYL CITRATE/PF 1,000 MCG in SODIUM CHLORIDE 0.9% 80 ML IV PRN (23:36)
[2019-11-25] VITALS (90 sets, daily range): BP systolic 65–138; BP diastolic 32–92
[2019-11-25] MEDS: NOREPINEPHRINE 32 MG in DEXT 5% WATER 218 ML IV PRN (01:06)
[2019-11-25] MEDS: PHENYLEPHRINE 100 MG in DEXT 5% WATER 240 ML IV PRN (01:06)
[2019-11-25] MEDS: HYDROCORTISONE SOD SUCCINATE 100 MG/2 ML VIAL IV SCH ×3 (01:23→16:48)
[2019-11-25] MEDS: ACETAMINOPHEN 325MG TABLET PO PRN (03:06)
[2019-11-25] MEDS: INSULIN GLARGINE UD 100 UNITS/ML SYR SUBCUT SCH ×2 (03:40→10:43)
[2019-11-25 05:31] LABS: HEMATOCRIT. 31.5 % (42.0-52.0); HEMOGLOBIN. 10.3 g/dL (14.0-18.0); MEAN CORPUSCULAR HEMOGLOBIN 21.5 pg (28.0-32.0); MEAN PLATELET VOLUME 9.4 fl (7.4-10.4); PLATELET 319 x1000/uL (130-400); RED BLOOD CELL COUNT 4.77 mill/uL (4.7-6.1); RED CELL DISTRIBUTION WIDTH 15.6 % (11.6-14.6)
[2019-11-25 05:53] LABS: PHOSPHORUS 2.7 mg/dL (2.5-4.9)
[2019-11-25] MEDS: VANCOMYCIN 750 MG PREMIX 150 ML IV SCH (06:00)
[2019-11-25] MEDS: MIDODRINE HCL 5MG TABLET PO SCH ×3 (06:26→21:32)
[2019-11-25] MEDS: MEROPENEM 1,000 MG in SODIUM CHLORIDE 0.9% 100 ML IV SCH ×3 (06:26→21:32)
[2019-11-25] MEDS: VANCOMYCIN HCL 1000 MG/20 ML ORAL PO SCH ×3 (06:27→17:58)
[2019-11-25] MEDS: INSULIN LISPRO 100 UNITS/ML SUBCUT SCH ×3 (06:28→17:59)
[2019-11-25] MEDS: BLOOD SUGAR DIAGNOSTIC STRIP TEST SCH ×3 (06:37→17:52)
[2019-11-25] MEDS ORDERED: DILTIAZEM HCL 125 MG in SODIUM CHLORIDE 0.9% 100 ML IV PRN (09:00)
[2019-11-25] MEDS ORDERED: MIDAZOLAM HCL 100 MG in SODIUM CHLORIDE 0.9% 80 ML IV PRN (09:00)
[2019-11-25] MEDS: FLUDROCORTISONE ACETATE 0.1MG TABLET PO SCH (09:02)
[2019-11-25] MEDS: ASCORBIC ACID 500 MG TABLET PO SCH (09:02)
[2019-11-25] MEDS: ZINC SULFATE 220 MG ( 50 ) CAPSULE PO SCH (09:02)
[2019-11-25] MEDS: CITRIC ACID/SODIUM CITRATE SOLN 30ML UDC NG SCH ×3 (09:02→16:48)
[2019-11-25] MEDS: MULTIVITAMINS,THER W-MINERALS TABLET PO SCH (09:02)
[2019-11-25] MEDS: PANTOPRAZOLE SODIUM 40 MG/VIAL IV SCH (09:02)
[2019-11-25] MEDS: DEXT 5%/0.9% NACL 1,000 ML IV SCH (10:43)
[2019-11-25 11:53] LABS: ATYPICAL LYMPHOCYTES 2; PLATELET ESTIMATE NORMAL
[2019-11-25] MEDS: ENOXAPARIN 30MG/0.3ML SYR SUBCUT SCH ×2 (12:42→21:32)
[2019-11-25 13:06] LABS: BG BASE EXCESS -8.3 mmol/L (-2.0-2.0); BG CARBOXYHEMOGLOBIN 0.3 % (0.5-1.5); BG DEOXYHEMOGLOBIN 2.3 % (0.0-5.0); BG HCO3 ACT 16.3 mmol/L (22.0-26.0); BG METHEMOGLOBIN 0.3 % (0.0-1.5); BG OXYGEN SATURATION 97.7 % (92.0-98.5); BG OXYHEMOGLOBIN 97.1 % (94.0-97.0); BG PCO2 30.6 mmHg (35.0-45.0); BG PH 7.345 (7.350-7.450); BG PO2 109.7 mmHg (75.0-100.0); BG SAMPLE SITE RIGHT BRACHIAL; BG TIDAL VOLUME(mL) 500 mL; BG VENT MODE VENT - A/C; BG VENT RATE 20 set
[2019-11-25] MEDS: PHENYLEPHRINE 100 MG in SODIUM CHLORIDE 0.9% 240 ML IV PRN (17:57)
[2019-11-25] MEDS ORDERED: ENOXAPARIN 40MG/0.4ML SYR SUBCUT SCH (21:00)
[2019-11-25] MEDS: NOREPINEPHRINE 32 MG in SODIUM CHLORIDE 0.9% 218 ML IV PRN (21:54)
[2019-11-26] VITALS (80 sets, daily range): BP systolic 73–150; BP diastolic 30–89
[2019-11-26] MEDS: HYDROCORTISONE SOD SUCCINATE 100 MG/2 ML VIAL IV SCH ×3 (00:13→17:10)
[2019-11-26] MEDS: INSULIN GLARGINE UD 100 UNITS/ML SYR SUBCUT SCH ×3 (00:14→22:34)
[2019-11-26] MEDS: BLOOD SUGAR DIAGNOSTIC STRIP TEST SCH ×4 (00:14→17:00)
[2019-11-26] MEDS: VANCOMYCIN HCL 1000 MG/20 ML ORAL PO SCH ×4 (00:15→17:10)
[2019-11-26] MEDS: INSULIN LISPRO 100 UNITS/ML SUBCUT SCH ×4 (05:29→17:00)
[2019-11-26] MEDS: MIDODRINE HCL 5MG TABLET PO SCH ×3 (05:32→22:28)
[2019-11-26] MEDS: MEROPENEM 1,000 MG in SODIUM CHLORIDE 0.9% 100 ML IV SCH ×3 (05:32→22:27)
[2019-11-26 07:43] LABS: HEMATOCRIT. 28.2 % (42.0-52.0); HEMOGLOBIN. 9.2 g/dL (14.0-18.0); MEAN CORPUSCULAR HEMOGLOBIN 21.3 pg (28.0-32.0); MEAN CORPUSCULAR VOLUME 65.8 fL (80.0-94.0); MEAN PLATELET VOLUME 9.3 fl (7.4-10.4); PLATELET 291 x1000/uL (130-400); RED BLOOD CELL COUNT 4.29 mill/uL (4.7-6.1); RED CELL DISTRIBUTION WIDTH 15.5 % (11.6-14.6)
[2019-11-26 07:56] LABS: PHOSPHORUS 3.3 mg/dL (2.5-4.9)
[2019-11-26] MEDS: FLUDROCORTISONE ACETATE 0.1MG TABLET PO SCH (08:37)
[2019-11-26] MEDS: MULTIVITAMINS,THER W-MINERALS TABLET PO SCH (08:37)
[2019-11-26] MEDS: CITRIC ACID/SODIUM CITRATE SOLN 30ML UDC NG SCH ×3 (08:37→17:10)
[2019-11-26] MEDS: ASCORBIC ACID 500 MG TABLET PO SCH (08:37)
[2019-11-26] MEDS: PANTOPRAZOLE SODIUM 40 MG/VIAL IV SCH (08:37)
[2019-11-26] MEDS: ZINC SULFATE 220 MG ( 50 ) CAPSULE PO SCH (08:37)
[2019-11-26] MEDS: ENOXAPARIN 30MG/0.3ML SYR SUBCUT SCH ×2 (08:44→20:37)
[2019-11-26] MEDS ORDERED: ALBUMIN HUMAN 25GM/100ML (25%) IV SCH (08:45)
[2019-11-26 09:20] LABS: PLATELET ESTIMATE NORMAL
[2019-11-26] MEDS: DEXT 5%/0.9% NACL 1,000 ML IV SCH (20:38)
[2019-11-26] MEDS: NOREPINEPHRINE 32 MG in SODIUM CHLORIDE 0.9% 218 ML IV PRN (23:05)
[2019-11-27] VITALS (98 sets, daily range): BP systolic 78–136; BP diastolic 43–90
[2019-11-27] MEDS: VANCOMYCIN HCL 1000 MG/20 ML ORAL PO SCH ×5 (00:59→23:29)
[2019-11-27] MEDS: HYDROCORTISONE SOD SUCCINATE 100 MG/2 ML VIAL IV SCH ×4 (00:59→23:29)
[2019-11-27] MEDS: PHENYLEPHRINE 100 MG in SODIUM CHLORIDE 0.9% 240 ML IV PRN (01:04)
[2019-11-27] MEDS: BLOOD SUGAR DIAGNOSTIC STRIP TEST SCH ×5 (06:00→23:52)
[2019-11-27] MEDS: INSULIN LISPRO 100 UNITS/ML SUBCUT SCH ×5 (06:00→23:53)
[2019-11-27] MEDS: MEROPENEM 1,000 MG in SODIUM CHLORIDE 0.9% 100 ML IV SCH ×2 (06:22→13:00)
[2019-11-27] MEDS: MIDODRINE HCL 5MG TABLET PO SCH ×3 (06:23→21:20)
[2019-11-27 06:41] LABS: HEMATOCRIT. 28.2 % (42.0-52.0); HEMOGLOBIN. 9.1 g/dL (14.0-18.0); MEAN CORPUSCULAR HEMOGLOBIN 21.5 pg (28.0-32.0); MEAN CORPUSCULAR VOLUME 66.2 fL (80.0-94.0); MEAN PLATELET VOLUME 9.6 fl (7.4-10.4); PLATELET 323 x1000/uL (130-400); RED BLOOD CELL COUNT 4.26 mill/uL (4.7-6.1); RED CELL DISTRIBUTION WIDTH 15.2 % (11.6-14.6)
[2019-11-27 06:55] LABS: PHOSPHORUS 3.1 mg/dL (2.5-4.9)
[2019-11-27] MEDS: PANTOPRAZOLE SODIUM 40 MG/VIAL IV SCH (09:05)
[2019-11-27] MEDS: FLUDROCORTISONE ACETATE 0.1MG TABLET PO SCH (09:05)
[2019-11-27] MEDS: ASCORBIC ACID 500 MG TABLET PO SCH (09:05)
[2019-11-27] MEDS: MULTIVITAMINS,THER W-MINERALS TABLET PO SCH (09:06)
[2019-11-27] MEDS: ENOXAPARIN 30MG/0.3ML SYR SUBCUT SCH ×2 (09:06→21:20)
[2019-11-27] MEDS: ZINC SULFATE 220 MG ( 50 ) CAPSULE PO SCH (09:06)
[2019-11-27] MEDS: CITRIC ACID/SODIUM CITRATE SOLN 30ML UDC NG SCH ×3 (09:06→16:45)
[2019-11-27] MEDS: INSULIN GLARGINE UD 100 UNITS/ML SYR SUBCUT SCH ×2 (09:09→21:53)
[2019-11-27 10:01] LABS: PLATELET ESTIMATE NORMAL
[2019-11-27 12:12] LABS: BG BASE EXCESS -5.7 mmol/L (-2.0-2.0); BG CARBOXYHEMOGLOBIN 0.3 % (0.5-1.5); BG DEOXYHEMOGLOBIN 4.4 % (0.0-5.0); BG FRACTION INSPIRED OXYGEN 35; BG HCO3 ACT 18.4 mmol/L (22.0-26.0); BG METHEMOGLOBIN 0.1 % (0.0-1.5); BG OXYGEN SATURATION 95.6 % (92.0-98.5); BG OXYHEMOGLOBIN 95.2 % (94.0-97.0); BG PCO2 30.7 mmHg (35.0-45.0); BG PH 7.395 (7.350-7.450); BG PO2 83.7 mmHg (75.0-100.0); BG SAMPLE SITE RIGHT RADIAL; BG TIDAL VOLUME(mL) 500 mL; BG TOTAL HEMOGLOBIN 9.6 g/dL (12.0-18.0); BG VENT MODE VENT - A/C; BG VENT RATE 20 set
[2019-11-27] MEDS: METOCLOPRAMIDE HCL 10MG/2ML VIAL IV SCH ×2 (16:45→23:29)
[2019-11-27] MEDS ORDERED: VANCOMYCIN 750 MG PREMIX 150 ML IV NR (21:00)
[2019-11-27] MEDS: DEXT 5%/0.9% NACL 1,000 ML IV SCH (21:50)
[2019-11-27] MEDS: ACETAMINOPHEN 325MG TABLET PO PRN (23:28)
[2019-11-28] VITALS (92 sets, daily range): BP systolic 63–132; BP diastolic 30–88
[2019-11-28] MEDS: MEROPENEM 1,000 MG in SODIUM CHLORIDE 0.9% 100 ML IV SCH ×2 (01:18→12:47)
[2019-11-28] MEDS: INSULIN LISPRO 100 UNITS/ML SUBCUT SCH ×3 (06:00→17:22)
[2019-11-28] MEDS: METOCLOPRAMIDE HCL 10MG/2ML VIAL IV SCH ×3 (06:03→17:21)
[2019-11-28] MEDS: MIDODRINE HCL 5MG TABLET PO SCH ×3 (06:04→21:21)
[2019-11-28] MEDS: VANCOMYCIN HCL 1000 MG/20 ML ORAL PO SCH ×3 (06:04→17:21)
[2019-11-28 06:25] LABS: PHOSPHORUS 3.3 mg/dL (2.5-4.9)
[2019-11-28] MEDS: PHENYLEPHRINE 100 MG in SODIUM CHLORIDE 0.9% 240 ML IV PRN (06:52)
[2019-11-28] MEDS: BLOOD SUGAR DIAGNOSTIC STRIP TEST SCH ×3 (06:53→17:22)
[2019-11-28 06:58] LABS: HEMATOCRIT. 29.9 % (42.0-52.0); HEMOGLOBIN. 9.5 g/dL (14.0-18.0); MEAN CORPUSCULAR HEMOGLOBIN 21.1 pg (28.0-32.0); MEAN CORPUSCULAR VOLUME 66.5 fL (80.0-94.0); MEAN PLATELET VOLUME 9.1 fl (7.4-10.4); PLATELET 402 x1000/uL (130-400); RED BLOOD CELL COUNT 4.49 mill/uL (4.7-6.1); RED CELL DISTRIBUTION WIDTH 15.7 % (11.6-14.6)
[2019-11-28 08:09] LABS: BG BASE EXCESS -5.4 mmol/L (-2.0-2.0); BG CARBOXYHEMOGLOBIN 0.3 % (0.5-1.5); BG DEOXYHEMOGLOBIN 2.4 % (0.0-5.0); BG FRACTION INSPIRED OXYGEN 35; BG HCO3 ACT 18.4 mmol/L (22.0-26.0); BG METHEMOGLOBIN 0.3 % (0.0-1.5); BG OXYGEN SATURATION 97.6 % (92.0-98.5); BG PCO2 30.1 mmHg (35.0-45.0); BG PH 7.405 (7.350-7.450); BG PO2 108.9 mmHg (75.0-100.0); BG SAMPLE SITE RIGHT BRACHIAL; BG TIDAL VOLUME(mL) 500 mL; BG TOTAL HEMOGLOBIN 10.2 g/dL (12.0-18.0); BG VENT MODE VENT - A/C; BG VENT RATE 20 set
[2019-11-28] MEDS: HYDROCORTISONE SOD SUCCINATE 100 MG/2 ML VIAL IV SCH ×2 (09:26→17:21)
[2019-11-28] MEDS: PANTOPRAZOLE SODIUM 40 MG/VIAL IV SCH (09:26)
[2019-11-28] MEDS: CITRIC ACID/SODIUM CITRATE SOLN 30ML UDC NG SCH ×3 (09:26→17:21)
[2019-11-28] MEDS: ZINC SULFATE 220 MG ( 50 ) CAPSULE PO SCH (09:27)
[2019-11-28] MEDS: ASCORBIC ACID 500 MG TABLET PO SCH (09:27)
[2019-11-28] MEDS: MULTIVITAMINS,THER W-MINERALS TABLET PO SCH (09:27)
[2019-11-28] MEDS: ENOXAPARIN 30MG/0.3ML SYR SUBCUT SCH ×2 (09:27→20:51)
[2019-11-28] MEDS: FLUDROCORTISONE ACETATE 0.1MG TABLET PO SCH (09:27)
[2019-11-28 10:24] LABS: NUCLEATED RED BLOOD CELLS 1 /100 WBC; PLATELET ESTIMATE NORMAL
[2019-11-28] MEDS: INSULIN GLARGINE UD 100 UNITS/ML SYR SUBCUT SCH ×2 (10:46→22:06)
[2019-11-28] MEDS ORDERED: SODIUM BICARBONATE 4% (2.4MEQ) 5ML VIAL IV ONE (14:55)
[2019-11-28] MEDS ORDERED: LIDOCAINE HCL 1% 20ML VIAL (Pyxis) INJ ONE (14:55)
[2019-11-28 15:11] LABS: BG BASE EXCESS -4.7 mmol/L (-2.0-2.0); BG DEOXYHEMOGLOBIN 3.5 % (0.0-5.0); BG FRACTION INSPIRED OXYGEN 40; BG HCO3 ACT 18.3 mmol/L (22.0-26.0); BG METHEMOGLOBIN 0.4 % (0.0-1.5); BG OXYGEN SATURATION 96.5 % (92.0-98.5); BG OXYHEMOGLOBIN 96.1 % (94.0-97.0); BG PCO2 27.2 mmHg (35.0-45.0); BG PH 7.445 (7.350-7.450); BG PO2 89.4 mmHg (75.0-100.0); BG PRESSURE SUPPORT 8; BG SAMPLE SITE RIGHT BRACHIAL; BG TOTAL HEMOGLOBIN 10.7 g/dL (12.0-18.0); BG VENT MODE VENT - CPAP
[2019-11-29] VITALS (94 sets, daily range): BP systolic 69–134; BP diastolic 39–104
[2019-11-29] MEDS: ACETAMINOPHEN 325MG TABLET PO PRN ×2 (00:31→18:12)
[2019-11-29] MEDS: HYDROCORTISONE SOD SUCCINATE 100 MG/2 ML VIAL IV SCH ×3 (00:31→17:16)
[2019-11-29] MEDS: METOCLOPRAMIDE HCL 10MG/2ML VIAL IV SCH ×4 (00:32→17:16)
[2019-11-29] MEDS: VANCOMYCIN HCL 1000 MG/20 ML ORAL PO SCH ×4 (00:33→17:17)
[2019-11-29] MEDS: PHENYLEPHRINE 100 MG in SODIUM CHLORIDE 0.9% 240 ML IV PRN (02:19)
[2019-11-29] MEDS: DEXT 5%/0.9% NACL 1,000 ML IV SCH ×2 (03:54→22:03)
[2019-11-29] MEDS: INSULIN LISPRO 100 UNITS/ML SUBCUT SCH ×4 (06:00→16:56)
[2019-11-29] MEDS: MIDODRINE HCL 5MG TABLET PO SCH ×3 (06:27→22:03)
[2019-11-29] MEDS: BLOOD SUGAR DIAGNOSTIC STRIP TEST SCH ×4 (06:56→16:56)
[2019-11-29 07:03] LABS: HEMATOCRIT. 31.5 % (42.0-52.0); HEMOGLOBIN. 9.5 g/dL (14.0-18.0); MEAN CORPUSCULAR HEMOGLOBIN 20.8 pg (28.0-32.0); MEAN CORPUSCULAR VOLUME 69.2 fL (80.0-94.0); MEAN PLATELET VOLUME 8.7 fl (7.4-10.4); PLATELET 489 x1000/uL (130-400); RED BLOOD CELL COUNT 4.55 mill/uL (4.7-6.1); RED CELL DISTRIBUTION WIDTH 15.9 % (11.6-14.6)
[2019-11-29 07:58] LABS: PHOSPHORUS 3.3 mg/dL (2.5-4.9)
[2019-11-29] MEDS: IPRATROPIUM/ALBUTEROL 0.5-3(2.5)MG/3ML NEB HHN PRN ×2 (08:57→14:20)
[2019-11-29 08:58] LABS: NUCLEATED RED BLOOD CELLS 2 /100 WBC; PLATELET ESTIMATE INCREASED
[2019-11-29] MEDS: ASCORBIC ACID 500 MG TABLET PO SCH (09:26)
[2019-11-29] MEDS: ENOXAPARIN 30MG/0.3ML SYR SUBCUT SCH ×2 (09:26→22:02)
[2019-11-29] MEDS: MULTIVITAMINS,THER W-MINERALS TABLET PO SCH (09:26)
[2019-11-29] MEDS: PANTOPRAZOLE SODIUM 40 MG/VIAL IV SCH ×2 (09:26→22:02)
[2019-11-29] MEDS: FLUDROCORTISONE ACETATE 0.1MG TABLET PO SCH (09:26)
[2019-11-29] MEDS: CITRIC ACID/SODIUM CITRATE SOLN 30ML UDC NG SCH ×3 (09:26→17:15)
[2019-11-29] MEDS: ZINC SULFATE 220 MG ( 50 ) CAPSULE PO SCH (09:26)
[2019-11-29] MEDS ORDERED: ALBUMIN HUMAN 25GM/100ML (25%) IV NR (09:30)
[2019-11-29] MEDS: INSULIN GLARGINE UD 100 UNITS/ML SYR SUBCUT SCH ×2 (10:00→22:05)
[2019-11-29 11:29] LABS: BG BASE EXCESS -5.7 mmol/L (-2.0-2.0); BG CARBOXYHEMOGLOBIN 0.1 % (0.5-1.5); BG DEOXYHEMOGLOBIN 2.5 % (0.0-5.0); BG FRACTION INSPIRED OXYGEN 40; BG HCO3 ACT 18.5 mmol/L (22.0-26.0); BG METHEMOGLOBIN 0.5 % (0.0-1.5); BG OXYGEN SATURATION 97.5 % (92.0-98.5); BG OXYHEMOGLOBIN 96.9 % (94.0-97.0); BG PCO2 31.2 mmHg (35.0-45.0); BG PO2 105.9 mmHg (75.0-100.0); BG PRESSURE SUPPORT 8; BG SAMPLE SITE RIGHT BRACHIAL; BG TOTAL HEMOGLOBIN 9.7 g/dL (12.0-18.0); BG VENT MODE VENT - CPAP
[2019-11-29] MEDS: MAGNESIUM HYDROXIDE 400MG/5ML 30ML UDC PO PRN (11:50)
[2019-11-29] MEDS: MEROPENEM 1,000 MG in SODIUM CHLORIDE 0.9% 100 ML IV SCH (11:51)
[2019-11-30] VITALS (94 sets, daily range): BP systolic 88–129; BP diastolic 54–82
[2019-11-30] MEDS: PHENYLEPHRINE 100 MG in SODIUM CHLORIDE 0.9% 240 ML IV PRN ×2 (00:14→20:38)
[2019-11-30] MEDS: HYDROCORTISONE SOD SUCCINATE 100 MG/2 ML VIAL IV SCH ×3 (00:15→21:18)
[2019-11-30] MEDS: METOCLOPRAMIDE HCL 10MG/2ML VIAL IV SCH ×4 (00:18→17:28)
[2019-11-30] MEDS: MEROPENEM 1,000 MG in SODIUM CHLORIDE 0.9% 100 ML IV SCH ×2 (00:18→11:44)
[2019-11-30] MEDS: BLOOD SUGAR DIAGNOSTIC STRIP TEST SCH ×4 (00:18→17:33)
[2019-11-30 05:53] LABS: HEMOGLOBIN. 9.7 g/dL (14.0-18.0); MEAN CORPUSCULAR VOLUME 69.4 fL (80.0-94.0); MEAN PLATELET VOLUME 8.7 fl (7.4-10.4); PLATELET 526 x1000/uL (130-400); RED BLOOD CELL COUNT 4.61 mill/uL (4.7-6.1); RED CELL DISTRIBUTION WIDTH 16.2 % (11.6-14.6)
[2019-11-30] MEDS: INSULIN LISPRO 100 UNITS/ML SUBCUT SCH ×4 (06:00→17:34)
[2019-11-30] MEDS: MIDODRINE HCL 5MG TABLET PO SCH ×2 (06:03→11:45)
[2019-11-30 06:08] LABS: PHOSPHORUS 3.3 mg/dL (2.5-4.9)
[2019-11-30] MEDS: CITRIC ACID/SODIUM CITRATE SOLN 30ML UDC NG SCH ×3 (08:41→17:28)
[2019-11-30] MEDS: PANTOPRAZOLE SODIUM 40 MG/VIAL IV SCH ×2 (08:41→21:18)
[2019-11-30] MEDS: ZINC SULFATE 220 MG ( 50 ) CAPSULE PO SCH (08:42)
[2019-11-30] MEDS: ASCORBIC ACID 500 MG TABLET PO SCH (08:42)
[2019-11-30] MEDS: ENOXAPARIN 30MG/0.3ML SYR SUBCUT SCH ×2 (08:42→21:23)
[2019-11-30] MEDS: MULTIVITAMINS,THER W-MINERALS TABLET PO SCH (08:42)
[2019-11-30] MEDS: FLUDROCORTISONE ACETATE 0.1MG TABLET PO SCH (08:42)
[2019-11-30 09:02] LABS: NUCLEATED RED BLOOD CELLS 4 /100 WBC; PLATELET ESTIMATE INCREASED
[2019-11-30] MEDS: IPRATROPIUM/ALBUTEROL 0.5-3(2.5)MG/3ML NEB HHN PRN (10:32)
[2019-11-30] MEDS: INSULIN GLARGINE UD 100 UNITS/ML SYR SUBCUT SCH ×2 (10:52→23:00)
[2019-11-30] MEDS: ACETAMINOPHEN 325MG TABLET PO PRN (11:45)
[2019-11-30] MEDS: VANCOMYCIN HCL 1000 MG/20 ML ORAL PO SCH ×2 (17:28→21:19)
[2019-11-30] MEDS: DEXT 5%/0.45% NACL KCL 10MEQ/L 1,000 ML IV SCH (17:38)
[2019-12-01] VITALS (95 sets, daily range): BP systolic 71–123; BP diastolic 40–74
[2019-12-01] MEDS: MEROPENEM 1,000 MG in SODIUM CHLORIDE 0.9% 100 ML IV SCH ×2 (00:38→12:09)
[2019-12-01] MEDS: METOCLOPRAMIDE HCL 10MG/2ML VIAL IV SCH ×4 (00:51→17:44)
[2019-12-01] MEDS: BLOOD SUGAR DIAGNOSTIC STRIP TEST SCH ×4 (06:00→17:44)
[2019-12-01] MEDS: INSULIN LISPRO 100 UNITS/ML SUBCUT SCH ×4 (06:00→17:44)
[2019-12-01] MEDS: DEXT 5%/0.45% NACL KCL 10MEQ/L 1,000 ML IV SCH ×2 (06:20→20:49)
[2019-12-01 06:36] LABS: HEMATOCRIT. 30.7 % (42.0-52.0); HEMOGLOBIN. 9.3 g/dL (14.0-18.0); MEAN CORPUSCULAR HEMOGLOBIN 21.2 pg (28.0-32.0); MEAN PLATELET VOLUME 8.5 fl (7.4-10.4); PLATELET 526 x1000/uL (130-400); RED BLOOD CELL COUNT 4.39 mill/uL (4.7-6.1); RED CELL DISTRIBUTION WIDTH 16.6 % (11.6-14.6)
[2019-12-01 06:46] LABS: INR 1.5; PROTHROMBIN TIME 15.5 sec (9.6-11.0)
[2019-12-01 07:04] LABS: PHOSPHORUS 3.3 mg/dL (2.5-4.9)
[2019-12-01] MEDS ORDERED: ALBUMIN HUMAN 25GM/100ML (25%) IV NR (08:40)
[2019-12-01] MEDS: FLUDROCORTISONE ACETATE 0.1MG TABLET PO SCH (08:57)
[2019-12-01] MEDS: ENOXAPARIN 30MG/0.3ML SYR SUBCUT SCH ×2 (08:57→21:17)
[2019-12-01] MEDS: PANTOPRAZOLE SODIUM 40 MG/VIAL IV SCH ×2 (08:57→21:13)
[2019-12-01] MEDS: CITRIC ACID/SODIUM CITRATE SOLN 30ML UDC NG SCH ×3 (08:58→17:44)
[2019-12-01] MEDS: HYDROCORTISONE SOD SUCCINATE 100 MG/2 ML VIAL IV SCH ×2 (08:58→21:13)
[2019-12-01] MEDS: MULTIVITAMINS,THER W-MINERALS TABLET PO SCH (08:59)
[2019-12-01] MEDS: ASCORBIC ACID 500 MG TABLET PO SCH (08:59)
[2019-12-01] MEDS: ZINC SULFATE 220 MG ( 50 ) CAPSULE PO SCH (08:59)
[2019-12-01] MEDS: VANCOMYCIN HCL 1000 MG/20 ML ORAL PO SCH ×4 (09:00→21:14)
[2019-12-01] MEDS: INSULIN GLARGINE UD 100 UNITS/ML SYR SUBCUT SCH ×2 (10:26→22:00)
[2019-12-01 10:37] LABS: NUCLEATED RED BLOOD CELLS 7 /100 WBC; PLATELET ESTIMATE INCREASED
[2019-12-01] MEDS: PHENYLEPHRINE 100 MG in SODIUM CHLORIDE 0.9% 240 ML IV PRN (17:45)
[2019-12-01 22:28] LABS: BG BASE EXCESS -4.9 mmol/L (-2.0-2.0); BG CARBOXYHEMOGLOBIN 0.8 % (0.5-1.5); BG DEOXYHEMOGLOBIN 1.6 % (0.0-5.0); BG FRACTION INSPIRED OXYGEN 40; BG HCO3 ACT 20.1 mmol/L (22.0-26.0); BG METHEMOGLOBIN 0.6 % (0.0-1.5); BG OXYGEN SATURATION 98.4 % (92.0-98.5); BG PCO2 36.5 mmHg (35.0-45.0); BG PH 7.358 (7.350-7.450); BG PO2 141.9 mmHg (75.0-100.0); BG SAMPLE SITE RIGHT RADIAL; BG TOTAL HEMOGLOBIN 9.7 g/dL (12.0-18.0); BG VENT MODE NASAL CANNULA
[2019-12-02] VITALS (94 sets, daily range): BP systolic 67–163; BP diastolic 26–114
[2019-12-02] MEDS: METOCLOPRAMIDE HCL 10MG/2ML VIAL IV SCH ×5 (02:50→23:18)
[2019-12-02] MEDS: BLOOD SUGAR DIAGNOSTIC STRIP TEST SCH ×5 (06:00→23:33)
[2019-12-02] MEDS: INSULIN LISPRO 100 UNITS/ML SUBCUT SCH ×5 (06:00→23:33)
[2019-12-02] MEDS: HYDROCORTISONE SOD SUCCINATE 100 MG/2 ML VIAL IV SCH ×3 (06:14→21:33)
[2019-12-02 07:19] LABS: HEMATOCRIT. 31.1 % (42.0-52.0); HEMOGLOBIN. 9.2 g/dL (14.0-18.0); MEAN CORPUSCULAR HEMOGLOBIN 20.9 pg (28.0-32.0); MEAN CORPUSCULAR VOLUME 70.7 fL (80.0-94.0); MEAN PLATELET VOLUME 8.4 fl (7.4-10.4); PLATELET 479 x1000/uL (130-400)
[2019-12-02 07:34] LABS: PHOSPHORUS 3.6 mg/dL (2.5-4.9)
[2019-12-02] MEDS: PANTOPRAZOLE SODIUM 40 MG/VIAL IV SCH ×2 (08:34→20:14)
[2019-12-02] MEDS: ASCORBIC ACID 500 MG TABLET PO SCH (08:34)
[2019-12-02] MEDS: ZINC SULFATE 220 MG ( 50 ) CAPSULE PO SCH (08:34)
[2019-12-02] MEDS: CITRIC ACID/SODIUM CITRATE SOLN 30ML UDC NG SCH ×2 (08:34→12:19)
[2019-12-02] MEDS: ENOXAPARIN 30MG/0.3ML SYR SUBCUT SCH ×2 (08:34→20:19)
[2019-12-02] MEDS: MULTIVITAMINS,THER W-MINERALS TABLET PO SCH (08:34)
[2019-12-02] MEDS: FLUDROCORTISONE ACETATE 0.1MG TABLET PO SCH (08:34)
[2019-12-02] MEDS: VANCOMYCIN HCL 1000 MG/20 ML ORAL PO SCH ×4 (08:35→20:14)
[2019-12-02] MEDS: INSULIN GLARGINE UD 100 UNITS/ML SYR SUBCUT SCH ×2 (10:16→21:34)
[2019-12-02 10:26] LABS: NUCLEATED RED BLOOD CELLS 8 /100 WBC
[2019-12-02 10:27] LABS: PLATELET ESTIMATE INCREASED
[2019-12-02] MEDS ORDERED: VANCOMYCIN 750 MG PREMIX 150 ML IV NR (11:00)
[2019-12-02] MEDS: DEXT 5%/0.45% NACL KCL 10MEQ/L 1,000 ML IV SCH (11:08)
[2019-12-02] MEDS: MEROPENEM 1,000 MG in SODIUM CHLORIDE 0.9% 100 ML IV SCH ×4 (11:08→23:18)
[2019-12-02] MEDS: PHENYLEPHRINE 100 MG in SODIUM CHLORIDE 0.9% 240 ML IV PRN ×3 (13:02→20:20)
[2019-12-02 17:41] LABS: BG BASE EXCESS -7.1 mmol/L (-2.0-2.0); BG CARBOXYHEMOGLOBIN 0.7 % (0.5-1.5); BG DEOXYHEMOGLOBIN 4.6 % (0.0-5.0); BG FRACTION INSPIRED OXYGEN 28; BG HCO3 ACT 17.1 mmol/L (22.0-26.0); BG METHEMOGLOBIN 0.4 % (0.0-1.5); BG OXYGEN SATURATION 95.3 % (92.0-98.5); BG OXYHEMOGLOBIN 94.3 % (94.0-97.0); BG PCO2 30.2 mmHg (35.0-45.0); BG PH 7.371 (7.350-7.450); BG PO2 82.4 mmHg (75.0-100.0); BG SAMPLE SITE RIGHT RADIAL; BG TOTAL HEMOGLOBIN 10.4 g/dL (12.0-18.0); BG VENT MODE NASAL CANNULA
[2019-12-02] MEDS: NOREPINEPHRINE 32 MG in SODIUM CHLORIDE 0.9% 218 ML IV PRN (17:46)
[2019-12-02] MEDS: SODIUM BICARBONATE 100 MEQ in DEXTROSE 5% WATER 1,000 ML IV SCH (19:13)
[2019-12-02 20:36] LABS: CLARITY URINE TURBID (CLEAR); COLOR URINE DARK YELLOW (YELLOW); KETONES URINE TRACE (NEGATIVE); LEUKOCYTE ESTERASE URINE 2+ (NEGATIVE); NITRITE URINE POSITIVE (NEGATIVE); OCCULT BLOOD URINE NEGATIVE (NEGATIVE); PH URINE 5.5 (4.5-8.0); PROTEIN URINE 2+ (NEGATIVE); SPECIFIC GRAVITY URINE 1.018 (1.005-1.030)
[2019-12-02 20:53] LABS: BG BASE EXCESS -6.5 mmol/L (-2.0-2.0); BG CARBOXYHEMOGLOBIN 1.1 % (0.5-1.5); BG DEOXYHEMOGLOBIN 5.4 % (0.0-5.0); BG FRACTION INSPIRED OXYGEN 28; BG HCO3 ACT 18.1 mmol/L (22.0-26.0); BG METHEMOGLOBIN 0.5 % (0.0-1.5); BG OXYGEN SATURATION 94.5 % (92.0-98.5); BG PH 7.358 (7.350-7.450); BG PO2 77.9 mmHg (75.0-100.0); BG SAMPLE SITE LEFT RADIAL; BG TOTAL HEMOGLOBIN 10.9 g/dL (12.0-18.0); BG VENT MODE NASAL CANNULA
[2019-12-03] VITALS (102 sets, daily range): BP systolic 65–132; BP diastolic 19–92
[2019-12-03] MEDS: PHENYLEPHRINE 100 MG in SODIUM CHLORIDE 0.9% 240 ML IV PRN ×2 (02:00→09:42)
[2019-12-03] MEDS: INSULIN LISPRO 100 UNITS/ML SUBCUT SCH ×3 (06:00→18:00)
[2019-12-03] MEDS: BLOOD SUGAR DIAGNOSTIC STRIP TEST SCH ×3 (06:00→17:32)
[2019-12-03] MEDS: METOCLOPRAMIDE HCL 10MG/2ML VIAL IV SCH ×3 (06:07→18:48)
[2019-12-03] MEDS: HYDROCORTISONE SOD SUCCINATE 100 MG/2 ML VIAL IV SCH ×3 (06:07→21:23)
[2019-12-03 06:54] LABS: HEMATOCRIT. 35.4 % (42.0-52.0); HEMOGLOBIN. 10.2 g/dL (14.0-18.0); MEAN CORPUSCULAR HEMOGLOBIN 20.7 pg (28.0-32.0); MEAN PLATELET VOLUME 8.8 fl (7.4-10.4); PLATELET 550 x1000/uL (130-400); RED BLOOD CELL COUNT 4.92 mill/uL (4.7-6.1); RED CELL DISTRIBUTION WIDTH 17.2 % (11.6-14.6)
[2019-12-03] MEDS: SODIUM BICARBONATE 100 MEQ in DEXTROSE 5% WATER 1,000 ML IV SCH ×3 (07:00→07:01)
[2019-12-03 07:21] LABS: CHLORIDE 106 mEq/L (98-107)
[2019-12-03 07:26] LABS: PHOSPHORUS 4.1 mg/dL (2.5-4.9)
[2019-12-03] MEDS ORDERED: ETOMIDATE 2MG/ML 10ML VIAL IV ONE (08:00)
[2019-12-03] MEDS ORDERED: SUCCINYLCHOLINE CHLORIDE 200MG/10ML IV ONE (08:00)
[2019-12-03] MEDS: FLUDROCORTISONE ACETATE 0.1MG TABLET PO SCH (09:00)
[2019-12-03] MEDS: MULTIVITAMINS,THER W-MINERALS TABLET PO SCH (09:00)
[2019-12-03] MEDS: ZINC SULFATE 220 MG ( 50 ) CAPSULE PO SCH (09:00)
[2019-12-03] MEDS: ASCORBIC ACID 500 MG TABLET PO SCH (09:00)
[2019-12-03] MEDS: PANTOPRAZOLE SODIUM 40 MG/VIAL IV SCH ×2 (09:00→21:22)
[2019-12-03 09:12] LABS: NUCLEATED RED BLOOD CELLS 36 /100 WBC
[2019-12-03 09:14] LABS: PLATELET ESTIMATE INCREASED
[2019-12-03] MEDS: VANCOMYCIN HCL 1000 MG/20 ML ORAL PO SCH ×4 (09:42→21:23)
[2019-12-03] MEDS: ENOXAPARIN 30MG/0.3ML SYR SUBCUT SCH (09:43)
[2019-12-03 09:56] LABS: BG BASE EXCESS -9.8 mmol/L (-2.0-2.0); BG CARBOXYHEMOGLOBIN 0.3 % (0.5-1.5); BG DEOXYHEMOGLOBIN 6.7 % (0.0-5.0); BG FRACTION INSPIRED OXYGEN 100; BG HCO3 ACT 16.7 mmol/L (22.0-26.0); BG METHEMOGLOBIN 0.5 % (0.0-1.5); BG OXYGEN SATURATION 93.2 % (92.0-98.5); BG OXYHEMOGLOBIN 92.5 % (94.0-97.0); BG PCO2 38.9 mmHg (35.0-45.0); BG PO2 82.4 mmHg (75.0-100.0); BG SAMPLE SITE RIGHT RADIAL; BG TIDAL VOLUME(mL) 500 mL; BG TOTAL HEMOGLOBIN 10.7 g/dL (12.0-18.0); BG VENT MODE VENT - A/C; BG VENT RATE 14 set
[2019-12-03] MEDS: INSULIN GLARGINE UD 100 UNITS/ML SYR SUBCUT SCH ×2 (10:00→22:49)
[2019-12-03] MEDS ORDERED: SODIUM BICARBONATE 8.4% 1 MEQ/ML 50ML SYR IV NR (10:15)
[2019-12-03] MEDS ORDERED: ALBUMIN HUMAN 25GM/100ML (25%) IV NR (10:15)
[2019-12-03] MEDS: MEROPENEM 1,000 MG in SODIUM CHLORIDE 0.9% 100 ML IV SCH (11:10)
[2019-12-03] MEDS ORDERED: SODIUM BICARBONATE 150 MEQ in DEXTROSE 5% WATER 1,000 ML IV SCH (16:00)
[2019-12-03] MEDS: FENTANYL CITRATE/PF 1,000 MCG in SODIUM CHLORIDE 0.9% 80 ML IV PRN ×2 (16:20→23:01)
[2019-12-03] MEDS: NOREPINEPHRINE 32 MG in SODIUM CHLORIDE 0.9% 218 ML IV PRN (22:03)
[2019-12-04] VITALS: BP 98/61
[2019-12-04] MEDS ORDERED: ENOXAPARIN 40MG/0.4ML SYR SUBCUT SCH (09:00)
[2019-12-05 08:11] LABS: MICROALBUMIN RANDOM URINE 630.1 ug/mL (Not Estab.)
== END 2019-12-04 02:00 | disposition short-term general hospital (02) | DRG 870 ==
LOC: ER 10:41 → MICUSO 13:06 → EDBEDREQ 13:09 → ENRESERV 20:18 → CVICU 11-22 04:40
PROVIDERS: ADMIT Internal Medicine; ATTEND Internal Medicine
PROC: 06HY33Z Insertion of Infusion Device into Lower Vein, Percutaneous Approach (ICD-10-PCS; 2019-11-20)
PROC: 5A1955Z Respiratory Ventilation, Greater than 96 Consecutive Hours (ICD-10-PCS; principal; 2019-11-23)
PROC: 0BH18EZ Insertion of Endotracheal Airway into Trachea, Via Natural or Artificial Opening Endoscopic (ICD-10-PCS; 2019-11-23)
PROC: 0BJ08ZZ Inspection of Tracheobronchial Tree, Via Natural or Artificial Opening Endoscopic (ICD-10-PCS; 2019-11-24)
PROC: 02HV33Z Insertion of Infusion Device into Superior Vena Cava, Percutaneous Approach (ICD-10-PCS; 2019-11-28)
PROC: B548ZZA Ultrasonography of Superior Vena Cava, Guidance (ICD-10-PCS; 2019-11-28)
DX: A41.59 Other Gram-negative sepsis (principal); L89.153 Pressure ulcer of sacral region, stage 3; L89.894 Pressure ulcer of other site, stage 4; E43 Unspecified severe protein-calorie malnutrition; R65.21 Severe sepsis with septic shock; G93.41 Metabolic encephalopathy; J69.0 Pneumonitis due to inhalation of food and vomit; K72.00 Acute and subacute hepatic failure without coma; J96.01 Acute respiratory failure with hypoxia; J15.212 Pneumonia due to Methicillin resistant Staphylococcus aureus; J15.211 Pneumonia due to Methicillin susceptible Staphylococcus aureus; K76.7 Hepatorenal syndrome; N17.9 Acute kidney failure, unspecified; N39.0 Urinary tract infection, site not specified; C85.90 Non-Hodgkin lymphoma, unspecified, unspecified site; E27.40 Unspecified adrenocortical insufficiency; M86.9 Osteomyelitis, unspecified; I47.1 Supraventricular tachycardia; D68.59 Other primary thrombophilia; Z99.11 Dependence on respirator [ventilator] status; D64.9 Anemia, unspecified; F41.9 Anxiety disorder, unspecified; E66.01 Morbid (severe) obesity due to excess calories; Z20.828 Contact with and (suspected) exposure to other viral communicable diseases; K52.9 Noninfective gastroenteritis and colitis, unspecified; I48.0 Paroxysmal atrial fibrillation; T38.0X5A Adverse effect of glucocorticoids and synthetic analogues, initial encounter; K75.89 Other specified inflammatory liver diseases; R59.1 Generalized enlarged lymph nodes; A41.02 Sepsis due to Methicillin resistant Staphylococcus aureus; K29.00 Acute gastritis without bleeding; K74.60 Unspecified cirrhosis of liver; K80.20 Calculus of gallbladder without cholecystitis without obstruction; K82.8 Other specified diseases of gallbladder; I12.9 Hypertensive chronic kidney disease with stage 1 through stage 4 chronic kidney disease, or unspecified chronic kidney disease; E11.22 Type 2 diabetes mellitus with diabetic chronic kidney disease; N18.9 Chronic kidney disease, unspecified; Z79.891 Long term (current) use of opiate analgesic; Z79.899 Other long term (current) drug therapy; Z79.1 Long term (current) use of non-steroidal anti-inflammatories (NSAID); Z68.33 Body mass index [BMI] 33.0-33.9, adult; Z86.718 Personal history of other venous thrombosis and embolism; Z95.828 Presence of other vascular implants and grafts; Z74.01 Bed confinement status; Y92.89 Other specified places as the place of occurrence of the external cause; Z82.49 Family history of ischemic heart disease and other diseases of the circulatory system; Z83.3 Family history of diabetes mellitus; Z87.440 Personal history of urinary (tract) infections; Z03.818 Encounter for observation for suspected exposure to other biological agents ruled out
CPT/HCPCS: 31500; 36415; 36556; 36600; 71045; 74018; 74176; 76700; 76770; 76937; 80048; 80053; 80076; 80202; 81003; 82043; 82140; 82375; 82533; 82550; 82570; 82805; 82962; 83036; 83605; 83615; 83735; 83880; 84100; 84134; 84145; 84300; 84443; 84484; 85025; 86703; 86705; 86709; 86803; 87015; 87045; 87070; 87077; 87106; 87186; 87340; 87427; 87449; 87493; 87635; 92610; 93005; 93970; 94002; 94003; 94640; 96361; 96365; 96366; 96368; 99291; C1725; C9113; J0330; J1650; J1720; J1815; J2185; J2370; J2543; J2765; J3010; J3370; J3480; J3490; J7030; J7042; J7050; J7060; J7070; P9047; Q9963